=== PATIENT | female | born 1945 | race Caucasian/White ===

== ENCOUNTER → 2016-12-29 | Outpatient (CLI) | payer OTHER | LOC: CIMAGING 14:17 | PROVIDERS: ATTEND Internal Medicine | DX: M25.571 Pain in right ankle and joints of right foot (principal); F41.9 Anxiety disorder, unspecified; F32.9 Major depressive disorder, single episode, unspecified; G60.8 Other hereditary and idiopathic neuropathies | CPT/HCPCS: 73610; G0463 ==

== ENCOUNTER → 2017-03-09 | Outpatient (CLI) | payer OTHER | LOC: CIMAGING 16:59 | PROVIDERS: ATTEND Internal Medicine | DX: M51.36 Other intervertebral disc degeneration, lumbar region (principal) | CPT/HCPCS: 73502-PO ==

== ENCOUNTER → 2017-03-19 | Outpatient (CLI) | payer OTHER | LOC: FIMAGING 13:46 | PROVIDERS: ATTEND Internal Medicine | DX: M51.36 Other intervertebral disc degeneration, lumbar region (principal); M99.73 Connective tissue and disc stenosis of intervertebral foramina of lumbar region; M51.27 Other intervertebral disc displacement, lumbosacral region; M51.86 Other intervertebral disc disorders, lumbar region ==

== ENCOUNTER → 2017-04-05 | Day surgery (SDC) | payer OTHER ==
[~2017-04-05] MED LIST: IOPAMIDOL (ISOVUE-M 300) 15 ML VIAL ONE; LIDOCAINE 1% 300 MG/30 ML SDV ONE; TRIAMCINOLONE ACETONIDE 200 MG/5 ML MDV IM ONE
== END | disposition home or self-care (01) ==
LOC: MERGE 14:26 → FIMAGING 14:26
PROVIDERS: ATTEND Internal Medicine
DX: M48.06 Spinal stenosis, lumbar region (principal)
CPT/HCPCS: J3301; Q9967

== ENCOUNTER 2017-04-15 15:44 | Emergency (ER) | payer OTHER ==
[2017-04-15 15:54] VITALS: O2SAT 93
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
[2017-04-15] MEDS ORDERED: NS 1,000 ML IV ONE (17:16)
[2017-04-15 18:09] LABS: % IMMATURE GRANULYOCYTES 0.9 % (0.0-1.1); ABSOLUTE IMMATURE GRANULOCYTES 0.13 10^3/uL (0.00-0.10); ABSOLUTE NRBC COUNT 0.02 10^3/uL (0-0.01); ADD DIFF? NO; ADD MORPH? NO; ADD SCAN? NO; ATYPICAL LYMPHOCYTE FLAG 0 (0-99); FRAGMENT RBC FLAG 0 (0-99); HEMATOCRIT 50.3 % (38.0-47.0); HEMOGLOBIN 16.5 g/dL (12.6-16.3); LEFT SHIFT FLG 0 (0-99); LIPEMIA HEMOLYSIS FLAG 80 (0-99); MEAN CELL HEMOGLOBIN 30.2 pg (27.9-34.1); MEAN CELL HEMOGLOBIN CONCENTR. 32.8 g/dL (32.4-36.7); MEAN PLATELET VOLUME 9.2 fL (8.7-11.7); NRBC-AUTO% 0.1 % (0.0-0.2); PLATELET CLUMPS FLAG 40 (0-99); PLATELET COUNT 308 10^3/uL (150-400); RED BLOOD CELL COUNT 5.47 10^6/uL (4.18-5.33); RED CELL DISTRIBUTION WIDTH 12.7 % (11.5-15.2)
[2017-04-15 18:45] LABS: ALANINE AMINOTRANSFERASE 57 IU/L (9-52); ALBUMIN 3.9 g/dL (3.5-5.0); ALKALINE PHOSPHATASE 49 IU/L (38-126); ANION GAP 9 mEq/L (8-16); ASPARTATE AMINOTRANSFERASE 30 IU/L (14-46); BILIRUBIN,TOTAL 0.8 mg/dL (0.1-1.4); BILIRUBIN-CONJUGATED 0.3 mg/dL (0.0-0.5); BILIRUBIN-UNCONJUGATED 0.5 mg/dL (0.0-1.1); CALCIUM 8.6 mg/dL (8.5-10.4); CARBON DIOXIDE 17 mEq/l (22-31); CHLORIDE 116 mEq/L (97-110); CREATININE 0.8 mg/dL (0.6-1.0); GLOMERULAR FILTRATION RATE > 60; GLUCOSE 70 mg/dL (70-100); POTASSIUM 4.4 mEq/L (3.5-5.2); SODIUM 142 mEq/L (134-144)
[2017-04-15 18:57] LABS: TROPONIN I < 0.012 ng/mL (0-0.034)
[2017-04-15 19:16] VITALS: BP 123/84; PULSE 84; RESP 20; TEMP 97.9
== END 2017-04-15 19:34 | disposition home or self-care (01) ==
DX: R19.7 Diarrhea, unspecified (principal); E86.0 Dehydration

== ENCOUNTER 2017-06-10 15:19 | Emergency (ER) | payer OTHER | END 2017-06-10 15:45 | disposition left against medical advice (07) | LOC: CED 15:19 | DX: Z53.21 Procedure and treatment not carried out due to patient leaving prior to being seen by health care provider (principal) ==

== ENCOUNTER → 2017-07-31 | Outpatient (CLI) | payer OTHER | LOC: FIMAGING 11:32 | PROVIDERS: ATTEND Anesthesiology Pain Medicine | DX: M51.34 Other intervertebral disc degeneration, thoracic region (principal); M51.84 Other intervertebral disc disorders, thoracic region ==

== ENCOUNTER 2017-11-22 11:08 | Inpatient (IN) | payer OTHER ==
[2017-11-22 11:40] LABS: PLATELET COUNT 420 10^3/uL (150-400)
[2017-11-22] MEDS ORDERED: ONDANSETRON 4 MG/2 ML VIAL IVP ONE (12:35)
[2017-11-22] MEDS ORDERED: NS 1,000 ML IV ONE (12:36)
--- NOTE | 2017-11-22 12:56 | EDPHY ---
H & P Time Seen by Provider: 11/22/17 11:33 HPI/ROS: Chief complaint. Vomiting, diarrhea HPI. Patient is 71-year-old female with vomiting and diarrhea for 3 days. Unable to keep fluids down. Denies abdominal pain, chest pain, shortness of breath, fever. No blood in emesis or diarrhea. She thinks it was from bad food exposure. She lives by herself and has had difficult time taking care of herself. No similar symptoms previously. ROS Constitutional. no fever/chills, no weakness Eyes. no problems with vision ENT. no sore throat, no nasal drainage Cardiovascular. no chest pain Respiratory. no shortness of breath, no cough Abdominal. Vomiting and diarrhea without abdominal pain . no problems urinating MS. no calf pain/swelling, no neck/back pain, no joint pain Skin. no rash Lymph. no swollen glands Neuro. no headache, no dizziness, no difficulty walking or with speech Past Medical/Surgical History: Chronic pain, IBS, insufficient pancreatic enzymes, depression Social History: Lives by self, daily smoker, no alcohol Smoking Status: Current every day smoker Physical Exam: General Appearance: Alert well-developed female mild distress vital signs are stable Eyes: Pupils equal and round no pallor or injection. ENT, mucous membranes are dry. Pharynx without injection. Respiratory: There are no retractions, lungs are clear to auscultation. Cardiovascular: Regular rate and rhythm. Gastrointestinal: Abdomen is soft and nontender, no masses, bowel sounds normal. Neurological: Awake and alert, sensory and motor exams grossly normal. Skin: Warm and dry, no rashes. Musculoskeletal: Neck is supple nontender. Extremities symmetrical, full range of motion. Psychiatric: Patient is oriented X 3, there is no agitation. Constitutional: Initial Vital Signs Temperature (C) 36.9 C 11/22/17 11:08 Heart Rate 95 11/22/17 11:08 Respiratory Rate 16 11/22/17 11:08 Blood Pressure 128/70 H 11/22/17 11:08 O2 Sat (%) 88 L 11/22/17 11:08 O2 Delivery Mode Nasal Cannula O2 (L/minute) 2 Allergies/Adverse Reactions: No Known Allergies Allergy (Verified 04/15/17 15:50) Home Medications: Medication Instructions Recorded Venlafaxine Xr [Effexor Xr] 37.5 mg PO 12/30/14 Zenphen 12/30/14 buPROPion [Wellbutrin] 75 mg PO 12/30/14 tiZANidine HCL [Zanaflex] 2 mg PO 12/30/14 Wellbutrin 150mg SR (*) mg PO DAILY 03/29/17 traMADol 11/22/17 Medical Decision Making Procedures: IV normal saline with 2nd L home after the 1st L. Zofran for nausea. Zofran is repeated. ED Course/Re-evaluation: I consulted and discussed case with Dr. Means, hospitalist, who agrees to the admission On re-evaluation patient is stable. She and I discussed laboratory evaluation, treatment plan including recommendation for admission. She expresses understanding and agreement Differential Diagnosis: Patient has a markedly elevated white blood cell count however she has no abdominal pain. She has now elevation of her creatinine likely representing dehydration. As she does not have abdominal pain and she has an elevated creatinine no imaging of her abdomen is performed. I considered IBS, gastroenteritis - Data Points Laboratory Results: Laboratory Results 11/22/17 11:08 11/22/17 11:08 11/22/17 11/22/17 11/22/17 11:08 11:08 11:08 WBC 18.61 10^3/uL H 10^3/uL (3.80-9.50) RBC 5.44 10^6/uL H 10^6/uL (4.18-5.33) Hgb 16.9 g/dL H g/dL (12.6-16.3) Hct 49.9 % H % (38.0-47.0) MCV 91.7 fL fL (81.5-99.8) MCH 31.1 pg pg (27.9-34.1) MCHC 33.9 g/dL g/dL (32.4-36.7) RDW 13.4 % % (11.5-15.2) Plt Count 420 10^3/uL H 10^3/uL (150-400) MPV 10.0 fL fL (8.7-11.7) Neut % (Auto) 83.5 % H % (39.3-74.2) Lymph % (Auto) 8.9 % L % (15.0-45.0) Gilchrist % (Auto) 6.9 % % (4.5-13.0) Eos % (Auto) 0.0 % L % (0.6-7.6) Baso % (Auto) 0.2 % L % (0.3-1.7) Nucleat RBC Rel Count 0.0 % % (0.0-0.2) Absolute Neuts (auto) 15.53 10^3/uL H 10^3/uL (1.70-6.50) Absolute Lymphs (auto) 1.65 10^3/uL 10^3/uL (1.00-3.00) Absolute Monos (auto) 1.29 10^3/uL H 10^3/uL (0.30-0.80) Absolute Eos (auto) 0.00 10^3/uL L 10^3/uL (0.03-0.40) Absolute Basos (auto) 0.04 10^3/uL 10^3/uL (0.02-0.10) Absolute Nucleated RBC 0.00 10^3/uL 10^3/uL (0-0.01) Immature Gran % 0.5 % % (0.0-1.1) Immature Gran # 0.10 10^3/uL 10^3/uL (0.00-0.10) Sodium 149 mEq/L H mEq/L (135-145) Potassium 3.9 mEq/L mEq/L (3.5-5.2) Chloride 93 mEq/L L mEq/L (97-110) Carbon Dioxide 34 mEq/l H mEq/l (22-31) Anion Gap 22 mEq/L H mEq/L (8-16) BUN 27 mg/dL H mg/dL (7-23) Creatinine 1.4 mg/dL H mg/dL (0.6-1.0) Estimated GFR 37 Glucose 147 mg/dL H mg/dL (70-100) Calcium 10.9 mg/dL H mg/dL (8.5-10.4) Phosphorus 5.6 mg/dL H mg/dL (2.5-4.5) Total Bilirubin 1.2 mg/dL mg/dL 1.1 mg/dL mg/dL (0.1-1.4) (0.1-1.4) Conjugated Bilirubin 0.6 mg/dL H mg/dL (0.0-0.5) Unconjugated Bilirubin 0.6 mg/dL mg/dL (0.0-1.1) AST 32 IU/L IU/L 29 IU/L IU/L (14-46) (14-46) ALT 41 IU/L IU/L 43 IU/L IU/L (9-52) (9-52) Alkaline Phosphatase 92 IU/L IU/L 93 IU/L IU/L (38-126) (38-126) Total Protein 7.9 g/dL g/dL 7.9 g/dL g/dL (6.3-8.2) (6.3-8.2) Albumin 4.8 g/dL g/dL 4.9 g/dL g/dL (3.5-5.0) (3.5-5.0) Lipase 205 IU/L IU/L (23-300) Medications Given: Discontinued Medications Sodium Chloride (Ns) 1,000 mls @ 0 mls/hr IV ONCE ONE PRN Reason: Wide Open Stop: 11/22/17 12:37 Last Admin: 11/22/17 12:39 Dose: 1,000 mls Ondansetron HCl (Zofran) 4 mg IVP EDNOW ONE Stop: 11/22/17 12:36 Last Admin: 11/22/17 12:39 Dose: 4 mg Departure - Departure Disposition: [facility] Clinical Impression: Dehydration Vomiting Qualifiers: Vomiting type: unspecified Vomiting Intractability: non-intractable Nausea presence: with nausea Qualified Code(s): R11.2 - Nausea with vomiting, unspecified Condition: Fair
[2017-11-22] MEDS ORDERED: PROMETHAZINE HCL 25 MG/ML INJ IVP ONE (14:33)
[2017-11-22] MEDS ORDERED: LORazepam 1 MG TAB PO PRN (16:21)
[2017-11-22] MEDS ORDERED: traMADol 50 MG TAB PO PRN (16:21)
[2017-11-22] MEDS ORDERED: ACETAMINOPHEN 325 MG TAB PO PRN (16:25)
[2017-11-22] MEDS ORDERED: ACETAMINOPHEN 650 MG SUPP PR PRN (16:25)
[2017-11-22] MEDS ORDERED: AMYLASE PO SCH ×2 (16:30→18:00)
[2017-11-22] MEDS ORDERED: LIPASE PO SCH ×2 (16:30→18:00)
[2017-11-22] MEDS ORDERED: PROTEASE PO SCH ×2 (16:30→18:00)
--- NOTE | 2017-11-22 17:12 | GHP ---
[f rep st] HISTORY AND PHYSICAL DATE OF ADMISSION: 11/22/2017 CHIEF COMPLAINT: Abdominal pain. HISTORY: Patient is a 71-year-old female who has had 5 days of nausea, vomiting and diarrhea. It yun s been really more vomiting predominant. She only had diarrhea for 1 day and none for the last coupl e of days. She has a left-sided abdominal pain which she has been attributing to retching. She denie s any fever. She has had some shortness of breath but no chest pain. She thinks she may have eaten something bad because when she vomits she gets the after taste of a [place]ic sauce she put on her food pr ior to her illness. PAST MEDICAL HISTORY: 1. Pancreatic insufficiency. 2. Irritable bowel syndrome. 3. Depression. MEDICATIONS: Please see computer record for full detailed list. ALLERGIES: No known drug allergies. SOCIAL HISTORY: She smokes 3-10 cigarettes per day. One alcoholic beverage per day. She lives [place]. She is getting weaker with this illness. REVIEW OF SYSTEMS: Complete review of systems obtained. Review of systems negative regarding consti tutional, HEENT, GI, pulmonary, cardiovascular, , hematology, skin, musculoskeletal, endocrine, psy ch except for positives and negatives as in HPI. FAMILY HISTORY: Reviewed, noncontributory to presenting complaint. PHYSICAL EXAMINATION: GENERAL: Well-developed female, in no acute distress. VITAL SIGNS: Temperat ure is 36.7, pulse 89, blood pressure 100/60, saturating 88% on room air, 90% on 4 L. EYE: Normal co njunctivae, pupils react to light. ENT: Normal ears, nose. Hearing intact. Normal teeth. Orophary nx moist. NECK: Trachea midline. No thyromegaly. CHEST: Normal, several bilaterally. CAR DIOVASCULAR: Regular rhythm. No murmur. No lower extremity edema. ABDOMEN: Soft. Positive tender ness to palpation left upper quadrant. No hepatosplenomegaly. SKIN: Warm, dry, intact without rash . MUSCULOSKELETAL: No cyanosis, clubbing. Strength 5/5 upper and lower extremities. NEUROLOGIC: C ranial nerves intact, normal sensation light touch. PSYCH: Alert, oriented x3. Normal affect. Martha l judgment. Normal memory. LABORATORY DATA: White count 18.6, hematocrit 49.9, platelets 420, sodium 149, potassium 3.9, chlori de 93, bicarb 34, BUN 27, creatinine 1.4, glucose 147, LFTs are negative. Calcium 10.9, phosphorus 5 .6. This case was discussed with Angel Lopez, emergency room provider. No further imaging was done in [facility] emergency room. ASSESSMENT/PLAN: 1. Intractable nausea, vomiting, and abdominal pain. With her leukocytosis, I think we probably nee d to proceed with a CT scan of the abdomen and pelvis. This syndrome has been going on now for great er than 5 days without relief. We will also check a lactate. 2. Hypoxemia. She is a smoker. We will check a chest x-ray. 3. Acute renal failure due to dehydration. We will continue aggressive IV fluid rehydration. 4. Pancreatic insufficiency. She takes oral enzymes with meals which will be continued as she progr ess her p.o. intake. 5. Tobacco dependence. She can have a nicotine patch if she is feeling withdrawal. 6. Hypercalcemia and hyperphosphatemia. I suspect these are due to her profound dehydration. We wi ll recheck these post hydration. CODE STATUS: Full. ADMISSION STATUS: Will admit to observation. Reevaluate tomorrow regarding ongoing hospitalization. DVT PROPHYLAXIS: She is moderate risk. Will place her on subcu Lovenox. /[id number]/MODL
[2017-11-22] MEDS: HYDROmorphONE/DILAUDID 2 MG/ML INJ IVP PRN (17:28)
[2017-11-22] MEDS: NS 1,000 ML IV SCH (17:29)
--- NOTE | 2017-11-22 21:44 | SOAPPROG ---
SOAP Progress Note Assessment/Plan: Assessment: Asked to see for a 71-year-old female with possible free air. Patient is been sick for over 2 days with 0 vomiting and inability to eat. Came to the ER for evaluation where chest x-ray showed possible free air. Chest is clear/cor regular rhythm/abdomen soft and nontender with positive bowel sounds Impression is possible free air but her symptoms do not fit a perforated viscus. She is afebrile. White count was elevated 18,000 but she had been vomiting Plan: Check CT scan to rule out actual free air as this could be a loop of bowel over the liver or some other explanation 11/22/17 21:41 Objective: Vital Signs Temp Pulse Resp BP Pulse Ox 37.2 C 91 16 129/90 H 94 11/22/17 19:36 11/22/17 20:30 11/22/17 20:30 11/22/17 19:36 11/22/17 20:30 11/21/17 11/22/17 11/23/17 05:59 05:59 05:59 Intake Total 1500 Output Total 300 Balance 1200 ICD10 Worksheet Patient Problems: Problems Problem Status Onset Dehydration Acute Vomiting Acute Diarrhea Acute
[2017-11-22] MEDS: ACETAMN/DIPHENHYDRAMINE 500/25MG TAB PO SCH (21:53)
[2017-11-22] MEDS: buPROPion XL 150 MG TAB PO SCH (21:53)
[2017-11-22] MEDS: PREGABALIN 100 MG CAP PO SCH (21:53)
[2017-11-22] MEDS: VENLAFAXINE XR 75 MG CAP PO SCH (21:53)
[2017-11-23] MEDS: buPROPion XL 150 MG TAB PO SCH ×2 (00:55→22:52)
[2017-11-23] MEDS: ACETAMN/DIPHENHYDRAMINE 500/25MG TAB PO SCH ×2 (00:55→22:52)
[2017-11-23] MEDS: VENLAFAXINE XR 75 MG CAP PO SCH ×2 (00:55→22:52)
[2017-11-23] MEDS: PREGABALIN 100 MG CAP PO SCH ×5 (00:55→22:53)
[2017-11-23] MEDS: ONDANSETRON 4 MG/2 ML VIAL IVP PRN ×3 (02:40→22:46)
[2017-11-23 05:32] LABS: PLATELET COUNT 357 10^3/uL (150-400)
[2017-11-23] MEDS ORDERED: LIPASE PO SCH ×2 (09:00→10:15)
[2017-11-23] MEDS ORDERED: PROTEASE PO SCH ×2 (09:00→10:15)
[2017-11-23] MEDS ORDERED: AMYLASE PO SCH ×2 (09:00→10:15)
[2017-11-23] MEDS ORDERED: NICOTINE 21 MG/24 HR PATCH TD SCH (09:00)
[2017-11-23] MEDS: ENOXAPARIN 40 MG/0.4 ML SYR SC SCH (09:25)
--- NOTE | 2017-11-23 10:22 | ASMTCASEMG ---
Living Arrangements What is your living Answers: Alone arrangement? Who do you live with? Type Of Residence What kind of residence do Answers: House you live in? Discharge Plan Comments Coordination Status Comments Notes: Pt is a 71 y/o female admitted for abdominal pain. Pt will most likely d/c independent when medically stable. No therapies ordered at this time. CM available for changes. Plan: Independent Date Signed: 11/23/2017 10:21 AM Electronically Signed By:YAS Chavez
[2017-11-23] MEDS: NS 1,000 ML IV SCH ×2 (11:31→21:15)
[2017-11-23] MEDS: PANTOPRAZOLE SODIUM 40 MG TAB PO SCH (11:56)
[2017-11-23] MEDS: ZENPEP 25000 UNIT PO SCH (13:14)
--- NOTE | 2017-11-23 15:14 | HOSPPROG ---
Hospitalist Progress Note Assessment/Plan: This is a 71-year-old female new to my care on 11/23/2017 presenting with: # abdominal pain associated with intractable nausea vomiting which I suspect is due to acute gastroenteritis given her symptoms started with diarrhea on Wednesday (now improving but with clinical signs and symptoms of ileus) Plan: -surgery consult was reviewed and appreciated -start clear liquids -continue antiemetics as indicated #Acute renal failure (resolved) # leukocytosis most likely due to retching in the setting of gastroenteritis -continue to monitor # mild hypernatremia -repeat in a.m. # hypoxemia # tobacco dependence #pancreatic insufficiency # hypercalcemia and hyperphosphatemia likely due to dehydration Subjective: Still some nausea and gastric esophageal reflux. Able to tolerate some clear liquids. Denies abdominal pain Objective: Vital Signs Temp Pulse Resp BP Pulse Ox 37 C 96 14 115/55 L 91 L 11/23/17 11:27 11/23/17 11:27 11/23/17 11:27 11/23/17 11:27 11/23/17 11:27 Laboratory Results 11/23/17 05:12 11/23/17 05:12 11/22/17 11/23/17 11/24/17 05:59 05:59 05:59 Intake Total 1500 Output Total 600 Balance 900 - Physical Exam Constitutional: no apparent distress, appears nourished, not in pain Cardiovascular: regular rate and rhythym, no murmur, rub, or gallop Respiratory: no respiratory distress, no rales or rhonchi, clear to auscultation Gastrointestinal: soft, non-tender abdomen, no palpable masses, No normoactive bowel sounds (Hypoactive bowel sounds), No guarding, No rebound Neurologic: AAOx3, sensation intact bilaterally ICD10 Worksheet Patient Problems: Problems Problem Status Onset Diarrhea Acute Vomiting Acute Dehydration Acute
[2017-11-23] MEDS: HYDROmorphONE/DILAUDID 2 MG/ML INJ IVP PRN (16:26)
[2017-11-23] MEDS: LIPASE PO SCH (17:36)
[2017-11-23] MEDS: AMYLASE PO SCH (17:36)
[2017-11-23] MEDS: PROTEASE PO SCH (17:36)
[2017-11-23] MEDS: LORazepam 2 MG/ML INJ IVP PRN (19:23)
[2017-11-24] MEDS: PROMETHAZINE HCL 25 MG/ML INJ IVP PRN ×2 (00:38→22:10)
[2017-11-24] MEDS: LORazepam 2 MG/ML INJ IVP PRN ×3 (03:57→22:10)
[2017-11-24 07:18] LABS: PLATELET COUNT 287 10^3/uL (150-400)
[2017-11-24] MEDS: PREGABALIN 100 MG CAP PO SCH ×3 (08:35→21:49)
[2017-11-24] MEDS: ZENPEP 25000 UNIT PO SCH ×2 (08:35→13:10)
[2017-11-24] MEDS: ENOXAPARIN 40 MG/0.4 ML SYR SC SCH (08:56)
[2017-11-24] MEDS: HYDROmorphONE/DILAUDID 2 MG/ML INJ IVP PRN ×2 (08:56→13:19)
[2017-11-24] MEDS: PANTOPRAZOLE SODIUM 40 MG TAB PO SCH (08:56)
--- NOTE | 2017-11-24 09:35 | PDMN ---
Medical Necessity Medical necessity: M170- gastroenteritis: A-1 day: abd pain with diarrhea, concern for ileus, sgy consult pend., leukocytosis, hypernatremia, hypoxemia,) 88 RA 90% 2-4 L., minimal PO intake, further monitoring of electrolytes, abdominal pain, needed > 2 midnights
--- NOTE | 2017-11-24 12:08 | SOAPPROG ---
SOAP Progress Note Assessment/Plan: Assessment/Plan: 71 Y F diarrhea last week, N/V over weekend. Free air on CT. Nonsurgical abdomen on exam. Seen and examined by myself and Dr. Navarrete yesterday and again by myself this morning. +emesis yesterday afternoon. Reviewed AXR. Free air appears stable. Abdominal exam still benign. +gastric distention. Query GOO or ileus or gastroenteritis? Getting UGIS today per Dr. Navarrete' recommendation. Will continue to follow. S: didn't sleep well last night. some nausea. no emesis overnight. no BM. O: alert, nad ncat, no jaundice, no pallor, mmm ctab rrr abd soft, nt, +rare BS. 11/24/17 12:04 Objective: Vital Signs Temp Pulse Resp BP Pulse Ox 36.9 C 89 18 115/70 93 11/24/17 07:59 11/24/17 07:59 11/24/17 07:59 11/24/17 07:59 11/24/17 07:59 Laboratory Results 11/24/17 06:48 11/24/17 06:46 11/23/17 11/24/17 11/25/17 05:59 05:59 05:59 Intake Total 2982 Output Total 200 Balance 2782 ICD10 Worksheet Patient Problems: Problems Problem Status Onset Dehydration Acute Vomiting Acute Diarrhea Acute
--- NOTE | 2017-11-24 13:19 | HOSPPROG ---
Hospitalist Progress Note Assessment/Plan: Patient is a 71-year-old female who presented the emergency room with abdominal pain as well as nausea. Today is my 1st encounter the patient. Chart reviewed *abdominal pain associated with intractable nausea vomiting -free air was noted on the CT scan. Questionable gastric outlet obstruction versus ileus versus gastroenteritis -to get an upper GI series today -had another emesis with placement of the ng tube -GI to see to do an upper endoscopy #Acute renal failure (resolved) # leukocytosis -continue to monitor #hypernatremia -sodium is up to 150 -has been getting normal saline x 2 days, will change to d5 1/2 normal saline and get repeat labs -has no acute mental changes -not eating -will check a urine osmol and urine na # hypokalemia -add electrolyte protocol # hypoxemia -on 2 liters # tobacco dependence #pancreatic insufficiency -takes pancreatic enzymes # hypercalcemia and hyperphosphatemia likely due to dehydration -resolved #plan: Dr Tompkins to see, will change fluids and ask the swing shift physician to f/u with her sodium Subjective: Yumiko is not having any abdominal pain but is bloated. Has c/o pain from her chronic rib pain. Objective: Vital Signs Temp Pulse Resp BP Pulse Ox 36.9 C 89 18 115/70 93 11/24/17 07:59 11/24/17 07:59 11/24/17 07:59 11/24/17 07:59 11/24/17 07:59 Laboratory Results 11/24/17 06:48 11/24/17 06:46 11/23/17 11/24/17 11/25/17 05:59 05:59 05:59 Intake Total 2982 Output Total 200 Balance 2782 - Physical Exam Constitutional: uncomfortable Eyes: PERRL Ears, Nose, Mouth, Throat: hearing normal Respiratory: no respiratory distress Gastrointestinal: distension, No normoactive bowel sounds (hypoactive), No tenderness Skin: warm Musculoskeletal: full muscle strength Neurologic: AAOx3 Psychiatric: interacting appropriately ICD10 Worksheet Patient Problems: Problems Problem Status Onset Dehydration Acute Vomiting Acute Diarrhea Acute
[2017-11-24] MEDS ORDERED: PROTOCOL POTASSIUM 1 DOSE MISC PRN (13:22)
[2017-11-24] MEDS ORDERED: D5W 1,000 ML IV SCH (15:00)
[2017-11-24] MEDS ORDERED: LR 1,000 ML IV ONE ×2 (15:02→15:30)
[2017-11-24] MEDS ORDERED: LORazepam 2 MG/ML INJ IVP ONE (15:15)
[2017-11-24] MEDS: PROTEASE PO SCH (15:20)
[2017-11-24] MEDS ORDERED: fentaNYL 100 MCG/2 ML INJ ONE (15:20)
[2017-11-24] MEDS ORDERED: MIDAZOLAM 2 MG/2 ML VIAL ONE (15:20)
[2017-11-24] MEDS: LIPASE PO SCH (15:20)
[2017-11-24] MEDS: AMYLASE PO SCH (15:20)
--- NOTE | 2017-11-24 15:23 | PDPROPOC ---
Sedation Plan of Care Sedation Plan of Care: vital signs stable, mental status noted, patient educated of risks, benefits, alternatives, patient can tolerate sedation ASA Classification: ASA 3 Planned drugs: fentanyl, midazolam Mallampati Score: Class 3 Mallampati Reference Image: Patient passed 3-3-2 rule?: Yes
--- NOTE | 2017-11-24 15:41 | GCON ---
[f rep st] CONSULTATION CHIEF COMPLAINT: Dilated stomach, nausea and vomiting. HISTORY OF PRESENT ILLNESS: This 71-year-old woman has a 5-day history of nausea, vomiting, and diarrhea. She does have a history of irritable bowel syndrome, and pancreatic insufficiency. She has about a day's history of diarrhea with left-sided abdominal discomfort. Denies any fevers or chills. She had progressive problems with difficulty eating, unable to keep down liquids. She presented to the hospital, and chest x-ray reported free air in the abdomen. However, she had a CT scan that showed no free air. There was a dilated stomach. She had a fluid distended stomach. She also had evidence of atelectasis. She has no prior history of ulcer disease. Medicines prior to admission only included pancreatic enzyme supplements, Wellbutrin, tramadol. There was no report of NSAID use. Asked to see patient for further evaluation for possible gastric bowel obstruction. PAST MEDICAL HISTORY: Remarkable for pancreatic insufficiency, inflammatory bowel syndrome, depression. ALLERGIES: No known drug allergies. SOCIAL HISTORY: She is a smoker, smokes 3-10 cigarettes per day. One alcoholic beverage a day. Lives alone. FAMILY HISTORY: Negative and noncontributory as it pertains to chief complaint. MEDICATIONS: Prior to admission included pancreatic enzyme 25,000 units per capsule, 2 capsules twice daily, bupropion 300 mg at bedtime, tramadol 50 mg three times daily, Effexor 75 mg at bedtime, multivitamins, herbal supplements, vitamin D3, Tylenol PM, Lyrica 100 mg three times daily, lorazepam 1 mg three times daily, and Zanaflex 4 mg at bedtime. REVIEW OF SYSTEMS: Negative for 10 systems other than mentioned in HPI. PHYSICAL EXAM: VITAL SIGNS: 115/70, heart rate 89, respiratory rate 18, 93% sat on 2 L, 36.9 Celsius temperature. GENERAL: Very pleasant woman, in no acute distress. Sitting in a chair. HEENT: Normocephalic, atraumatic. EOMI. NECK: Supple. No cervical adenopathy. No thyromegaly. LUNGS: Clear. CARDIAC: Normal S1, S2, without murmur. ABDOMEN: Distended, with absent bowel sounds. EXTREMITIES: Without clubbing, cyanosis, edema. SKIN: Warm and dry. NEURO: Nonfocal. PSYCHIATRIC: Alert and oriented x3, with normal affect. LABORATORY DATA: Upper GI series shows markedly distended stomach with gastroesophageal reflux. No evidence of emptying of the stomach into the small bowel. CBC: White count of 15.51. Hemoglobin 11.8, hematocrit 37.4, platelets 287. Serum sodium 150, potassium 3.1, chloride 107, CO2 33, BUN 32, creatinine 0.7, blood sugar 99. ALT 41, AST of 32, total bilirubin 1.2. Lipase is 205. Sedimentation rate, IMPRESSION: A 71-year-old woman with nausea and vomiting, and distended abdomen. Rule out gastric outlet obstruction. RECOMMENDATIONS: Patient had an UGIS with barium this morning. Report stated barium was not passing out of the stomach. Will need to make sure barium is cleared out of her stomach prior to EGD. Will obtain an abdominal x-ray. If Barium clear will proceed with upper endoscopy for diagnostic and potentially therapeutic purposes. We will follow with you. /[id number]/MODL MTDD
[2017-11-24] MEDS ORDERED: fentaNYL 100 MCG/2 ML INJ IVP ONE (16:30)
[2017-11-24] MEDS ORDERED: MIDAZOLAM 2 MG/2 ML VIAL IVP ONE (16:30)
[2017-11-24] MEDS: D5W 1/2 NS 1,000 ML IV SCH (17:38)
[2017-11-24] MEDS: ACETAMN/DIPHENHYDRAMINE 500/25MG TAB PO SCH (21:49)
[2017-11-24] MEDS: VENLAFAXINE XR 75 MG CAP PO SCH (21:49)
[2017-11-24] MEDS: buPROPion XL 150 MG TAB PO SCH (21:49)
[2017-11-24] MEDS: METOCLOPRAMIDE 10 MG/2 ML VIAL IVP SCH (23:49)
[2017-11-25] MEDS: POTASSIUM Cl (KCl) 10 MEQ in NS 100 ML IV SCH ×8 (01:03→23:19)
[2017-11-25] MEDS: HYDROmorphONE/DILAUDID 2 MG/ML INJ IVP PRN ×2 (01:15→16:57)
[2017-11-25] MEDS: LORazepam 2 MG/ML INJ IVP PRN ×2 (02:13→17:46)
[2017-11-25] MEDS ORDERED: NS 500 ML IV ONE ×3 (04:10→22:55)
[2017-11-25] MEDS: D5W 1/2 NS 1,000 ML IV SCH ×2 (04:45→17:01)
[2017-11-25 05:07] LABS: PLATELET COUNT 272 10^3/uL (150-400)
[2017-11-25] MEDS: METOCLOPRAMIDE 10 MG/2 ML VIAL IVP SCH ×3 (05:11→17:46)
--- NOTE | 2017-11-25 08:50 | HOSPPROG ---
Hospitalist Progress Note Assessment/Plan: Patient is a 71-year-old female who presented the emergency room with abdominal pain as well as nausea. *abdominal pain associated with intractable nausea vomiting -free air was noted on the CT scan. Questionable gastric outlet obstruction versus ileus versus gastroenteritis -Endoscopy today w Dr Tompkins - #hypotensive -giving fluid bolus #tachycardia #sepsis with associated tachycardia and hypotension -concern for pna -poss aspiration -check blood cx now (previous one w no growth) -check a resp panel and procalcitonin -transfer to ICU or step down #Acute renal failure (resolved) # leukocytosis -continue to monitor #hypernatremia -sodium improved and then increased # hypokalemia -add electrolyte protocol # hypoxemia -on 7 liters # tobacco dependence #pancreatic insufficiency -takes pancreatic enzymes # hypercalcemia and hyperphosphatemia likely due to dehydration -resolved #plan: reviewed her care with Dr Alfaro and Dr Tompkins, will tx to step down or ICU, Dr Tompkins will have general anesthesia available due to her increase O2 needs, checking blood cx, PCR, procalcitonin. Dr Tompkins will place NG while patient is under sedation Subjective: Yumiko is feeling short of breath, has no abdominal pain. Objective: Vital Signs Temp Pulse Resp BP Pulse Ox 36.7 C 121 H 16 87/59 L 91 L 11/25/17 07:18 11/25/17 07:18 11/25/17 07:18 11/25/17 07:18 11/25/17 07:18 Laboratory Results 11/25/17 04:48 11/25/17 04:48 11/24/17 11/25/17 11/26/17 05:59 05:59 05:59 Intake Total 2982 0 Output Total 200 Balance 2782 0 - Physical Exam Constitutional: not in pain, No no apparent distress (mild) Eyes: PERRL Ears, Nose, Mouth, Throat: hearing normal Cardiovascular: regular rate and rhythym, tachycardia Respiratory: reduced air movement, other (increase wob), No no respiratory distress Gastrointestinal: soft, non-tender abdomen Skin: warm Musculoskeletal: generalized weakness Neurologic: AAOx3 Psychiatric: interacting appropriately ICD10 Worksheet Patient Problems: Problems Problem Status Onset Dehydration Acute Vomiting Acute Diarrhea Acute
[2017-11-25] MEDS: ERTAPENEM 1 GM VIAL IVP SCH (09:39)
[2017-11-25] MEDS: PREGABALIN 100 MG CAP PO SCH ×3 (10:04→21:39)
[2017-11-25] MEDS: PANTOPRAZOLE SODIUM 40 MG TAB PO SCH (10:04)
[2017-11-25] MEDS: ZENPEP 25000 UNIT PO SCH ×2 (10:04→13:41)
--- NOTE | 2017-11-25 10:37 | PDANEPAE ---
ANE History of Present Illness Upper GI bleeding ANE Past Medical History - Pulmonary History Hx Oxygen in Use at Home: No Hx Sleep Apnea: No Sleep Apnea Screening Result - Last Documented: Positive - Endocrine History Hx Diabetes: No - Chronic Pain History Chronic Pain: Yes ANE Review of Systems Review of Systems: ANE Patient History - Allergies Allergies/Adverse Reactions: No Known Allergies Allergy (Verified 04/15/17 15:50) - Home Medications Home Medications: Lipase/Protease/Amylase [Zenpep Dr 25,000 Units Capsule] 2 each PO BID@ [Last Taken 3 Days Ago ~11/19/17] buPROPion XL [Wellbutrin Xl] 300 mg PO HS 03/29/17 [Last Taken 3 Days Ago ~11/19] Acetamn/Diphenhydramine 500/25 [Tylenol PM (*)] 1 each PO HS 11/22/17 [Last Taken 3 Days Ago ~11/19/17] Cholecalciferol Vit D3 [Vitamin D3 (*)] 1,000 units PO DAILY 11/22/17 [Last Taken 3 Days Ago ~11/19/17] Herbals/Supplements -Info Only 1 ea PO DAILY 11/22/17 [Last Taken 3 Days Ago ~] LORazepam [Ativan (*)] 1 mg PO TID PRN 11/22/17 [Last Taken 3 Days Ago ~11/19/17 ] Lipase/Protease/Amylase [Zenpep Dr 25,000 Units Capsule] 2 each PO AD 11/22/17 [ Last Taken 3 Days Ago ~11/19/17] Lipase/Protease/Amylase [Zenpep Dr 25,000 Units Capsule] 3 each PO DAILY18 11/22 [Last Taken 3 Days Ago ~11/19/17] Multivitamins [Multivitamin (*)] 1 each PO DAILY 11/22/17 [Last Taken 3 Days Ago ~11/19/17] Pregabalin [Lyrica 100mg (*)] 100 mg PO TID 11/22/17 [Last Taken 3 Days Ago ~05/31] Tizanidine HCl [Zanaflex] 4 mg PO HS 11/22/17 [Last Taken 3 Days Ago ~11/19/17] Venlafaxine Xr [Effexor Xr 75MG (*)] 75 mg PO HS 11/22/17 [Last Taken 3 Days Ago ~11/19/17] traMADol [Ultram 50 mg (*)] 50 mg PO TID PRN 11/22/17 [Last Taken 3 Days Ago ~] - NPO status NPO Since - Liquids (Date): 11/24/17 NPO Since - Liquids (Time): 11:00 NPO Since - Solids (Date): 11/23/17 NPO Since - Solids (Time): 00:00 - Anes Hx Anes Hx: no prior problems - Smoking Hx Smoking Status: Current every day smoker ANE Labs/Vital Signs - Labs Result Diagrams: 11/25/17 04:48 11/25/17 09:10 - Vital Signs Blood Pressure: 98/84 Heart Rate: 107 Respiratory Rate: 18 O2 Sat (%): 94 Height: 167.64 cm Weight: 65.7 kg ANE Physical Exam - Airway Neck exam: FROM Mallampati Score: Class 2 Mouth exam: normal dental/mouth exam - Pulmonary Pulmonary: no respiratory distress - Cardiovascular Cardiovascular: regular rate and rhythym - ASA Status ASA Status: III ANE Anesthesia Plan Anesthesia Plan: general endotracheal anesthesia, MAC
[2017-11-25] MEDS: ENOXAPARIN 40 MG/0.4 ML SYR SC SCH (10:47)
[2017-11-25] MEDS ORDERED: fentaNYL 100 MCG/2 ML INJ ONE (10:49)
[2017-11-25] MEDS ORDERED: LIDOCAINE 2% 5 ML SDV ONE (10:49)
[2017-11-25] MEDS ORDERED: PROPOFOL 200 MG/20 ML VIAL ONE (10:50)
--- NOTE | 2017-11-25 11:53 | GIREPORT ---
[facility] Surgical Services - Endoscopy Department Patient Name: Roseline Ramsey Procedure Date: 11/25/2017 10:48 AM Patient Type: Inpatient Attending MD/ ER Physician: Beto Tompkins MD Procedure: Upper GI endoscopy Indications: Abnormal abdominal x-ray of the GI tract, Abnormal UGI series, Abnormal CT of the GI tract, Nausea with vomiting, Gastric Outlet Obstruction Providers: Beto Tompkins MD Medicines: Sedation Required Anesthesia Staff Assistance Complications: No immediate complications. Description of Procedure: After obtaining informed consent, the endoscope was passed under direct vision. Throughout the procedure, the patient's blood pressure, pulse, and oxygen saturations were monitored continuously. The Endoscope was intro duced through the mouth, and advanced to the second part of duodenum. The [facility] er GI endoscopy was accomplished without difficulty. The patient tolerated th e procedure well. Findings: LA Grade D (one or more mucosal breaks involving at least 75% of esopha geal circumference) esophagitis was found in the entire esophagus. A large, poylpoid mass was found at the gastroesophageal junction, 40 c m from the incisors. The mass was non-obstructing and circumferential. Biopsies were taken with a cold forceps for histology. Excessive fluid was found in the entire examined stomach. Fluid aspirat ion for cytology was performed. Dilated, Elongated fluid filled stomach. The pylorus was normal. A large frond-like/villous mass with no bleeding was found in the secon d portion of the duodenum. Biopsies were taken with a cold forceps for histology. Biopsies were taken with a cold forceps for histology. I was able to pass endoscope beyond the duodenal tumor. Distal duodenum appeared normal. There was a samll poypoid lesion in the distal duodenum, not biopsied. Estimated Blood Loss: Estimated blood loss: none. Post Op Diagnosis: - LA Grade D reflux esophagitis. 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 Biopsied . - Excessive gastric fluid. Fluid aspiration performed. - Normal pylorus. - Duodenal mass. Biopsied. Recommendation: - NPO. - NG Suction (low intermittent) with decompression of the stomach. - Use Protonix (pantoprazole) 40 mg IV BID. - Thank you for allowing me to participate in the care of your patient. Attending Participation: I personally performed the entire procedure. Beto Tompkins MD Beto Tompkins MD 11/25/2017 11:53:06 AM This report has been signed electronicallyStlayne Tompkins MD Number of Addenda: 0 Note Initiated On: 11/25/2017 10:48 AM [email or web address]
--- NOTE | 2017-11-25 11:57 | HOSPPROG ---
Hospitalist Progress Note Assessment/Plan: Pt was sent to the ICU due to Aspiration pneumonia and possible Sepsis. Patient is a 71-year-old female who presented the emergency room with abdominal pain as well as nausea. #Aspiration Pneumonia, requiring 7 L -Does not appear to be barium -cont with Ertapenem started this morning -Repeat CXR in a.m. #acute Resp Failure, likely to above #Possible Sepsis: -cont abx per above -Appears to have responded well to IVF trial -cont IVF, will increase dose -No indications for pressors at this time -PC pending -Blood cultures are pending, original set is NGTD #Gastric Outlet obstruction vs Gastroparesis. Retained Barium after UPGI series -will have Upped Endoscopy today -NPO -Reglan #Questionable free air on XR, not seen on CT -Surgery is following -Does not have a surgical abdomen #Hypernatremia, likely due to volume depletion: -Cont with IVF -She received NS bolus today #Acute renal failure (resolved) # hypokalemia -on electrolyte protocol # tobacco dependence, on exam this morning does not have active wheezing. #pancreatic insufficiency -takes pancreatic enzymes # hypercalcemia and hyperphosphatemia likely due to dehydration -resolved Plan: per above transfer to ICU IVF Abx Repeat CXR Repeal labs in am. GI to perform Upper endoscopy d/w ICU team. D/w referring hospitalist total critical care time managing this patient with possible Sepsis is 45 minutes Subjective: hypotension, on 7 L O2. The patient feels a little weak, but no other complaints. Not dizzy. No abd pain or discomfort. Objective: Vital Signs Temp Pulse Resp BP Pulse Ox 36.7 C 107 H 18 98/84 H 94 11/25/17 10:20 11/25/17 11:18 11/25/17 11:18 11/25/17 11:18 11/25/17 11:18 Laboratory Results 11/25/17 04:48 11/25/17 09:10 11/24/17 11/25/17 11/26/17 05:59 05:59 05:59 Intake Total 2982 0 Output Total 200 Balance 2782 0 - Physical Exam Constitutional: no apparent distress Eyes: PERRL, EOMI Ears, Nose, Mouth, Throat: dry mucous membranes Cardiovascular: tachycardia, No edema Respiratory: no respiratory distress, reduced air movement, No expiratory wheeze Gastrointestinal: distension, No tenderness, No rebound Skin: warm Musculoskeletal: generalized weakness Neurologic: AAOx3 Psychiatric: interacting appropriately, not anxious, not encephalopathic Lymph, Heme, Immunologic: No petechiae ICD10 Worksheet Patient Problems: Problems Problem Status Onset Dehydration Acute Vomiting Acute Diarrhea Acute
--- NOTE | 2017-11-25 11:58 | POSTANESTH ---
Post Anesthetic Evaluation Cardiovascular Status: Similar to Pre-Op Cond Respiratory Status: Similar to Pre-op Cond. Level of Consciousness/Mental Status: Alert and Oriented Pain Control: Adequate, Prn Tx Ordered Nausea/Vomiting Control: Adequate, Prn Tx Ordered Complications Possibly Related to Anesthesia: None Noted
--- NOTE | 2017-11-25 15:31 | GCON ---
[f rep st] CONSULTATION EXECUTIVE OFFICER [employer] TEAM CONSULTATION REASON FOR ADMISSION TO INTENSIVE CARE UNIT: Hypoxemia and aspiration pneumonia. HISTORY OF PRESENT ILLNESS: The patient is a very pleasant 71-year-old white female with a past medi alejandrina history including pancreatic insufficiency, irritable bowel syndrome, and depression. She was ad mitted on 11/22/2017 with intractable nausea and vomiting. She was initially admitted to the floor; however, yesterday she had significant nausea/vomiting and likely had aspiration. Her oxygen require ments had increased to the point where she was transferred to the step-down unit. She underwent uppe r endoscopy earlier today. In discussion, the patient states that with the exception of being thirst y and somewhat hungry, she is doing quite well. Her nausea is currently at bay. She denies any ches t pain, pleuritic-type chest pain, or angina. She does admit to a cough that is distinctly nonproduc tive. There is no fever or night sweats. PAST MEDICAL HISTORY: Again, significant for pancreatic insufficiency, irritable bowel syndrome, dep ression. REVIEW OF SYSTEMS: 10-point review of system was obtained and is negative with the exception of what is listed in the HPI. ALLERGIES: None known to medications. FAMILY HISTORY: Noncontributory. SOCIAL HISTORY: She is a 45-olpd-oxry smoker and continues to smoke 3-10 cigarettes per day. She dr inks 1 alcoholic drink per day. She lives alone. PHYSICAL EXAMINATION: VITAL SIGNS: Blood pressure is 92/55, pulse is 106, respirations 18, temperat ure 37.2, oxygen saturation 94% on 12 L OxyMask. GENERAL: She is a thin but well-developed elderly white female who is currently resting comfortably on supplemental oxygen. HEENT: Eyes are PERRLA, E JILLIAN. Throat shows no erythema or tonsillar hypertrophy. NECK: Supple. No cervical adenopathy. HE ART: Regular rate and rhythm with a 2/6 systolic murmur at the left sternal border without radiation . LUNGS: Diminished breath sounds. A few bibasilar crackles, right greater the left. ABDOMEN: So ft, nontender. Bowel sounds are present. EXTREMITIES: No clubbing, cyanosis, or edema. LABORATORIES: White count is 15.3, hemoglobin 9.9, hematocrit 31, platelet count is 272. Sodium is 145, potassium 3.0, chloride 108, CO2 is 35, BUN is 31, creatinine 0.7, glucose is 118. Chest x-ray shows evidence of a right lower lobe infiltrate. There is some evidence of consolidation on the left as well. Upper endoscopy revealed grade B reflux esophagitis. There was an esophageal tumor found at the marin roesophageal junction and there is a duodenal mass, both of which were biopsied. IMPRESSION: 1. Aspiration pneumonia. 2. Acute respiratory failure. 3. Intractable nausea and vomiting. 4. Esophageal and duodenal tumors. 5. Pancreatic insufficiency. 6. Irritable bowel syndrome. 7. Depression. 8. Hypernatremia. 9. Hypokalemia. RECOMMENDATIONS: 1. Agree with supplemental oxygen; wean FiO2 as tolerated. 2. Agree with ertapenem for aspiration coverage. 3. Await pathology report. 4. DVT and PE prophylaxis. 5. Stress ulcer prophylaxis. 6. Hopefully some nutrition soon. /[id number]/MODL
[2017-11-25] MEDS: ONDANSETRON 4 MG/2 ML VIAL IVP PRN (16:58)
[2017-11-25] MEDS: AMYLASE PO SCH (17:21)
[2017-11-25] MEDS: PROTEASE PO SCH (17:21)
[2017-11-25] MEDS: LIPASE PO SCH (17:21)
[2017-11-25] MEDS: buPROPion XL 150 MG TAB PO SCH (21:39)
[2017-11-25] MEDS: ACETAMN/DIPHENHYDRAMINE 500/25MG TAB PO SCH (21:39)
[2017-11-25] MEDS: VENLAFAXINE XR 75 MG CAP PO SCH (21:39)
[2017-11-26] MEDS: METOCLOPRAMIDE 10 MG/2 ML VIAL IVP SCH ×4 (00:12→18:36)
[2017-11-26] MEDS: HYDROmorphONE/DILAUDID 2 MG/ML INJ IVP PRN ×2 (01:21→23:32)
[2017-11-26] MEDS ORDERED: NS BOLUS 1000 ML (Wide open) IV ONE (01:30)
[2017-11-26] MEDS: D5W 1/2 NS 1,000 ML IV SCH (01:40)
[2017-11-26] MEDS: POTASSIUM Cl (KCl) 10 MEQ in NS 100 ML IV SCH ×6 (02:45→23:44)
[2017-11-26 05:23] LABS: PLATELET COUNT 247 10^3/uL (150-400)
[2017-11-26] MEDS ORDERED: POTASSIUM CL 10 MEQ TAB PO ONE (08:27)
[2017-11-26] MEDS: ENOXAPARIN 40 MG/0.4 ML SYR SC SCH (09:03)
[2017-11-26] MEDS: ERTAPENEM 1 GM VIAL IVP SCH (09:03)
[2017-11-26] MEDS: PREGABALIN 100 MG CAP PO SCH ×3 (09:03→21:16)
[2017-11-26] MEDS: PANTOPRAZOLE SODIUM 40 MG VIAL IVP SCH (09:04)
--- NOTE | 2017-11-26 09:27 | ASMTCMCOM ---
CM Note CM Note Notes: Patient was admitted for nausea and vomiting and was initially on the floor. However, on Wednesday patient had increased nausea and vomiting and likely had aspiration. Patient had an endoscopy yesterday which revealed grade B reflux esophagitis and an esophageal tumor found at the gastroesophageal junction, as well as a duodenal mass. Both of these were biopsied. Patient is now in the ICU and awaiting pathology report. D/C plan TBD. CM will follow. Date Signed: 11/26/2017 09:26 AM Electronically Signed By:Johanna Chan LCSW
--- NOTE | 2017-11-26 09:51 | PDINTPN ---
Community Sports Coordinator Progress Note Assessment/Plan: Assessment/plan: * Aspiration pneumonia-continue current antibiotics -check chest x-ray in morning * Respiratory-stable on minimal oxygen * Esophageal tumor-awaiting pathology * Duodenal mass-awaiting pathology * Pancreatic insufficiency * Interval bowel syndrome * Hypernatremia-sodium up to 150 today -will increase free water * VTE prophylaxis * Stress ulcer prophylaxis * Ambulation * Disposition-likely okay for floor Subjective: Sitting up in chair in resting comfortably. Denies any pain. Denies any breathlessness. States she is hungry Objective: Vital Signs Temp Pulse Resp BP Pulse Ox 36.9 C 112 H 18 92/43 L 90 L 11/26/17 08:00 11/26/17 08:00 11/26/17 08:00 11/26/17 08:00 11/26/17 08:00 Microbiology 11/26/17 03:40 - Final Sputum, Expectorated Sputum Culture - Final 11/25/17 14:14 Respiratory Panel (PCR) - Final Nasal, Sinus - Swab No Organism Detected Laboratory Results 11/26/17 04:30 11/26/17 04:30 11/25/17 11/26/17 11/27/17 05:59 05:59 05:59 Intake Total 0 4308 Output Total 1175 Balance 0 3133 - Time Spent With Patient Time Spent With Patient: 35 min of time spent with patient, over 1/2 involved with coordination of care or counseling Physical Exam - Physical Exam General Appearance: alert, no apparent distress EENT: PERRL/EOMI, normal ENT inspection Neck: non-tender Respiratory: chest non-tender, crackles (Bases), No respiratory distress Cardiac/Chest: normal peripheral pulses, regular rate, rhythm Peripheral Pulses: 2+: carotid (R), carotid (L), femoral (R), femoral (L), dorsalis-pedis (R), dorsalis-pedis (L) Abdomen: normal bowel sounds, non-tender, soft Pelvic Exam: deferred Rectal: deferred Skin: normal color, warm/dry Extremities: normal range of motion, non-tender, normal inspection, normal capillary refill Neuro/Psych: alert ICD10 Worksheet Patient Problems: Problems Problem Status Onset Dehydration Acute Vomiting Acute Diarrhea Acute
[2017-11-26] MEDS: ZENPEP 25000 UNIT PO SCH ×2 (10:33→16:11)
[2017-11-26 12:48] LABS: PLATELET COUNT 214 10^3/uL (150-400)
--- NOTE | 2017-11-26 13:51 | HOSPPROG ---
Hospitalist Progress Note Assessment/Plan: Patient is a 71-year-old female who presented the emergency room with abdominal pain as well as nausea. #Aspiration Pneumonia -Ertapenem #acute Resp Failure, likely to above, resolving #Possible Sepsis: -Blood cultures are pending, original set is NGTD #Gastric Outlet obstruction vs Gastroparesis. Retained Barium after UPGI series -NPO #Esophogeal and Duodenal Tumors -Biopsy results are pending #Questionable free air on XR, not seen on CT -Surgery is following -Does not have a surgical abdomen #Hypernatremia, likely due to volume depletion: #Anemia, source unclear #Acute renal failure (resolved) # hypokalemia -on electrolyte protocol # tobacco dependence, on exam this morning does not have active wheezing. #pancreatic insufficiency -takes pancreatic enzymes, on hold while NPO # hypercalcemia and hyperphosphatemia likely due to dehydration -resolved Plan: -Give 1 unit PRBC now -Cont IVF, can decrease to 75ml/hr after transfusion -BP's cont to be soft, expect some improvement with PRBC -Cont Ertapenem -Biopsies pending -Ok to transfer out of the ICU d/w ICU team. Subjective: feels better. minimal SOB. no CP. Afebrile. BP is still soft Objective: Vital Signs Temp Pulse Resp BP Pulse Ox 37.0 C 112 H 19 86/62 L 93 11/26/17 12:06 11/26/17 12:06 11/26/17 12:06 11/26/17 12:06 11/26/17 12:06 Microbiology 11/26/17 03:40 - Final Sputum, Expectorated Sputum Culture - Final 11/25/17 14:14 Respiratory Panel (PCR) - Final Nasal, Sinus - Swab No Organism Detected Laboratory Results 11/26/17 12:33 11/26/17 04:30 11/25/17 11/26/17 11/27/17 05:59 05:59 05:59 Intake Total 0 4308 Output Total 1175 Balance 0 3133 - Physical Exam Constitutional: no apparent distress Eyes: PERRL, EOMI Ears, Nose, Mouth, Throat: moist mucous membranes, hearing normal Cardiovascular: regular rate and rhythym, No edema Respiratory: no respiratory distress, reduced air movement Gastrointestinal: No distension Genitourinary: no bladder fullness Skin: warm Neurologic: AAOx3 Psychiatric: interacting appropriately, not anxious, not encephalopathic ICD10 Worksheet Patient Problems: Problems Problem Status Onset Dehydration Acute Vomiting Acute Diarrhea Acute
--- NOTE | 2017-11-26 14:06 | SOAPPROG ---
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 ? lesion at the GEJ biopsied. (due to retained fluid and barium stomach was difficult to evaluate. Plan: Await biopsy results. NPO, NG clamped. 11/26/17 14:03 Subjective: CC: Nausea and vomiting Complains of sore throat. Has had no BM'S. Objective: Vital Signs Temp Pulse Resp BP Pulse Ox 37.0 C 112 H 19 86/62 L 93 11/26/17 12:06 11/26/17 12:06 11/26/17 12:06 11/26/17 12:06 11/26/17 12:06 Microbiology 11/26/17 03:40 - Final Sputum, Expectorated Sputum Culture - Final 11/25/17 14:14 Respiratory Panel (PCR) - Final Nasal, Sinus - Swab No Organism Detected Laboratory Results 11/26/17 12:33 11/26/17 04:30 11/25/17 11/26/17 11/27/17 05:59 05:59 05:59 Intake Total 0 4308 Output Total 1175 Balance 0 3133 Generic Name Dose Route Start Last Admin Trade Name Freq PRN Reason Stop Dose Admin Acetaminophen 650 mg 11/22/17 16:25 Tylenol PO 05/21/18 16:24 Q4 PRN Pain, Mild/Fever, Can Take PO Acetaminophen 650 mg 11/22/17 16:25 Tylenol Rectal AK 05/21/18 16:24 Q4 PRN Pain, Mild/Fever,Can't Take PO Acetaminophen/Diphenhydramine HCl 1 each 11/22/17 21:00 11/25/17 21:39 Tylenol Pm PO 05/21/18 20:59 Not Given HS ANAMIKA Bupropion HCl 300 mg 11/22/17 21:00 11/25/17 21:39 Wellbutrin Xl PO 05/21/18 20:59 Not Given HS ANAMIAK Enoxaparin Sodium 40 mg 11/23/17 09:00 11/26/17 09:03 Lovenox SC 05/22/18 08:59 40 mg DAILY ANAMIKA Administration Ertapenem 1 gm 11/25/17 09:00 11/26/17 09:03 Invanz IVP 12/25/17 08:59 1 gm DAILY ANAMIKA Administration Protocol Hydromorphone HCl 0.2 - 0.4 mg 11/22/17 16:25 11/26/17 01:21 Dilaudid IVP 12/02/17 16:24 0.4 mg Q2HRS PRN Administration Pain, Severe Unable to Take PO Dextrose/Sodium Chloride 1,000 mls @ 75 mls/hr 11/24/17 15:15 11/26/17 01:40 D5w 1/2 Ns IV 05/23/18 15:14 1,000 mls CONT ANAMIKA Administration Lorazepam 1 mg 11/22/17 16:21 Ativan PO 05/21/18 16:20 TID PRN Anxiety Lorazepam 0.5 mg 11/23/17 18:05 11/25/17 17:46 Ativan Injection IVP 05/22/18 18:04 0.5 mg Q4HRS PRN Administration Anxiety, Unable to Take PO Metoclopramide HCl 10 mg 11/25/17 00:00 11/26/17 12:36 Reglan Injection IVP 05/24/18 00:00 10 mg Q6HRS ANAMIKA Administration Miscellaneous Medication 2 each 11/23/17 13:00 11/26/17 10:33 Lipase/Protease/Amylase [Zenpep Dr 25,000 Unit Capsule] PO 05/22/18 12:59 Not Given BID@09,13 ANAMIKA Miscellaneous Medication 3 each 11/23/17 18:00 11/25/17 17:21 Lipase/Protease/Amylase [Zenpep Dr 25,000 Unit Capsule] PO 05/22/18 17:59 Not Given DAILY18 ANAMIKA Miscellaneous Medication 2 each 11/23/17 10:15 Lipase/Protease/Amylase [Zenpep Dr 25,000 Unit Capsule] PO 05/22/18 10:14 AD ANAMIKA Ondansetron HCl 4 mg 11/22/17 16:25 11/25/17 16:58 Zofran IVP 05/21/18 16:24 4 mg Q4 PRN Administration Nausea/Vomiting, Can't Take PO Pantoprazole Sodium 40 mg 11/26/17 09:00 11/26/17 09:04 Protonix IVP 05/25/18 08:59 40 mg DAILY ANAMIKA Administration Potassium Chloride 1 dose 11/24/17 13:22 Protocol Potassium MISC 05/23/18 13:21 AD PRN Pt on Electrolyte Protocol Protocol Pregabalin 100 mg 11/22/17 22:00 11/26/17 09:03 Lyrica PO 05/21/18 21:59 100 mg TID ANAMIKA Administration Promethazine HCl 6.25 mg 11/22/17 16:25 11/24/17 22:10 Phenergan IVP 05/21/18 16:24 6.25 mg Q6 PRN Administration Nausea/Vomiting, Can't Take PO Tizanidine HCl 4 mg 11/22/17 21:00 11/25/17 21:39 Zanaflex PO 05/21/18 20:59 Not Given HS ANAMIKA Tramadol HCl 50 mg 11/22/17 16:21 Ultram PO 05/21/18 16:20 TID PRN Pain, Moderate Venlafaxine HCl 75 mg 11/22/17 21:00 11/25/17 21:39 Effexor Xr PO 05/21/18 20:59 Not Given HS ANAMIKA Discontinued Medications Generic Name Dose Route Start Last Admin Trade Name Freq PRN Reason Stop Dose Admin Fentanyl Confirm 11/24/17 15:20 Sublimaze Administered 11/24/17 15:21 Dose 200 mcg .ROUTE .STK-MED ONE Fentanyl 50 mcg 11/24/17 16:30 11/24/17 17:31 Sublimaze IVP 11/24/17 16:31 Not Given ONCE ONE Fentanyl Confirm 11/25/17 10:49 Sublimaze Administered 11/25/17 10:50 Dose 100 mcg .ROUTE .STK-MED ONE Sodium Chloride 1,000 mls @ 0 mls/hr 11/22/17 12:36 11/22/17 12:39 Ns IV 11/22/17 12:37 1,000 mls ONCE ONE Administration Wide Open Sodium Chloride 1,000 mls @ 100 mls/hr 11/22/17 16:30 11/23/17 21:15 Ns IV 05/21/18 16:29 1,000 mls CONT ANAMIKA Administration Dextrose 1,000 mls @ 75 mls/hr 11/24/17 15:00 D5w IV 05/23/18 14:59 CONT ANAMIKA Lactated Ringer's 1,000 mls @ 0 mls/hr 11/24/17 15:30 11/24/17 15:28 Lr IV 11/24/17 15:31 1,000 mls ONCALL ONE Administration As Directed Potassium Chloride 10 meq/ 100 mls @ 100 mls/hr 11/25/17 01:15 11/25/17 04:45 Sodium Chloride IV 11/25/17 05:14 100 mls Q1H ANAMIKA Administration Sodium Chloride 500 mls @ 0 mls/hr 11/25/17 04:10 11/25/17 04:14 Ns IV 11/25/17 04:11 500 mls ONCE ONE Administration Wide Open Sodium Chloride 500 mls @ 250 mls/hr 11/25/17 08:19 11/25/17 09:03 Ns IV 11/25/17 10:18 500 mls ONCE ONE Administration Potassium Chloride 10 meq/ 100 mls @ 100 mls/hr 11/25/17 20:15 11/25/17 23:19 Sodium Chloride IV 11/26/17 00:14 100 mls Q1H ANAMIKA Administration Sodium Chloride 500 mls @ 0 mls/hr 11/25/17 22:55 11/25/17 23:10 Ns IV 11/25/17 22:56 500 mls ONCE ONE Administration Wide Open Sodium Chloride 1,000 mls @ 0 mls/hr 11/26/17 01:30 11/26/17 02:10 Ns IV 11/26/17 01:31 1,000 mls ONCE ONE Administration Wide Open Potassium Chloride 10 meq/ 100 mls @ 100 mls/hr 11/26/17 02:45 11/26/17 04:48 Sodium Chloride IV 11/26/17 05:44 100 mls Q1H ANAMIKA Administration Lidocaine HCl Confirm 11/25/17 10:49 Xylocaine-Mpf 2% Vial Administered 11/25/17 10:50 Dose 5 ml .ROUTE .STK-MED ONE Lorazepam 0.5 mg 11/24/17 15:15 11/24/17 15:16 Ativan Injection IVP 11/24/17 15:16 0.5 mg ONCE ONE Administration Midazolam HCl Confirm 11/24/17 15:20 Versed Administered 11/24/17 15:21 Dose 8 mg .ROUTE .STK-MED ONE Midazolam HCl 1 mg 11/24/17 16:30 11/24/17 17:32 Versed IVP 11/24/17 16:31 Not Given ONCE ONE Miscellaneous Medication 2 each 11/22/17 16:30 Lipase/Protease/Amylase [Zenpep Dr 25,000 Unit Capsule] PO 05/21/18 16:29 AD ANAMIKA Miscellaneous Medication 2 each 11/23/17 09:00 11/23/17 10:31 Lipase/Protease/Amylase [Zenpep Dr 25,000 Unit Capsule] PO 05/22/18 08:59 Not Given BID@09,13 ANAMIKA Miscellaneous Medication 3 each 11/22/17 18:00 11/22/17 17:40 Lipase/Protease/Amylase [Zenpep Dr 25,000 Unit Capsule] PO 05/21/18 17:59 Not Given DAILY18 ANAMIKA Nicotine 21 mg 11/23/17 09:00 Nicoderm Cq TD 05/22/18 08:59 DAILY ANAMIKA Ondansetron HCl 4 mg 11/22/17 12:35 11/22/17 12:39 Zofran IVP 11/22/17 12:36 4 mg EDNOW ONE Administration Pantoprazole Sodium 40 mg 11/23/17 11:15 11/25/17 10:04 Protonix PO 05/22/18 11:14 Not Given DAILY ANAMIKA Potassium Chloride 30 meq 11/26/17 08:27 11/26/17 09:03 Klor-Con PO 11/26/17 08:28 30 meq ONCE ONE Administration Protocol Promethazine HCl 12.5 mg 11/22/17 14:33 11/22/17 14:44 Phenergan IVP 11/22/17 14:34 12.5 mg ONCE ONE Administration Propofol Confirm 11/25/17 10:50 Diprivan Administered 11/25/17 10:51 Dose 200 mg .ROUTE .K-MED ONE Physical Exam - Physical Exam General Appearance: alert, no apparent distress Respiratory: lungs clear Cardiac/Chest: regular rate, rhythm Abdomen: other (dimished BS) Skin: normal color, warm/dry Neuro/Psych: no motor/sensory deficits, alert, normal mood/affect, oriented x 3 ICD10 Worksheet Patient Problems: Problems Problem Status Onset Dehydration Acute Vomiting Acute Diarrhea Acute
--- NOTE | 2017-11-26 18:15 | SOAPPROG ---
SOAP Progress Note Assessment/Plan: Assessment: Asked to see for a 71-year-old female with possible free air. Patient is been sick for over 2 days with 0 vomiting and inability to eat. Came to the ER for evaluation where chest x-ray showed possible free air. Chest is clear/cor regular rhythm/abdomen soft and nontender with positive bowel sounds Impression is possible free air but her symptoms do not fit a perforated viscus. She is afebrile. White count was elevated 18,000 but she had been vomiting Plan: Check CT scan to rule out actual free air as this could be a loop of bowel over the liver or some other explanation 11/22/17 21:41 11/26/17 18:12 less distended with ng and wants to eat/ bx pending from duodenal mass/ abd soft and nontender/ afebrile may possibly need whipple or gastrojeunostomy will need TPN for improved nutrition pending bx results/ will check cea and ca19-9 Objective: Vital Signs Temp Pulse Resp BP Pulse Ox 36.7 C 98 20 103/56 L 91 L 11/26/17 15:59 11/26/17 15:59 11/26/17 15:59 11/26/17 15:59 11/26/17 15:59 Microbiology 11/26/17 03:40 - Final Sputum, Expectorated Sputum Culture - Final 11/25/17 14:14 Respiratory Panel (PCR) - Final Nasal, Sinus - Swab No Organism Detected Laboratory Results 11/26/17 12:33 11/26/17 04:30 11/25/17 11/26/17 11/27/17 05:59 05:59 05:59 Intake Total 0 4308 Output Total 1175 Balance 0 3133 ICD10 Worksheet Patient Problems: Problems Problem Status Onset Dehydration Acute Vomiting Acute Diarrhea Acute
[2017-11-26] MEDS: LORazepam 2 MG/ML INJ IVP PRN (21:13)
[2017-11-26] MEDS: ACETAMN/DIPHENHYDRAMINE 500/25MG TAB PO SCH (21:14)
[2017-11-26] MEDS: VENLAFAXINE XR 75 MG CAP PO SCH (21:14)
[2017-11-26] MEDS: buPROPion XL 150 MG TAB PO SCH (21:14)
[2017-11-27] MEDS: METOCLOPRAMIDE 10 MG/2 ML VIAL IVP SCH ×4 (00:44→18:51)
[2017-11-27] MEDS: POTASSIUM Cl (KCl) 10 MEQ in NS 100 ML IV SCH ×2 (00:44→22:26)
[2017-11-27] MEDS ORDERED: D5W 1/2 NS W/ 20 KCl/L 1,000 ML IV SCH (01:00)
[2017-11-27 06:01] LABS: PLATELET COUNT 251 10^3/uL (150-400)
[2017-11-27 06:09] LABS: INR 1.22 (0.83-1.16); PROTIME(PATIENT) 15.6 SEC (12.0-15.0)
[2017-11-27] MEDS ORDERED: POTASSIUM Cl (KCl) 100 ML IV SCH (07:46)
[2017-11-27] MEDS ORDERED: FUROSEMIDE 20 MG/2 ML VIAL IVP ONE (08:06)
--- NOTE | 2017-11-27 08:29 | PDINTPN ---
Annealing Furnace Operator Progress Note Assessment/Plan: Assessment/plan: * Aspiration pneumonia-continue current antibiotics -chest x-ray appears consistent with pulmonary edema with some infiltrate in the right lower lobe -will start Lasix 20 mg x1 dose * Respiratory-oxygen requirements up slightly -wean as tolerated * Esophageal tumor-awaiting pathology * Duodenal mass-awaiting pathology * Pancreatic insufficiency * Interval bowel syndrome * Hypernatremia-sodium down to 144 -will discontinue D5 half normal saline * VTE prophylaxis * Stress ulcer prophylaxis * Ambulation * Disposition-likely okay for floor Subjective: Resting comfortably. States minimally more dyspneic. No cough or chest pain. Objective: Vital Signs Temp Pulse Resp BP Pulse Ox 38.1 C 119 H 29 H 111/67 97 11/27/17 05:59 11/27/17 05:59 11/27/17 05:59 11/27/17 05:59 11/27/17 05:59 Microbiology 11/26/17 03:40 - Final Sputum, Expectorated Sputum Culture - Final Laboratory Results 11/27/17 05:42 11/27/17 05:42 11/26/17 11/27/17 11/28/17 05:59 05:59 05:59 Intake Total 4308 5008 Output Total 1425 1200 Balance 2883 3808 PT 15.6 SEC (12.0-15.0) H 11/27/17 05:42 INR 1.22 (0.83-1.16) H 11/27/17 05:42 Chest [id number] by myself. There is diffuse pulmonary edema in somewhat of a batwing distribution. There are patchy infiltrates in the right lower lobe - Time Spent With Patient Time Spent With Patient: 25 min of time spent with patient, over 1/2 involved with coordination of care or counseling Physical Exam - Physical Exam General Appearance: WD/WN, alert, no apparent distress EENT: PERRL/EOMI, normal ENT inspection Neck: non-tender Respiratory: rales (Bibasilar), No respiratory distress, No wheezing Cardiac/Chest: normal peripheral pulses, regular rate, rhythm, systolic murmur Peripheral Pulses: 2+: carotid (R), carotid (L), femoral (R), femoral (L), dorsalis-pedis (R), dorsalis-pedis (L) Abdomen: normal bowel sounds, non-tender, soft Pelvic Exam: deferred Rectal: deferred Skin: normal color, warm/dry Extremities: normal range of motion, non-tender, normal inspection, normal capillary refill Neuro/Psych: alert ICD10 Worksheet Patient Problems: Problems Problem Status Onset Dehydration Acute Vomiting Acute Diarrhea Acute
[2017-11-27] MEDS: PANTOPRAZOLE SODIUM 40 MG VIAL IVP SCH (08:53)
[2017-11-27] MEDS: PREGABALIN 100 MG CAP PO SCH (08:53)
[2017-11-27] MEDS: ENOXAPARIN 40 MG/0.4 ML SYR SC SCH (08:53)
[2017-11-27] MEDS: ERTAPENEM 1 GM VIAL IVP SCH (09:21)
--- NOTE | 2017-11-27 10:11 | SOAPPROG ---
SOAP Progress Note Assessment/Plan: Assessment: 71 yo with duodenal mass - awaiting pathology continue NG - throat spray for comfort S: discomfort at throat, otherwise better, complaining of urinary frequency O: Plan: 11/27/17 10:09 11/27/17 10:11 Objective: Vital Signs Temp Pulse Resp BP Pulse Ox 37.7 C 95 25 H 99/61 L 95 11/27/17 08:00 11/27/17 08:00 11/27/17 08:00 11/27/17 08:00 11/27/17 08:00 Microbiology 11/26/17 03:40 - Final Sputum, Expectorated Sputum Culture - Final Laboratory Results 11/27/17 05:42 11/27/17 05:42 11/26/17 11/27/17 11/28/17 05:59 05:59 05:59 Intake Total 4308 5008 Output Total 1425 1200 Balance 2883 3808 PT 15.6 SEC (12.0-15.0) H 11/27/17 05:42 INR 1.22 (0.83-1.16) H 11/27/17 05:42 Physical Exam - Physical Exam General Appearance: WD/WN, alert, no apparent distress EENT: PERRL/EOMI, No scleral icterus (R), No scleral icterus (L), No hearing deficit Respiratory: normal breath sounds, decreased breath sounds, No lungs clear, No accessory muscle use Cardiac/Chest: regular rate, rhythm Abdomen: non-tender, soft Skin: normal color, warm/dry ICD10 Worksheet Patient Problems: Problems Problem Status Onset Dehydration Acute Vomiting Acute Diarrhea Acute
[2017-11-27] MEDS ORDERED: VENLAFAXINE HCL 37.5 MG TAB TUBE SCH (10:45)
[2017-11-27] MEDS ORDERED: D10W 1,000 ML IV PRN (10:57)
[2017-11-27] MEDS ORDERED: LORazepam 1 MG TAB TUBE PRN (11:00)
--- NOTE | 2017-11-27 11:07 | HOSPPROG ---
Hospitalist Progress Note Assessment/Plan: Patient is a 71-year-old female who presented the emergency room with abdominal pain as well as nausea. #Aspiration Pneumonia -Ertapenem #acute Resp Failure, likely to above, resolving -E/O of pulm edema today, will get Lasix x 1 #Possible Sepsis: -Blood cultures are pending, original set is NGTD #Gastric Outlet obstruction vs Gastroparesis. Retained Barium after UPGI series -NPO #Esophogeal and Duodenal Tumors -Biopsy results are pending #Questionable free air on XR, not seen on CT -Surgery is following -Does not have a surgical abdomen #Hypernatremia, likely due to volume depletion: -much improved with 09/14 NS #Anemia, source unclear -s/p 1 unit PRBC on 11/26 #Acute renal failure (resolved) # hypokalemia -on electrolyte protocol # tobacco dependence, on exam this morning does not have active wheezing. #pancreatic insufficiency -takes pancreatic enzymes, on hold while NPO # hypercalcemia and hyperphosphatemia likely due to dehydration -resolved Plan: After receiving a unit of blood, her BP is significantly stable. Na has improved. Hypoxemia is worse and CXR shows pulm edema. She will get a one time dose of Lasix. She is still NPO. TPN will be started today. Holding maintenance fluids given volume overload and as TPN to start today. Cont Ertapenem Await path Med Surg Status d/w ICU team. d/w pharmacy Subjective: feels better. O2 needs have increased. Objective: Vital Signs Temp Pulse Resp BP Pulse Ox 37.7 C 95 25 H 99/61 L 95 11/27/17 08:00 11/27/17 08:00 11/27/17 08:00 11/27/17 08:00 11/27/17 08:00 Microbiology 11/26/17 03:40 - Final Sputum, Expectorated Sputum Culture - Final Laboratory Results 11/27/17 05:42 11/27/17 05:42 11/26/17 11/27/17 11/28/17 05:59 05:59 05:59 Intake Total 4308 5008 Output Total 1425 1200 Balance 2883 3808 PT 15.6 SEC (12.0-15.0) H 11/27/17 05:42 INR 1.22 (0.83-1.16) H 11/27/17 05:42 - Time Spent With Patient Time Spent with Patient: greater than 35 minutes Time Spent with Patient: Greater than 35 minutes spent on this patients care, greater than 50% of time spent counseling, educating, and coordinating care regarding the above mentioned plan. - Physical Exam Constitutional: no apparent distress Eyes: PERRL Ears, Nose, Mouth, Throat: moist mucous membranes, hearing normal Cardiovascular: regular rate and rhythym, No edema Respiratory: no respiratory distress, reduced air movement, No clear to auscultation Gastrointestinal: normoactive bowel sounds, soft, non-tender abdomen Skin: warm Musculoskeletal: generalized weakness Neurologic: AAOx3 Psychiatric: interacting appropriately, not anxious, not encephalopathic, thought process linear Lymph, Heme, Immunologic: No petechiae ICD10 Worksheet Patient Problems: Problems Problem Status Onset Dehydration Acute Vomiting Acute Diarrhea Acute
[2017-11-27] MEDS ORDERED: POTASSIUM Cl (KCl) 50 ML IV ONE (11:11)
[2017-11-27] MEDS: buPROPion 75 MG TAB TUBE SCH (11:20)
[2017-11-27] MEDS ORDERED: GADOBUTROL 10 ML VIAL IVP ONE (12:42)
[2017-11-27] MEDS: LORazepam 2 MG/ML INJ IVP PRN ×2 (13:07→20:05)
--- NOTE | 2017-11-27 13:32 | PDCONSULT ---
Special Deputy Sheriff Note: Brief Note. Patient not examined (off floor for xray). Chart reviewed. Impression/Recs: 1. Gastric Outlet obstruction - Await imaging and biopsy results to guide care. - will follow
[2017-11-27] MEDS ORDERED: LIDOCAINE 1% 300 MG/30 ML SDV ONE (15:35)
[2017-11-27] MEDS ORDERED: PREGABALIN 100 MG CAP TUBE SCH (16:00)
[2017-11-27] MEDS: PHENOL 177 ML THROAT SPRAY PO PRN ×2 (18:05→20:06)
[2017-11-27] MEDS ORDERED: NS IV ONE (19:00)
[2017-11-27] MEDS ORDERED: K PHOS IV ONE (19:00)
[2017-11-27] MEDS: TPN 1 EA BAG IV SCH (20:44)
[2017-11-27] MEDS ORDERED: ACETAMN/DIPHENHYDRAMINE 500/25MG TAB TUBE SCH (21:00)
[2017-11-27] MEDS ORDERED: SODIUM CL NASAL 45 ML BTL ONE (21:42)
[2017-11-27] MEDS: HYDROmorphONE/DILAUDID 2 MG/ML INJ IVP PRN (21:46)
[2017-11-28] MEDS: POTASSIUM Cl (KCl) 10 MEQ in NS 100 ML IV SCH ×2 (00:32→01:11)
[2017-11-28] MEDS: METOCLOPRAMIDE 10 MG/2 ML VIAL IVP SCH ×5 (00:41→17:39)
[2017-11-28] MEDS: HYDROmorphONE/DILAUDID 2 MG/ML INJ IVP PRN ×6 (04:43→21:59)
[2017-11-28 05:22] LABS: PLATELET COUNT 260 10^3/uL (150-400)
[2017-11-28] MEDS ORDERED: NS 1,000 ML IV SCH (05:30)
[2017-11-28] MEDS ORDERED: SODIUM CL NASAL 45 ML BTL EACHNARE PRN (05:30)
[2017-11-28 05:34] LABS: INR 1.14 (0.83-1.16); PROTIME(PATIENT) 14.8 SEC (12.0-15.0)
[2017-11-28] MEDS ORDERED: K PHOS 10 MMOL in D5W 250 ML IV ONE (07:30)
[2017-11-28] MEDS ORDERED: LANSOPRAZOLE SUSP 30MG/10ML UDSYR (Adult) TUBE SCH (09:00)
[2017-11-28] MEDS: ENOXAPARIN 40 MG/0.4 ML SYR SC SCH (09:11)
[2017-11-28] MEDS: PANTOPRAZOLE SODIUM 40 MG VIAL IVP SCH ×2 (09:11→20:49)
[2017-11-28] MEDS: ERTAPENEM 1 GM VIAL IVP SCH (09:11)
[2017-11-28] MEDS: LORazepam 2 MG/ML INJ IVP PRN ×3 (11:00→20:30)
--- NOTE | 2017-11-28 11:22 | PDINTPN ---
Cell Tender Progress Note Assessment/Plan: Assessment/plan: * Aspiration pneumonia-continue current antibiotics -chest x-ray appears consistent with pulmonary edema with some infiltrate in the right lower lobe -will start Lasix 20 mg x1 dose * Respiratory-oxygen requirements up slightly -wean as tolerated * Esophageal tumor-awaiting pathology * Duodenal mass/gastric outlet obstruction-awaiting pathology * Pancreatic insufficiency * Interval bowel syndrome * Hypernatremia-sodium down to 144 -will discontinue D5 half normal saline * VTE prophylaxis * Stress ulcer prophylaxis * Ambulation Subjective: Sitting up in chair. Pain is tolerable. Denies any breathlessness. Still on supplemental oxygen. Objective: Vital Signs Temp Pulse Resp BP Pulse Ox 37 C 116 H 22 H 105/88 H 92 11/28/17 04:00 11/28/17 04:00 11/28/17 04:00 11/28/17 04:00 11/28/17 04:00 Laboratory Results 11/28/17 05:00 11/28/17 05:00 11/27/17 11/28/17 11/29/17 05:59 05:59 05:59 Intake Total 5008 2063 Output Total 1200 900 150 Balance 3808 1163 -150 PT 14.8 SEC (12.0-15.0) 11/28/17 05:00 INR 1.14 (0.83-1.16) 11/28/17 05:00 - Time Spent With Patient Time Spent With Patient: 25 min of time spent with patient, over 1/2 involved with coordination of care or counseling Physical Exam - Physical Exam General Appearance: alert, mild distress EENT: PERRL/EOMI, normal ENT inspection Neck: non-tender, full range of motion, supple, normal inspection Respiratory: crackles (Bibasilar), No respiratory distress, No wheezing Cardiac/Chest: normal peripheral pulses, regular rate, rhythm, systolic murmur Abdomen: soft, No normal bowel sounds (Diminished), No non-tender Pelvic Exam: deferred Rectal: deferred Skin: normal color, warm/dry Extremities: normal range of motion, non-tender, normal inspection, normal capillary refill Neuro/Psych: no motor/sensory deficits, alert, normal mood/affect, oriented x 3 ICD10 Worksheet Patient Problems: Problems Problem Status Onset Dehydration Acute Vomiting Acute Diarrhea Acute
--- NOTE | 2017-11-28 12:11 | SOAPPROG ---
SOAP Progress Note Assessment/Plan: Assessment: 71 yo with duodenal mass - awaiting pathology continue NG - throat spray for comfort S: Chloroseptic helping Plan: 11/27/17 10:09 11/27/17 10:11 11/28/17 12:07 Objective: Vital Signs Temp Pulse Resp BP Pulse Ox 37 C 116 H 22 H 105/88 H 92 11/28/17 04:00 11/28/17 04:00 11/28/17 04:00 11/28/17 04:00 11/28/17 04:00 Laboratory Results 11/28/17 05:00 11/28/17 05:00 11/27/17 11/28/17 11/29/17 05:59 05:59 05:59 Intake Total 5008 2063 Output Total 1200 900 150 Balance 3808 1163 -150 PT 14.8 SEC (12.0-15.0) 11/28/17 05:00 INR 1.14 (0.83-1.16) 11/28/17 05:00 Physical Exam - Physical Exam General Appearance: WD/WN, alert, no apparent distress EENT: PERRL/EOMI, other (NG tube), No scleral icterus (R), No scleral icterus (L ), No hearing deficit Respiratory: lungs clear, normal breath sounds Cardiac/Chest: regular rate, rhythm Abdomen: normal bowel sounds, non-tender, soft Skin: normal color, warm/dry Extremities: normal range of motion ICD10 Worksheet Patient Problems: Problems Problem Status Onset Dehydration Acute Vomiting Acute Diarrhea Acute
[2017-11-28] MEDS ORDERED: POTASSIUM Cl (KCl) 50 ML IV SCH (12:45)
[2017-11-28] MEDS ORDERED: POTASSIUM Cl (KCl) 50 ML IV ONE ×2 (13:00→21:09)
--- NOTE | 2017-11-28 16:42 | HOSPPROG ---
Hospitalist Progress Note Assessment/Plan: Patient is a 71-year-old female who presented the emergency room with abdominal pain as well as nausea. #Aspiration Pneumonia -Ertapenem #acute Resp Failure, likely to above, resolving #Possible Sepsis: -Blood cultures NGTD #Gastric Outlet obstruction vs Gastroparesis. Retained Barium after UPGI series -NPO -GI following #Esophogeal and Duodenal Tumors -Biopsy results are pending #Questionable free air on XR, not seen on CT -Surgery is following -Does not have a surgical abdomen #Hypernatremia, likely due to volume depletion: -resolved #Anemia, source unclear -s/p 1 unit PRBC on 11/26 -Has decreased again today, + blood in stool, ? GIB, will start PPI IV BID -recheck h/h tomorrow #Acute renal failure (resolved) # hypokalemia -on electrolyte protocol # tobacco dependence, on exam this morning does not have active wheezing. #pancreatic insufficiency -takes pancreatic enzymes, on hold while NPO # hypercalcemia and hyperphosphatemia likely due to dehydration -resolved #Malnutrition -TPN has been started Plan: Cont Ertapenem Await path TPN + NS PPI Monitor H/H tomorrow Diet per GI Med Surg Status d/w ICU team. d/w pharmacy Subjective: reports she feels better. Still needing supplemental O2. Biopsies are pending. Objective: Vital Signs Temp Pulse Resp BP Pulse Ox 36.7 C 103 H 20 122/63 H 92 11/28/17 16:00 11/28/17 16:00 11/28/17 16:00 11/28/17 16:00 11/28/17 16:00 Laboratory Results 11/28/17 05:00 11/28/17 05:00 11/27/17 11/28/17 11/29/17 05:59 05:59 05:59 Intake Total 5008 2063 Output Total 1200 900 150 Balance 3808 1163 -150 PT 14.8 SEC (12.0-15.0) 11/28/17 05:00 INR 1.14 (0.83-1.16) 11/28/17 05:00 - Physical Exam Constitutional: no apparent distress Eyes: PERRL, EOMI Ears, Nose, Mouth, Throat: moist mucous membranes Cardiovascular: regular rate and rhythym, No edema Respiratory: no respiratory distress, No reduced air movement Gastrointestinal: No tenderness, No distension Skin: warm Musculoskeletal: generalized weakness Neurologic: AAOx3 Psychiatric: interacting appropriately, not anxious, not encephalopathic Lymph, Heme, Immunologic: No ecchymoses ICD10 Worksheet Patient Problems: Problems Problem Status Onset Dehydration Acute Vomiting Acute Diarrhea Acute
[2017-11-28] MEDS: TPN 1 EA BAG IV SCH (20:31)
[2017-11-28] MEDS ORDERED: POTASSIUM CL 10 MEQ TAB PO ONE (21:06)
[2017-11-29] MEDS: LORazepam 2 MG/ML INJ IVP PRN ×2 (00:49→06:48)
[2017-11-29] MEDS: HYDROmorphONE/DILAUDID 2 MG/ML INJ IVP PRN ×2 (00:50→07:59)
[2017-11-29] MEDS: METOCLOPRAMIDE 10 MG/2 ML VIAL IVP SCH ×2 (00:54→06:06)
[2017-11-29 06:19] LABS: PLATELET COUNT 253 10^3/uL (150-400)
[2017-11-29 06:25] LABS: INR 1.07 (0.83-1.16); PROTIME(PATIENT) 14.1 SEC (12.0-15.0)
--- NOTE | 2017-11-29 09:54 | SOAPPROG ---
SOAP Progress Note Assessment/Plan: Assessment/Plan: 71 Y F diarrhea last week, N/V over weekend. Free air on CT. Nonsurgical abdomen on exam. Distended stomach, poor emptying. 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 Aspiration PNA. Awaiting pathology. CA 19-9 >4000. Continue NGT. Appreciate medicine and pulm input. On Invanz for aspiration PNA. Will d/w Dr. Navarrete. S: "I can't breath." O: alert, nad ng in place no jaundice, mmm +mild wob rrr abd softly distended, NT 11/29/17 09:52 Objective: Vital Signs Temp Pulse Resp BP Pulse Ox 37.3 C 113 H 21 H 106/41 L 97 11/29/17 03:57 11/29/17 03:57 11/29/17 03:57 11/29/17 03:57 11/29/17 03:57 Laboratory Results 11/29/17 06:05 11/29/17 06:05 11/28/17 11/29/17 11/30/17 05:59 05:59 05:59 Intake Total 2063 2418 Output Total 900 1000 400 Balance 1163 1418 -400 PT 14.1 SEC (12.0-15.0) 11/29/17 06:05 INR 1.07 (0.83-1.16) 11/29/17 06:05 ICD10 Worksheet Patient Problems: Problems Problem Status Onset Dehydration Acute Vomiting Acute Diarrhea Acute
--- NOTE | 2017-11-29 10:15 | HOSPPROG ---
Hospitalist Progress Note Assessment/Plan: # GOO d/t doudenal mass - pathology of duodenal and esophageal masses pending; CA19-9 elevated - cont NGT # FEN - TPN; lytes better # acute hypoxic resp failure - diffuse infiltrates on CXR - aspiration pneumonia - invanz - possible pulm edema - lasix yesterday, check CXR - PE possible but hypoxia explained by CXR - recheck CXR today # possible sepsis (leuk, tachy, asp pna) - check BCx again - add empiric vanc with rising WBC # anemia - trending down, possible GIB from tumors - protonix IV # chronic pain - restart tramadol # hyperNa - resolved # MADAI - - resolved # tobacco use # pancreatic insufficiency # depr/anxiety - restart wellbutrin, effexor; cont ativan IV prn 35 minutes of floor CC time; critically ill with severe respiratory failure, may need intubation; move to ICU status Subjective: still very SOB; c/o R sided abd pain; no CP Objective: Vital Signs Temp Pulse Resp BP Pulse Ox 37.3 C 113 H 21 H 106/41 L 97 11/29/17 03:57 11/29/17 03:57 11/29/17 03:57 11/29/17 03:57 11/29/17 03:57 Laboratory Results 11/29/17 06:05 11/29/17 06:05 11/28/17 11/29/17 11/30/17 05:59 05:59 05:59 Intake Total 2063 2418 Output Total 900 1000 400 Balance 1163 1418 -400 PT 14.1 SEC (12.0-15.0) 11/29/17 06:05 INR 1.07 (0.83-1.16) 11/29/17 06:05 - Physical Exam Constitutional: uncomfortable Ears, Nose, Mouth, Throat: other (NG tube) Cardiovascular: no murmur, rub, or gallop, tachycardia Respiratory: inspiratory crackles (bilat bases), respiratory distress (mod), No expiratory wheeze, No bronchial breath sounds Gastrointestinal: soft, non-tender abdomen, no palpable masses ICD10 Worksheet Patient Problems: Problems Problem Status Onset Diarrhea Acute Vomiting Acute Dehydration Acute
[2017-11-29] MEDS: ENOXAPARIN 40 MG/0.4 ML SYR SC SCH (10:30)
[2017-11-29] MEDS: PANTOPRAZOLE SODIUM 40 MG VIAL IVP SCH ×2 (10:30→20:43)
[2017-11-29] MEDS: ERTAPENEM 1 GM VIAL IVP SCH (10:30)
[2017-11-29] MEDS: VANCOMYCIN 1 GM in NS 250 ML IV SCH ×2 (12:26→23:45)
--- NOTE | 2017-11-29 12:31 | PDINTPN ---
Farmworker Progress Note Assessment/Plan: Assessment/plan: 71 F admitted 11/23 with intractable N/V, complicated by aspiration event 11/24 following esophagram and subsequently found to have esopageal and duodenal masses on EGD (path pending). She had a history of IBS, pancreatic insufficiency. A CT abdo/pelvis revealed a distended, fluid-filled stomach but no masses, but an EGD showed a large mass at the GE junction and a second mass at the duodenum and biopsies were taken. No other masses were noted on an abdominal MRI 11/27. Her pxygen requirement has been creeping up the last feww days as well, up to 10-15 lpm simple mask associated with a sinus tachycardia. * Esophageal/duodenal masses- path remains pending and an NGT is in place. No further aspiration events noted. * Aspiration pneumonia- her increasing WBC is concerning and there are no systemic steroids. She is on Invanz currently and cultures have been unrevealing. I owuld add empiric vanco for now and consider ID if her wbc continues to rise. I think she is at high risk for bronchoscopy but would consider it if ID requets. Her CXR 11/29 actually looks slightly better to me, but does have diffuse infiltrates. Steroids have no clear role. She may benefit from Vapotherm for comfort. Holding lasix for now, but move status to ICU for closer observation. Subjective: Breathing feels OK, anxious to "get it over with" Objective: Vital Signs Temp Pulse Resp BP Pulse Ox 37.3 C 113 H 21 H 106/41 L 97 11/29/17 03:57 11/29/17 03:57 11/29/17 03:57 11/29/17 03:57 11/29/17 03:57 Laboratory Results 11/29/17 06:05 11/29/17 06:05 11/28/17 11/29/17 11/30/17 05:59 05:59 05:59 Intake Total 2063 2418 Output Total 900 1000 400 Balance 1163 1418 -400 PT 14.1 SEC (12.0-15.0) 11/29/17 06:05 INR 1.07 (0.83-1.16) 11/29/17 06:05 Physical Exam - Physical Exam General Appearance: alert, no apparent distress EENT: PERRL/EOMI Neck: supple Respiratory: decreased breath sounds, crackles, No respiratory distress, No accessory muscle use Cardiac/Chest: regular rate, rhythm, No edema Abdomen: non-tender, soft, No distended Skin: normal color, warm/dry, No cyanosis Lymphatic: no adenopathy Extremities: No pedal edema Neuro/Psych: alert, normal mood/affect ICD10 Worksheet Patient Problems: Problems Problem Status Onset Dehydration Acute Vomiting Acute Diarrhea Acute
[2017-11-29] MEDS: traMADol 50 MG TAB TUBE PRN (15:51)
[2017-11-29] MEDS: PREGABALIN 100 MG CAP TUBE SCH ×2 (15:51→21:00)
[2017-11-29] MEDS: buPROPion 75 MG TAB TUBE SCH ×3 (15:52→20:43)
[2017-11-29] MEDS: VENLAFAXINE HCL 37.5 MG TAB TUBE SCH ×2 (16:01→20:44)
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
--- NOTE | 2017-11-29 17:50 | SOAPPROG ---
SOAP Progress Note Assessment/Plan: Assessment: Asked to see for a 71-year-old female with possible free air. Patient is been sick for over 2 days with 0 vomiting and inability to eat. Came to the ER for evaluation where chest x-ray showed possible free air. Chest is clear/cor regular rhythm/abdomen soft and nontender with positive bowel sounds Impression is possible free air but her symptoms do not fit a perforated viscus. She is afebrile. 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/MRI SHOWS NO PANCREATIC MASS AND NO SIGNIFICANT DUCTAL DILATATION IF PATIENT CAN BECOME MEDICALLY STABLE FROM PULMONARY STANDPOINT HE MAY BE A GOOD CANDIDATE FOR PANCREATICODUODENECTOMY/LABS PENDING Objective: Vital Signs Temp Pulse Resp BP Pulse Ox 36.9 C 101 H 23 H 106/56 L 95 11/29/17 15:00 11/29/17 16:00 11/29/17 16:00 11/29/17 16:00 11/29/17 16:00 Laboratory Results 11/29/17 06:05 11/29/17 06:05 11/28/17 11/29/17 11/30/17 05:59 05:59 05:59 Intake Total 2063 2418 Output Total 900 1000 800 Balance 1163 1418 -800 PT 14.1 SEC (12.0-15.0) 11/29/17 06:05 INR 1.07 (0.83-1.16) 11/29/17 06:05 ICD10 Worksheet Patient Problems: Problems Problem Status Onset Dehydration Acute Vomiting Acute Diarrhea Acute
--- NOTE | 2017-11-29 17:53 | SOAPPROG ---
SOAP Progress Note Assessment/Plan: Assessment: Asked to see for a 71-year-old female with possible free air. Patient is been sick for over 2 days with 0 vomiting and inability to eat. Came to the ER for evaluation where chest x-ray showed possible free air. Chest is clear/cor regular rhythm/abdomen soft and nontender with positive bowel sounds Impression is possible free air but her symptoms do not fit a perforated viscus. She is afebrile. 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/MRI SHOWS NO PANCREATIC MASS AND NO SIGNIFICANT DUCTAL DILATATION IF PATIENT CAN BECOME MEDICALLY STABLE FROM PULMONARY STANDPOINT HE MAY BE A GOOD CANDIDATE FOR PANCREATICODUODENECTOMY/LABS PENDING 11/29/17 17:52 CA 19-9 IS OVER 4000/CEA IS 4.6/CONSISTENT WITH PANCREATIC CANCER/CA 19 9 MAY SUGGEST METASTATIC DISEASE DESPITE NO EVIDENCE ON CT OR MRI Objective: Vital Signs Temp Pulse Resp BP Pulse Ox 36.9 C 101 H 23 H 106/56 L 95 11/29/17 15:00 11/29/17 16:00 11/29/17 16:00 11/29/17 16:00 11/29/17 16:00 Laboratory Results 11/29/17 06:05 11/29/17 06:05 11/28/17 11/29/17 11/30/17 05:59 05:59 05:59 Intake Total 2063 2418 Output Total 900 1000 800 Balance 1163 1418 -800 PT 14.1 SEC (12.0-15.0) 11/29/17 06:05 INR 1.07 (0.83-1.16) 11/29/17 06:05 ICD10 Worksheet Patient Problems: Problems Problem Status Onset Dehydration Acute Vomiting Acute Diarrhea Acute
[2017-11-29] MEDS: ACETYLCYSTEINE 10% IH/PO 4 ML VIAL IH SCH (18:06)
[2017-11-29] MEDS: ALBUTEROL 3 ML DEYVIAL IH SCH (18:06)
[2017-11-29] MEDS: NS 1,000 ML IV SCH ×2 (19:29→23:46)
[2017-11-29] MEDS: TPN 1 EA BAG IV SCH (20:43)
[2017-11-29] MEDS ORDERED: POTASSIUM CL 20 MEQ/15 ML UDCUP TUBE ONE (21:00)
[2017-11-30] MEDS: ALBUTEROL 3 ML DEYVIAL IH SCH ×5 (00:19→23:21)
[2017-11-30] MEDS: ACETYLCYSTEINE 10% IH/PO 4 ML VIAL IH SCH ×5 (00:20→23:21)
[2017-11-30] MEDS: ACETAMN/DIPHENHYDRAMINE 500/25MG TAB PO PRN ×2 (01:39→21:08)
[2017-11-30] MEDS ORDERED: NS BOLUS 500 ML IV ONE (04:00)
[2017-11-30 05:34] LABS: PLATELET COUNT 221 10^3/uL (150-400)
[2017-11-30 05:43] LABS: INR 1.21 (0.83-1.16); PROTIME(PATIENT) 15.5 SEC (12.0-15.0)
[2017-11-30] MEDS ORDERED: HYDROmorphone HCL/NS 0.5 MG/ML SYR IVP PRN (08:00)
--- NOTE | 2017-11-30 08:43 | ECHO ---
[email or web address] [address] [address] Main: [phone] Fax: Transthoracic Echocardiogram Name: OLAMIDE MA MR#: [id number] Study Date: 11/29/2017 Study Time: 02:21 PM Date of : 1945 Age: 71 year(s) Height: 167.6 cm (66 in.) Weight: 73.03 kg (161 lb.) BSA: 1.82 m2 Gender: Female Examination: Echo Indication: Hypoxia/Tachycardia Image Quality: Contrast: Requested by: Kelby Escalante BP: 119 mmHg/58 mmHg Heart Rate: Rhythm: Tachycardia Indication: Hypoxia/Tachycardia Procedure Staff Thermoplastic Technician: Juan Jose Mariscal RDCS Reading Physician: Stanley Soto MD Requesting Provider: Thermoplastic Technician: Reading Physician: Requesting Provider: Conclusions: Normal size left ventricle. Normal global systolic LV function. Normal RV function. The left atrium is normal in size. The right atrium is normal in size. The pulmonary artery pressure is mildly increased. No pericardial effusion. Measurements: Chambers Valvular Assessment AV/MV Valvular Assessment TV/PV Normal Normal Normal Name Value Range Name Value Range Name Value Range Ao Maryuri (MM): 3.3 cm (2.2 cm-3.7 AV Vmax: 1.83 m/s (1 m/s-1.7 TR Vmax: 3.14 mm/s ( - ) cm) m/s) TR PGmax: 39 mmHg ( - ) IVSd (2D): 1.0 cm (0.6 cm-1.1 AV maxP mmHg ( - ) syst. PAP: 44 mmHg ( - ) cm) LVOT Vmax: 1.20 m/s (0.7 m/s-1.1 PV Vmax: 1.57 m/s (0.6 m/s-0.9 LVDd (2D): 3.5 cm (3.9 cm-5.3 m/s) m/s) cm) MV E Vmax: 1.09 m/s ( - ) PV PGmax: 10 mmHg ( - ) LVDs (2D): 2.4 cm (2.1 cm-4 MV A Vmax: 0.78 m/s ( - ) cm) MV E/A: 1.40 ( - ) LVPWd (2D): 0.9 cm ( - ) LVEF (2D): 62 (>=54 %) Continued Measurements: Chambers Valvular Assessment AV/MV Valvular Assessment TV/PV Patient: OLAMIDE MA Study Date: 11/29/2017 Page 1 of 2 02:21 PM Name Value Name Value Name Value LADs Lon.8 cm MV E' Septal: 0.09 m/s CVP (est.): 5 mmHg LA Area: 15.9 cm2 MV E/E' Septal: 12.70 LA Volume: 43 ml MV E/E' Lateral: 8.40 LA Volume Index: 23.6 ml/m2 Findings: Left Ventricle: Normal size left ventricle. No LV hypertrophy. Normal global systolic LV function. EF is 62 %. No regional wall motion abnormality. Normal diastolic LV function. Right Ventricle: Normal size right ventricle. Normal RV function. Left Atrium: The left atrium is normal in size. Right Atrium: The right atrium is normal in size. Mitral Valve: The mitral valve is normal in appearance and function. Aortic Valve: The aortic valve is normal in appearance and function. Tricuspid Valve: Trivial tricuspid valve regurgitation. The pulmonary artery pressure is mildly increased. Pulmonary pressures most likely underestimated due to minimal TR. Pulmonic Valve: The pulmonic valve is normal in appearance and function. Aorta: The aorta is normal. Pericardium: No pericardial effusion. (No Signature Object) Patient: OLAMIDE MA Study Date: 11/29/2017 Page 2 of 2 02:21 PM [id number]
[2017-11-30] MEDS: ERTAPENEM 1 GM VIAL IVP SCH (09:05)
[2017-11-30] MEDS: ENOXAPARIN 40 MG/0.4 ML SYR SC SCH (09:05)
[2017-11-30] MEDS: PANTOPRAZOLE SODIUM 40 MG VIAL IVP SCH ×2 (09:05→21:08)
[2017-11-30] MEDS: buPROPion 75 MG TAB TUBE SCH ×2 (09:05→21:07)
[2017-11-30] MEDS: PREGABALIN 100 MG CAP TUBE SCH ×3 (09:05→21:08)
[2017-11-30] MEDS: VENLAFAXINE HCL 37.5 MG TAB TUBE SCH ×2 (09:06→21:08)
[2017-11-30] MEDS ORDERED: FUROSEMIDE 20 MG/2 ML VIAL IVP ONE ×2 (12:04→15:00)
--- NOTE | 2017-11-30 12:07 | HOSPPROG ---
Hospitalist Progress Note Assessment/Plan: # GOO d/t duodenal mass - cont NGT # likely pancreatic cancer - no mets so far identified, but ca-19-9 very high - check CT chest today - may be Whipple candidate if no mets and pulm status improves - onc consult soon # anemia - likely slow GI loss - transfuse 2U PRBC today, lasix between units # FEN - TPN; lytes better # acute hypoxic resp failure - diffuse infiltrates on CXR - aspiration pneumonia - invanz change to unasyn today - possible pulm edema - has received lasix - PE possible but hypoxia explained by CXR # possible sepsis (leuk, tachy, asp pna) - WBC better today - check BCx again - cont empiric vanc # anemia - trending down, likely GIB from tumors - protonix IV # chronic pain - restart tramadol # hyperNa - resolved # MADAI - - resolved # tobacco use # pancreatic insufficiency # depr/anxiety - restart wellbutrin, effexor; cont ativan IV prn Subjective: feels better than yesterday overall; O2 needs lower Objective: Vital Signs Temp Pulse Resp BP Pulse Ox 36.6 C 102 H 40 H 90/42 L 100 11/29/17 21:00 11/30/17 07:00 11/30/17 07:00 11/30/17 07:00 11/30/17 06:48 Laboratory Results 11/30/17 05:20 11/30/17 05:20 11/29/17 11/30/17 12/01/17 05:59 05:59 05:59 Intake Total 2418 3383 Output Total 1000 1650 Balance 1418 1733 PT 15.5 SEC (12.0-15.0) H 11/30/17 05:20 INR 1.21 (0.83-1.16) H 11/30/17 05:20 high risk - Physical Exam Constitutional: no apparent distress, appears nourished Cardiovascular: regular rate and rhythym, no murmur, rub, or gallop Respiratory: no respiratory distress, inspiratory crackles (mild) Gastrointestinal: normoactive bowel sounds, soft, non-tender abdomen, no palpable masses ICD10 Worksheet Patient Problems: Problems Problem Status Onset Diarrhea Acute Vomiting Acute Dehydration Acute
[2017-11-30] MEDS ORDERED: IOPAMIDOL (ISOVUE 370) 100 ML BTL IV ONE (12:36)
--- NOTE | 2017-11-30 13:08 | SOAPPROG ---
SOAP Progress Note Assessment/Plan: Assessment: Asked to see for a 71-year-old female with possible free air. Patient is been sick for over 2 days with 0 vomiting and inability to eat. Came to the ER for evaluation where chest x-ray showed possible free air. Chest is clear/cor regular rhythm/abdomen soft and nontender with positive bowel sounds Impression is possible free air but her symptoms do not fit a perforated viscus. She is afebrile. 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/MRI SHOWS NO PANCREATIC MASS AND NO SIGNIFICANT DUCTAL DILATATION IF PATIENT CAN BECOME MEDICALLY STABLE FROM PULMONARY STANDPOINT HE MAY BE A GOOD CANDIDATE FOR PANCREATICODUODENECTOMY/LABS PENDING 11/29/17 17:52 CA 19-9 IS OVER 4000/CEA IS 4.6/CONSISTENT WITH PANCREATIC CANCER/CA 19 9 MAY SUGGEST METASTATIC DISEASE DESPITE NO EVIDENCE ON CT OR MRI 11/30/17 13:04 much more alert and active today/ cxr improved/ abd soft/ minimal ng out/ + bm and flatus/ hungry may need chest ct or pet to ro mets prior to surgery chest still some rhonchi, cor rr, abd soft, much less distended and less tympanitic eventual whipple if no mets found/ if mets will need gastrojejunostomy Objective: Vital Signs Temp Pulse Resp BP Pulse Ox 36.6 C 102 H 40 H 90/42 L 100 11/29/17 21:00 11/30/17 07:00 11/30/17 07:00 11/30/17 07:00 11/30/17 06:48 Laboratory Results 11/30/17 05:20 11/30/17 05:20 11/29/17 11/30/17 12/01/17 05:59 05:59 05:59 Intake Total 2418 3383 Output Total 1000 1650 Balance 1418 1733 PT 15.5 SEC (12.0-15.0) H 11/30/17 05:20 INR 1.21 (0.83-1.16) H 11/30/17 05:20 ICD10 Worksheet Patient Problems: Problems Problem Status Onset Dehydration Acute Vomiting Acute Diarrhea Acute
--- NOTE | 2017-11-30 13:52 | PDINTPN ---
Paradichlorobenzene Tender Progress Note Assessment/Plan: Assessment/plan: 71 F admitted 11/23 with intractable N/V, complicated by aspiration event 11/24 following esophagram and subsequently found to have esopageal and duodenal masses on EGD (path pending). She had a history of IBS, pancreatic insufficiency. A CT abdo/pelvis revealed a distended, fluid-filled stomach but no masses, but an EGD showed a large mass at the GE junction and a second mass at the duodenum and biopsies were taken. No other masses were noted on an abdominal MRI 11/27. Her pxygen requirement has been creeping up the last feww days as well, up to 10-15 lpm simple mask associated with a sinus tachycardia. 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 Considering surgery, but await results of chest CT looking for mets and improvement in clinical status. Oncology involvement? * Aspiration pneumonia- WBC reduced after adding vanco 11/29. Continue to observe. I think she is at high risk for bronchoscopy but would consider it if ID requests. Her CXR 11/29 actually looks slightly better to me, but does have diffuse infiltrates. Steroids have no clear role. She may benefit from Vapotherm for comfort. 11/30/17 13:50 Subjective: Feels better this am, though slightly confused Objective: Vital Signs Temp Pulse Resp BP Pulse Ox 36.6 C 102 H 40 H 90/42 L 89 L 11/29/17 21:00 11/30/17 07:00 11/30/17 07:00 11/30/17 07:00 11/30/17 12:13 Laboratory Results 11/30/17 05:20 11/30/17 05:20 11/29/17 11/30/17 12/01/17 05:59 05:59 05:59 Intake Total 2418 3383 Output Total 1000 1650 Balance 1418 1733 PT 15.5 SEC (12.0-15.0) H 11/30/17 05:20 INR 1.21 (0.83-1.16) H 11/30/17 05:20 Physical Exam - Physical Exam General Appearance: alert, no apparent distress EENT: PERRL/EOMI Neck: supple Respiratory: decreased breath sounds, crackles, No respiratory distress, No accessory muscle use Cardiac/Chest: regular rate, rhythm, No edema Abdomen: non-tender, soft, No distended Skin: normal color, warm/dry, No cyanosis Lymphatic: no adenopathy Extremities: No pedal edema Neuro/Psych: alert, normal mood/affect, cognition abnormalities ICD10 Worksheet Patient Problems: Problems Problem Status Onset Dehydration Acute Vomiting Acute Diarrhea Acute
[2017-11-30] MEDS: VANCOMYCIN 1 GM in NS 250 ML IV SCH (14:43)
[2017-11-30] MEDS ORDERED: POTASSIUM Cl (KCl) 50 ML IV ONE (20:12)
[2017-11-30] MEDS: TPN 1 EA BAG IV SCH (21:08)
[2017-11-30] MEDS: NS 1,000 ML IV SCH (21:26)
[2017-12-01] MEDS ORDERED: AMPICILLIN/SULBACTAM 3 GM in NS 100 ML IV SCH
[2017-12-01] MEDS ORDERED: NS 500 ML IV ONE (00:13)
[2017-12-01] MEDS: AMPICILLIN/SULBACTAM 3 GM VIAL IV SCH ×5 (00:25→23:16)
[2017-12-01] MEDS: VANCOMYCIN 1.25 GM in NS 250 ML IV SCH ×2 (02:08→14:22)
[2017-12-01] MEDS: VANCOMYCIN 1 GM in NS 250 ML IV SCH (02:09)
[2017-12-01 04:43] LABS: PLATELET COUNT 249 10^3/uL (150-400)
[2017-12-01] MEDS: ACETYLCYSTEINE 10% IH/PO 4 ML VIAL IH SCH ×5 (06:04→22:23)
[2017-12-01] MEDS: ALBUTEROL 3 ML DEYVIAL IH SCH ×5 (06:04→22:23)
[2017-12-01] MEDS: PANTOPRAZOLE SODIUM 40 MG VIAL IVP SCH ×2 (08:56→21:37)
[2017-12-01] MEDS: PREGABALIN 100 MG CAP TUBE SCH ×3 (08:56→21:37)
[2017-12-01] MEDS: buPROPion 75 MG TAB TUBE SCH ×2 (08:56→21:37)
[2017-12-01] MEDS: VENLAFAXINE HCL 37.5 MG TAB TUBE SCH ×2 (08:56→21:37)
[2017-12-01] MEDS: ENOXAPARIN 40 MG/0.4 ML SYR SC SCH (08:57)
--- NOTE | 2017-12-01 10:07 | SOAPPROG ---
SOAP Progress Note Assessment/Plan: Assessment/Plan: 71 Y F diarrhea last week, N/V over weekend. Free air on CT. Nonsurgical abdomen on exam. Distended stomach, poor emptying. 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 Aspiration PNA. Duodenal mass c/w adenoCA, CA 19-9 >4000, in setting of GOO. No definite masses on MRI. 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 No mets on CTA. Expect need for surgery once medically stable. Plan for whipple if no mets and for gastrojejunostomy if mets. Patient tolerating NGT clamping. Will get AXR to evaluate for continued gastric distention. Per EGD, may not have complete GOO so might be able to remove NGT. Nutrition via TPN for now. Aspiration PNA. Agree CXR looked improved yesterday. Afebrile. WBCs up today. O2 needs down. On vanc and unasyn. Defer to medicine and pulmonology. Seen and examined with Dr. Navarrete. S: No nausea or vomiting. Breathing more easily. O: alert, nad ng in place no jaundice, mmm ctab rrr abd softly distended, NT 12/01/17 10:02 Objective: Vital Signs Temp Pulse Resp BP Pulse Ox 36.4 C 92 20 105/43 L 94 12/01/17 08:00 12/01/17 08:00 12/01/17 08:00 12/01/17 08:00 12/01/17 08:00 Microbiology 11/25/17 09:37 Blood Culture - Final Blood 11/25/17 09:10 Blood Culture - Final Blood 11/30/17 15:00 Gastrointestinal Tract Panel (PCR) - Final Stool No Organism Detected Laboratory Results 12/01/17 04:12 12/01/17 04:12 11/30/17 12/01/17 12/02/17 05:59 05:59 05:59 Intake Total 3383 3398 Output Total 1650 2150 200 Balance 1733 1248 -200 PT 15.5 SEC (12.0-15.0) H 11/30/17 05:20 INR 1.21 (0.83-1.16) H 11/30/17 05:20 ICD10 Worksheet Patient Problems: Problems Problem Status Onset Dehydration Acute Vomiting Acute Diarrhea Acute
--- NOTE | 2017-12-01 11:32 | HOSPPROG ---
Hospitalist Progress Note Assessment/Plan: # GOO d/t duodenal mass - cont NGT - surgical intervention depends on the presence of metastatic disease # likely pancreatic cancer - no mets so far identified, but ca-19-9 very high - onc consult today # anemia - likely slow GI loss - has received 3U PRBC # FEN - TPN; lytes better # acute hypoxic resp failure - diffuse infiltrates on CXR - aspiration pneumonia - invanz changed to unasyn - possible pulm edema - has received lasix - PE possible but hypoxia explained by CXR # possible sepsis (leuk, tachy, asp pna) - WBC fluctuating - BCx NGTD - cont empiric vanc today # anemia - trending down, likely GIB from tumors - protonix IV - follow daily # chronic pain - tramadol # hyperNa - resolved # MADAI - resolved # tobacco use # pancreatic insufficiency - was taking enzymes # depr/anxiety - cont wellbutrin, effexor; cont ativan IV prn Subjective: brighter today; still SOB Objective: Vital Signs Temp Pulse Resp BP Pulse Ox 36.4 C 108 H 23 H 105/43 L 96 12/01/17 08:00 12/01/17 11:13 12/01/17 11:13 12/01/17 08:00 12/01/17 11:13 Microbiology 11/25/17 09:37 Blood Culture - Final Blood 11/25/17 09:10 Blood Culture - Final Blood 11/30/17 15:00 Gastrointestinal Tract Panel (PCR) - Final Stool No Organism Detected Laboratory Results 12/01/17 04:12 12/01/17 04:12 11/30/17 12/01/17 12/02/17 05:59 05:59 05:59 Intake Total 3383 3398 Output Total 1650 2150 200 Balance 1733 1248 -200 PT 15.5 SEC (12.0-15.0) H 11/30/17 05:20 INR 1.21 (0.83-1.16) H 11/30/17 05:20 high risk with O2 needs - Physical Exam Constitutional: no apparent distress, appears nourished Cardiovascular: regular rate and rhythym, no murmur, rub, or gallop Respiratory: no rales or rhonchi, inspiratory crackles (mild), No expiratory wheeze Gastrointestinal: soft, non-tender abdomen, no palpable masses ICD10 Worksheet Patient Problems: Problems Problem Status Onset Diarrhea Acute Vomiting Acute Dehydration Acute
--- NOTE | 2017-12-01 12:02 | PDINTPN ---
Play Leader Progress Note Assessment/Plan: Assessment/plan: 71 F admitted 11/23 with intractable N/V, complicated by aspiration event 11/24 following esophagram and subsequently found to have esopageal and duodenal masses on EGD (path pending). She had a history of IBS, pancreatic insufficiency. A CT abdo/pelvis revealed a distended, fluid-filled stomach but no masses, but an EGD showed a large mass at the GE junction and a second mass at the duodenum and biopsies were taken. No other masses were noted on an abdominal MRI 11/27. Her pxygen requirement has been creeping up the last feww days as well, up to 10-15 lpm simple mask associated with a sinus tachycardia. 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 Considering surgery. * Aspiration pneumonia- WBC fluctuating after adding vanco 11/29. Continue to observe. Steroids have no clear role. Her O2 requirement is high, but better; now on 8 lpm NC. Prob OK for floor tomorrow Subjective: No events; ongoing mild confusion Objective: Vital Signs Temp Pulse Resp BP Pulse Ox 36.6 C 102 H 22 H 90/37 L 91 L 12/01/17 11:50 12/01/17 11:50 12/01/17 11:50 12/01/17 11:50 12/01/17 11:50 Microbiology 11/25/17 09:37 Blood Culture - Final Blood 11/25/17 09:10 Blood Culture - Final Blood 11/30/17 15:00 Gastrointestinal Tract Panel (PCR) - Final Stool No Organism Detected Laboratory Results 12/01/17 04:12 12/01/17 04:12 11/30/17 12/01/17 12/02/17 05:59 05:59 05:59 Intake Total 3383 3398 Output Total 1650 2150 200 Balance 1733 1248 -200 PT 15.5 SEC (12.0-15.0) H 11/30/17 05:20 INR 1.21 (0.83-1.16) H 11/30/17 05:20 Physical Exam - Physical Exam General Appearance: alert, no apparent distress EENT: PERRL/EOMI Neck: supple Respiratory: lungs clear, decreased breath sounds, No respiratory distress, No accessory muscle use Cardiac/Chest: regular rate, rhythm, No edema Abdomen: non-tender, soft, No distended Skin: normal color, warm/dry, No cyanosis Lymphatic: no adenopathy Extremities: No pedal edema Neuro/Psych: alert, normal mood/affect, cognition abnormalities ICD10 Worksheet Patient Problems: Problems Problem Status Onset Dehydration Acute Vomiting Acute Diarrhea Acute
[2017-12-01] MEDS: 1/2 NS 1,000 ML IV SCH (14:20)
--- NOTE | 2017-12-01 14:55 | ASMTCMCOM ---
CM Note CM Note Notes: Patient to get an oncology consult today regarding possible pancreatic cancer. chaplain Miguelangel is working to help patient name an MDPOA. Radha patient's sister states patient does not have an MDPOA in writing. CM may need to help with this as well. CM will follow. Date Signed: 12/01/2017 02:54 PM Electronically Signed By:Johanna Chan LCSW
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
[2017-12-01] MEDS: ONDANSETRON 4 MG/2 ML VIAL IVP PRN (19:24)
[2017-12-01] MEDS: TPN 1 EA BAG IV SCH (21:37)
[2017-12-01] MEDS: PHENOL 177 ML THROAT SPRAY PO PRN (21:37)
[2017-12-01] MEDS: ACETAMN/DIPHENHYDRAMINE 500/25MG TAB PO PRN (21:48)
[2017-12-02] MEDS: VANCOMYCIN 1.25 GM in NS 250 ML IV SCH ×2 (02:50→15:03)
[2017-12-02] MEDS: 1/2 NS 1,000 ML IV SCH ×2 (04:32→17:44)
[2017-12-02] MEDS: ACETAMINOPHEN 325 MG TAB TUBE PRN (04:40)
[2017-12-02] MEDS: ALBUTEROL 3 ML DEYVIAL IH SCH (05:20)
[2017-12-02] MEDS: ACETYLCYSTEINE 10% IH/PO 4 ML VIAL IH SCH (05:20)
[2017-12-02] MEDS: AMPICILLIN/SULBACTAM 3 GM VIAL IV SCH ×4 (05:27→23:21)
[2017-12-02 06:24] LABS: PLATELET COUNT 277 10^3/uL (150-400)
--- NOTE | 2017-12-02 09:00 | HOSPPROG ---
Hospitalist Progress Note Assessment/Plan: 71F admitted with GOO. EGD shows duodenal mass, pathology adenocarcinoma. Course complicated by aspiration pna and resp failure. Currently awaiting improvement of pulmonary function and deciding on appropriate surgical intervention. # GOO d/t duodenal mass - cont NGT - surgical intervention depends on the presence of metastatic disease; PET? # carcinoma, ampullary vs pancreatic - no mets so far identified, but ca-19-9 very high - appreciate onc consult # anemia - likely slow GI loss - has received 3U PRBC - protonix IV - trend daily # FEN - TPN; lytes better # acute hypoxic resp failure - diffuse infiltrates on CXR - aspiration pneumonia - invanz changed to unasyn - possible pulm edema - has received lasix - PE possible but hypoxia explained by CXR # possible sepsis (leuk, tachy, asp pna) - WBC fluctuating - BCx NGTD - cont empiric vanc today - likely dc soon # chronic pain - tramadol # hyperNa - resolved # MADAI - resolved # tobacco use # pancreatic insufficiency - was taking enzymes # depr/anxiety - cont wellbutrin, effexor; cont ativan IV prn Subjective: questions answered regarding overall plans Objective: Vital Signs Temp Pulse Resp BP Pulse Ox 37.2 C 95 20 103/52 L 90 L 12/02/17 07:27 12/02/17 07:27 12/02/17 07:27 12/02/17 07:27 12/02/17 07:27 Microbiology 11/27/17 05:42 Blood Culture - Final Blood 11/27/17 05:42 Blood Culture - Final Blood 11/25/17 09:37 Blood Culture - Final Blood 11/25/17 09:10 Blood Culture - Final Blood Laboratory Results 12/02/17 05:00 12/02/17 05:00 12/01/17 12/02/17 12/03/17 05:59 05:59 05:59 Intake Total 3398 3131 Output Total 2150 525 150 Balance 1248 2606 -150 PT 15.5 SEC (12.0-15.0) H 11/30/17 05:20 INR 1.21 (0.83-1.16) H 11/30/17 05:20 high risk on high O2 - Physical Exam Constitutional: uncomfortable Ears, Nose, Mouth, Throat: other (NGT) Cardiovascular: regular rate and rhythym, no murmur, rub, or gallop Respiratory: no respiratory distress, inspiratory crackles, No clear to auscultation, No reduced air movement Gastrointestinal: soft, non-tender abdomen, no palpable masses ICD10 Worksheet Patient Problems: Problems Problem Status Onset Diarrhea Acute Vomiting Acute Dehydration Acute
[2017-12-02] MEDS: PREGABALIN 100 MG CAP TUBE SCH ×3 (09:11→20:21)
[2017-12-02] MEDS: guaiFENesin 600 MG TAB.ER PO SCH ×2 (09:11→20:21)
[2017-12-02] MEDS: VENLAFAXINE HCL 37.5 MG TAB TUBE SCH ×2 (09:12→20:21)
[2017-12-02] MEDS: buPROPion 75 MG TAB TUBE SCH ×2 (09:12→20:21)
[2017-12-02] MEDS: ENOXAPARIN 40 MG/0.4 ML SYR SC SCH (09:12)
[2017-12-02] MEDS: PANTOPRAZOLE SODIUM 40 MG VIAL IVP SCH ×2 (09:12→20:20)
--- NOTE | 2017-12-02 12:12 | PDINTPN ---
Quality Control Engineering Technician Progress Note Assessment/Plan: Assessment/plan: 71 F admitted 11/23 with intractable N/V, complicated by aspiration event 11/24 following esophagram and subsequently found to have esopageal and duodenal masses on EGD (path pending). She had a history of IBS, pancreatic insufficiency. A CT abdo/pelvis revealed a distended, fluid-filled stomach but no masses, but an EGD showed a large mass at the GE junction and a second mass at the duodenum and biopsies were taken. No other masses were noted on an abdominal MRI 11/27. Her pxygen requirement has been creeping up the last feww days as well, up to 10-15 lpm simple mask associated with a sinus tachycardia. 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 Considering surgery. * Aspiration pneumonia- WBC fluctuating after adding vanco 11/29. Continue to observe. Steroids have no clear role. Her O2 requirement is high, but better; now on 8 lpm NC. OK for floor tomorrow 12/02/17 12:11 Subjective: periods of confusion Objective: Vital Signs Temp Pulse Resp BP Pulse Ox 37 C 100 24 H 117/57 L 93 12/02/17 11:58 12/02/17 11:58 12/02/17 11:58 12/02/17 11:58 12/02/17 11:58 Microbiology 11/27/17 05:42 Blood Culture - Final Blood 11/27/17 05:42 Blood Culture - Final Blood 11/25/17 09:37 Blood Culture - Final Blood 11/25/17 09:10 Blood Culture - Final Blood Laboratory Results 12/02/17 05:00 12/02/17 05:00 12/01/17 12/02/17 12/03/17 05:59 05:59 05:59 Intake Total 3398 3131 Output Total 2150 525 150 Balance 1248 2606 -150 PT 15.5 SEC (12.0-15.0) H 11/30/17 05:20 INR 1.21 (0.83-1.16) H 11/30/17 05:20 Physical Exam - Physical Exam General Appearance: no apparent distress EENT: PERRL/EOMI Neck: supple Respiratory: lungs clear, No respiratory distress, No accessory muscle use Cardiac/Chest: regular rate, rhythm, No edema Abdomen: soft, No distended Skin: normal color, warm/dry, No cyanosis Lymphatic: no adenopathy Extremities: No pedal edema Neuro/Psych: alert, normal mood/affect ICD10 Worksheet Patient Problems: Problems Problem Status Onset Dehydration Acute Vomiting Acute Diarrhea Acute
[2017-12-02] MEDS: LORazepam 2 MG/ML INJ IVP PRN ×2 (14:39→20:21)
--- NOTE | 2017-12-02 15:10 | SOAPPROG ---
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 Secondary option is surgery to bypass obstruction and then tx with chemo/xrt. * Gastric outlet obstruction: no optimistic she will be able to take PO. If planning surgery soon (i.e. next couple of weeks) would hold off J-tube and continue TPN * Respiratory Failure due to aspiration pneumonia: very slow improvement Subjective: Feels about the same. Trying some jello. Objective: Vital Signs Temp Pulse Resp BP Pulse Ox 37 C 105 H 24 H 117/57 L 89 L 12/02/17 11:58 12/02/17 12:35 12/02/17 11:58 12/02/17 11:58 12/02/17 12:35 Microbiology 11/27/17 05:42 Blood Culture - Final Blood 11/27/17 05:42 Blood Culture - Final Blood Laboratory Results 12/02/17 05:00 12/02/17 05:00 12/01/17 12/02/17 12/03/17 05:59 05:59 05:59 Intake Total 3398 3131 Output Total 2150 525 900 Balance 1248 2606 -900 PT 15.5 SEC (12.0-15.0) H 11/30/17 05:20 INR 1.21 (0.83-1.16) H 11/30/17 05:20 Physical Exam - Physical Exam General Appearance: no apparent distress Respiratory: rhonchi (bilateral) ICD10 Worksheet Patient Problems: Problems Problem Status Onset Dehydration Acute Vomiting Acute Diarrhea Acute
--- NOTE | 2017-12-02 15:13 | SOAPPROG ---
SOAP Progress Note Assessment/Plan: Assessment: 71 Y F diarrhea last week, N/V over weekend. Free air on CT. Nonsurgical abdomen on exam. Distended stomach, poor emptying. 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 Aspiration PNA. S: Doing somewhat better today. Denies n/v. Has appetite. O: Alert Afebrile Abdomen soft, nontender. Chest: rhonchi Plan: CA 19-9 is over 4000/CEA is 4.6. Consistent with pancreatic CA. No evidence on CT or MRI of metastatic disease. If no mets, pt will need whipple. If there are mets, pt will need gastrojejunostomy. Will need chest CT or PET prior to surgery. Will continue to monitor and let her recover from aspiration pna before scheduling surgery. Continue NPO and TPN for nutrition. 12/02/17 15:14 Objective: Vital Signs Temp Pulse Resp BP Pulse Ox 37 C 105 H 24 H 117/57 L 89 L 12/02/17 11:58 12/02/17 12:35 12/02/17 11:58 12/02/17 11:58 12/02/17 12:35 Microbiology 11/27/17 05:42 Blood Culture - Final Blood 11/27/17 05:42 Blood Culture - Final Blood Laboratory Results 12/02/17 05:00 12/02/17 05:00 12/01/17 12/02/17 12/03/17 05:59 05:59 05:59 Intake Total 3398 3131 Output Total 2150 525 900 Balance 1248 2606 -900 PT 15.5 SEC (12.0-15.0) H 11/30/17 05:20 INR 1.21 (0.83-1.16) H 11/30/17 05:20 ICD10 Worksheet Patient Problems: Problems Problem Status Onset Dehydration Acute Vomiting Acute Diarrhea Acute
[2017-12-02] MEDS: ALTEPLASE 2 MG VIAL IVP PRN (15:31)
[2017-12-02] MEDS: PROMETHAZINE HCL 25 MG/ML INJ IVP PRN (20:21)
[2017-12-02] MEDS: TPN 1 EA BAG IV SCH (20:24)
[2017-12-02] MEDS: ONDANSETRON 4 MG/2 ML VIAL IVP PRN (23:21)
[2017-12-03] MEDS: VANCOMYCIN 1.25 GM in NS 250 ML IV SCH ×2 (04:28→14:35)
[2017-12-03 04:49] LABS: PLATELET COUNT 299 10^3/uL (150-400)
[2017-12-03] MEDS: AMPICILLIN/SULBACTAM 3 GM VIAL IV SCH ×3 (06:39→18:17)
--- NOTE | 2017-12-03 08:10 | SOAPPROG ---
SOAP Progress Note Assessment/Plan: Assessment: Asked to see for a 71-year-old female with possible free air. Patient is been sick for over 2 days with 0 vomiting and inability to eat. Came to the ER for evaluation where chest x-ray showed possible free air. Chest is clear/cor regular rhythm/abdomen soft and nontender with positive bowel sounds Impression is possible free air but her symptoms do not fit a perforated viscus. She is afebrile. 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/MRI SHOWS NO PANCREATIC MASS AND NO SIGNIFICANT DUCTAL DILATATION IF PATIENT CAN BECOME MEDICALLY STABLE FROM PULMONARY STANDPOINT HE MAY BE A GOOD CANDIDATE FOR PANCREATICODUODENECTOMY/LABS PENDING 11/29/17 17:52 CA 19-9 IS OVER 4000/CEA IS 4.6/CONSISTENT WITH PANCREATIC CANCER/CA 19 9 MAY SUGGEST METASTATIC DISEASE DESPITE NO EVIDENCE ON CT OR MRI 11/30/17 13:04 much more alert and active today/ cxr improved/ abd soft/ minimal ng out/ + bm and flatus/ hungry may need chest ct or pet to ro mets prior to surgery chest still some rhonchi, cor rr, abd soft, much less distended and less tympanitic eventual whipple if no mets found/ if mets will need gastrojejunostomy 12/03/17 08:09 appears to have significant aspiration on cxr this am/ on abx/ o2 sat ok/ ng back on suction and npo Objective: Vital Signs Temp Pulse Resp BP Pulse Ox 36.9 C 78 20 99/53 L 96 12/03/17 08:00 12/03/17 08:00 12/03/17 08:00 12/03/17 08:00 12/03/17 08:00 Microbiology 11/27/17 05:42 Blood Culture - Final Blood 11/27/17 05:42 Blood Culture - Final Blood Laboratory Results 12/03/17 04:30 12/03/17 04:30 12/02/17 12/03/17 12/04/17 05:59 05:59 05:59 Intake Total 3131 3557 Output Total 525 1200 Balance 2606 2357 PT 15.5 SEC (12.0-15.0) H 11/30/17 05:20 INR 1.21 (0.83-1.16) H 11/30/17 05:20 ICD10 Worksheet Patient Problems: Problems Problem Status Onset Dehydration Acute Vomiting Acute Diarrhea Acute
[2017-12-03] MEDS: ENOXAPARIN 40 MG/0.4 ML SYR SC SCH (08:53)
[2017-12-03] MEDS: VENLAFAXINE HCL 37.5 MG TAB TUBE SCH ×2 (08:53→20:33)
[2017-12-03] MEDS: PANTOPRAZOLE SODIUM 40 MG VIAL IVP SCH ×2 (08:53→20:32)
[2017-12-03] MEDS: buPROPion 75 MG TAB TUBE SCH ×2 (08:53→20:33)
[2017-12-03] MEDS: PREGABALIN 100 MG CAP TUBE SCH ×3 (08:53→20:33)
--- NOTE | 2017-12-03 08:56 | HOSPPROG ---
Hospitalist Progress Note Assessment/Plan: 71F admitted with GOO. EGD shows duodenal mass, pathology adenocarcinoma. Course complicated by aspiration pna and resp failure. Currently awaiting improvement of pulmonary function and deciding on appropriate surgical intervention, likely Whipple. # GOO d/t duodenal mass - cont NGT - surgical intervention depends on the presence of metastatic disease; PET? # carcinoma, ampullary - no mets so far identified, but ca-19-9 very high - appreciate onc consult # anemia - likely slow GI loss - has received 3U PRBC - protonix IV - trend daily # FEN - TPN; lytes better # acute hypoxic resp failure - diffuse infiltrates on CXR - aspiration pneumonia - invanz changed to unasyn - will start diuresis today - PE possible but hypoxia explained by CXR # aspiration pneumonia - cont unasyn, vanc - strict NPO, keep NGT to suction # possible sepsis (leuk, tachy, asp pna) - WBC fluctuating - BCx NGTD # chronic pain - tramadol # hyperNa - resolved # MADAI - resolved # tobacco use # pancreatic insufficiency - was taking enzymes # depr/anxiety - cont wellbutrin, effexor; cont ativan IV prn Subjective: no significant clinical change today Objective: Vital Signs Temp Pulse Resp BP Pulse Ox 36.9 C 78 20 99/53 L 96 12/03/17 08:00 12/03/17 08:00 12/03/17 08:00 12/03/17 08:00 12/03/17 08:00 Microbiology 11/27/17 05:42 Blood Culture - Final Blood 11/27/17 05:42 Blood Culture - Final Blood Laboratory Results 12/03/17 04:30 12/03/17 04:30 12/02/17 12/03/17 12/04/17 05:59 05:59 05:59 Intake Total 3131 3557 Output Total 525 1200 Balance 2606 2357 PT 15.5 SEC (12.0-15.0) H 11/30/17 05:20 INR 1.21 (0.83-1.16) H 11/30/17 05:20 high risk with high O2 - Physical Exam Constitutional: no apparent distress, appears nourished, other (NGT) Cardiovascular: regular rate and rhythym, no murmur, rub, or gallop Respiratory: no respiratory distress, expiratory wheeze (mild), inspiratory crackles Gastrointestinal: soft, non-tender abdomen, no palpable masses ICD10 Worksheet Patient Problems: Problems Problem Status Onset Diarrhea Acute Vomiting Acute Dehydration Acute
[2017-12-03] MEDS: PROMETHAZINE HCL 25 MG/ML INJ IVP PRN (10:00)
[2017-12-03] MEDS: guaiFENesin 600 MG TAB.ER PO SCH ×2 (10:02→20:33)
[2017-12-03] MEDS: FUROSEMIDE 20 MG/2 ML VIAL IVP SCH (10:02)
--- NOTE | 2017-12-03 11:57 | PDINTPN ---
Watermelon Inspector Progress Note Assessment/Plan: Assessment/plan: 71 F admitted 11/23 with intractable N/V, complicated by aspiration event 11/24 following esophagram and subsequently found to have esopageal and duodenal masses on EGD (path pending). She had a history of IBS, pancreatic insufficiency. A CT abdo/pelvis revealed a distended, fluid-filled stomach but no masses, but an EGD showed a large mass at the GE junction and a second mass at the duodenum and biopsies were taken. No other masses were noted on an abdominal MRI 11/27. Her pxygen requirement has been creeping up the last feww days as well, up to 10-15 lpm simple mask associated with a sinus tachycardia. 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 Considering surgery. Discussed case with Dr. Navarrete and appropriately waiting for pulmonary status to improvement prior to OR. She may not get much better, so consodering next week, knowing she will return from OR vented for at least a day and may have difficulty given her respiratory status even when extubated. Not sure PET would help at this point since no obvious mets on CT of chest/abdo/ pelvis. * Aspiration pneumonia- additional aspiration event overnight resulted in worsening infiltrates on CXR despite no change in O2 requirement. She has also been getting IVF at 75/hr which were stopped today and she received low dose lasix. Now NPO. Unasyn started 12/01, but no change in abx for today (slight inc wbc). No bronch indicated at this time. * Subjective: aspiration event overnight with po Objective: Vital Signs Temp Pulse Resp BP Pulse Ox 36.9 C 78 20 99/53 L 88 L 12/03/17 08:00 12/03/17 08:00 12/03/17 08:00 12/03/17 08:00 12/03/17 09:30 Microbiology 11/27/17 05:42 Blood Culture - Final Blood 11/27/17 05:42 Blood Culture - Final Blood Laboratory Results 12/03/17 04:30 12/03/17 04:30 12/02/17 12/03/17 12/04/17 05:59 05:59 05:59 Intake Total 3131 3557 Output Total 525 1200 500 Balance 2606 2357 -500 PT 15.5 SEC (12.0-15.0) H 11/30/17 05:20 INR 1.21 (0.83-1.16) H 11/30/17 05:20 Physical Exam - Physical Exam General Appearance: alert, no apparent distress EENT: PERRL/EOMI Neck: supple Respiratory: decreased breath sounds, crackles, No respiratory distress, No accessory muscle use Cardiac/Chest: regular rate, rhythm, No edema Abdomen: non-tender, soft, No distended Skin: normal color, warm/dry, No cyanosis Lymphatic: no adenopathy Extremities: No pedal edema Neuro/Psych: alert, normal mood/affect ICD10 Worksheet Patient Problems: Problems Problem Status Onset Dehydration Acute Vomiting Acute Diarrhea Acute
--- NOTE | 2017-12-03 12:33 | SOAPPROG ---
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 Secondary option is surgery to bypass obstruction and then tx with chemo/xrt. Spoke with Dr. Navarrete and we both agree to get her better from the pulmonary standpoint, get outpatient PET, and, if no mets, resect. * Gastric outlet obstruction: Probably aspirated again. Should either stay on TPN and no po or consider J-tube until surgery * Respiratory Failure due to aspiration pneumonia: probably a set back again Subjective: Sleepy. Feeling about same. Aspirated again? Objective: Vital Signs Temp Pulse Resp BP Pulse Ox 36.9 C 78 20 99/53 L 88 L 12/03/17 08:00 12/03/17 08:00 12/03/17 08:00 12/03/17 08:00 12/03/17 09:30 Microbiology 11/27/17 05:42 Blood Culture - Final Blood 11/27/17 05:42 Blood Culture - Final Blood Laboratory Results 12/03/17 04:30 12/03/17 04:30 12/02/17 12/03/17 12/04/17 05:59 05:59 05:59 Intake Total 3131 3557 Output Total 525 1200 500 Balance 2606 2357 -500 PT 15.5 SEC (12.0-15.0) H 11/30/17 05:20 INR 1.21 (0.83-1.16) H 11/30/17 05:20 Physical Exam - Physical Exam Respiratory: crackles, No wheezing Cardiac/Chest: regular rate, rhythm ICD10 Worksheet Patient Problems: Problems Problem Status Onset Dehydration Acute Vomiting Acute Diarrhea Acute
--- NOTE | 2017-12-03 12:37 | ASMTCMCOM ---
CM Note CM Note Notes: Patient case discussed in rounds. She is 71 year old female who lives alone . She has possible aspiration complications and may go to surgery bacilio next week for whipple . She is on TPN, Has NG tube in place, NPO. Needs to be determined. Possibly will need nursing facility.CM to follow Date Signed: 12/03/2017 12:36 PM Electronically Signed By:Candace Carpenter RN
[2017-12-03] MEDS: LORazepam 2 MG/ML INJ IVP PRN (20:32)
[2017-12-03] MEDS: traMADol 50 MG TAB TUBE PRN (20:32)
[2017-12-03] MEDS: TPN 1 EA BAG IV SCH (20:32)
[2017-12-04] MEDS: AMPICILLIN/SULBACTAM 3 GM VIAL IV SCH ×4 (01:00→17:31)
[2017-12-04] MEDS: VANCOMYCIN 1.25 GM in NS 250 ML IV SCH ×2 (02:43→14:44)
[2017-12-04] MEDS: ALTEPLASE 2 MG VIAL IVP PRN (05:57)
[2017-12-04] MEDS: ENOXAPARIN 40 MG/0.4 ML SYR SC SCH (09:28)
[2017-12-04] MEDS: buPROPion 75 MG TAB TUBE SCH ×2 (09:29→21:15)
[2017-12-04] MEDS: VENLAFAXINE HCL 37.5 MG TAB TUBE SCH ×2 (09:29→21:15)
[2017-12-04] MEDS: guaiFENesin 600 MG TAB.ER PO SCH ×2 (09:29→21:15)
[2017-12-04] MEDS: PANTOPRAZOLE SODIUM 40 MG VIAL IVP SCH (09:29)
[2017-12-04] MEDS: FUROSEMIDE 20 MG/2 ML VIAL IVP SCH (09:29)
[2017-12-04] MEDS: PREGABALIN 100 MG CAP TUBE SCH ×3 (09:30→21:15)
--- NOTE | 2017-12-04 11:33 | PDINTPN ---
Improvement Specialist Progress Note Assessment/Plan: Assessment/plan: 71 F admitted 11/23 with intractable N/V, complicated by aspiration event 11/24 following esophagram and subsequently found to have esopageal and duodenal masses on EGD (path pending). She had a history of IBS, pancreatic insufficiency. A CT abdo/pelvis revealed a distended, fluid-filled stomach but no masses, but an EGD showed a large mass at the GE junction and a second mass at the duodenum and biopsies were taken. No other masses were noted on an abdominal MRI 11/27. Her pxygen requirement has been creeping up the last feww days as well, up to 10-15 lpm simple mask associated with a sinus tachycardia. 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 Considering surgery. Discussed case with Dr. Navarrete and appropriately waiting for pulmonary status to improvement prior to OR. * Aspiration pneumonia- additional aspiration event 12/02 resulted in worsening infiltrates on CXR despite no change in O2 requirement. She has also been getting IVF at 75/hr which were stopped 12/03 and she received low dose lasix. Now NPO. Unasyn started 12/01, but no change in abx for today (slight inc wbc). No bronch indicated at this time. O2 needs continuing to decrease. * 12/04/17 11:32 Subjective: feels well- anxious to get surgery if/when appropriate Objective: Vital Signs Temp Pulse Resp BP Pulse Ox 37.7 C 87 15 109/48 L 92 12/04/17 00:00 12/04/17 00:00 12/04/17 06:00 12/04/17 06:00 12/04/17 06:00 Laboratory Results 12/03/17 04:30 12/03/17 04:30 12/03/17 12/04/17 12/05/17 05:59 05:59 05:59 Intake Total 3557 2184 Output Total 1200 2550 Balance 2357 -366 PT 15.5 SEC (12.0-15.0) H 11/30/17 05:20 INR 1.21 (0.83-1.16) H 11/30/17 05:20 Physical Exam - Physical Exam General Appearance: WD/WN, alert, no apparent distress EENT: PERRL/EOMI Neck: supple Respiratory: decreased breath sounds, No respiratory distress, No accessory muscle use Cardiac/Chest: regular rate, rhythm, No edema Abdomen: non-tender, soft, No distended Skin: normal color, warm/dry, No cyanosis Lymphatic: no adenopathy Extremities: No pedal edema Neuro/Psych: alert, normal mood/affect, oriented x 3 ICD10 Worksheet Patient Problems: Problems Problem Status Onset Dehydration Acute Vomiting Acute Diarrhea Acute
[2017-12-04] MEDS: LORazepam 2 MG/ML INJ IVP PRN ×2 (11:51→21:16)
--- NOTE | 2017-12-04 16:49 | HOSPPROG ---
Hospitalist Progress Note Assessment/Plan: Subjective Follow-up on acute hypoxic respiratory failure and gastric outlet obstruction No acute events overnight. Patient states she thinks her breathing is a little bit better today as compared to days prior. She does ask about taking out her NG tube. I explained her that I think this will need to stay in for now. Case was reviewed with Dr. Wakefield with Pulmonary Critical Care Medicine today. The tentative plan is to look at PET scan imaging once her pulmonary status has improved. Objective Vital signs as detailed below Exam General-patient appears comfortable lying in bed no acute distress Heart-regular no murmurs appreciated Lungs-normal respiratory effort. No significant wheezing appreciated. Slight crackles at lung base. Abdomen-soft nontender nondistended -no Smith catheter in place Extremities-no significant pitting edema appreciated Labs As detailed below Assessment and plan 1. Adenocarcinoma-biopsies from her duodenal lesion are showing adenocarcinoma. The tentative plan is for PET imaging for further assessment. And then we can determine a further plan of action in regards to surgery. 2. Acute hypoxic respiratory failure-suspecting triggered by an aspiration event. She has made progress in weaning her oxygen today. Continue current vancomycin and Unasyn. 3. Pneumonia-as detailed above. 4. Gastric outlet obstruction-this is secondary to her duodenal mass. Continue NG tube suction. 5. Anemia-patient was given 3 units of blood as she had a drop in her hemoglobin down to 6 this has responded appropriately up to 9. It remains stable today at 9. 6. Chronic pain-continue tramadol 7. Tobacco use-nicotine patch if desired by patient. 8. Depression and anxiety-continue current FX or and q.4 hours as needed lorazepam. Patient appeared very comfortable today not anxious. 9. DVT prophylaxis-continue Lovenox. Monitor hemoglobin closely. 10. Food electrolytes nutrition-continue TPN for nutrition next 11. Disposition-patient is a full code status. She is was will still need significant of medical care to manage her symptoms. Objective: Vital Signs Temp Pulse Resp BP Pulse Ox 36.4 C 86 18 103/52 L 89 L 12/04/17 11:31 12/04/17 11:31 12/04/17 11:31 12/04/17 11:31 12/04/17 14:01 Laboratory Results 12/03/17 04:30 12/03/17 04:30 12/03/17 12/04/17 12/05/17 05:59 05:59 05:59 Intake Total 3557 2184 Output Total 1200 2550 Balance 2357 -366 PT 15.5 SEC (12.0-15.0) H 11/30/17 05:20 INR 1.21 (0.83-1.16) H 11/30/17 05:20 ICD10 Worksheet Patient Problems: Problems Problem Status Onset Dehydration Acute Vomiting Acute Diarrhea Acute
[2017-12-04] MEDS: TPN 1 EA BAG IV SCH (21:14)
[2017-12-04] MEDS: traMADol 50 MG TAB TUBE PRN (21:15)
[2017-12-05] MEDS: AMPICILLIN/SULBACTAM 3 GM VIAL IV SCH ×4 (01:10→17:56)
[2017-12-05] MEDS: VANCOMYCIN 1.25 GM in NS 250 ML IV SCH ×2 (03:32→14:14)
[2017-12-05 05:37] LABS: PLATELET COUNT 373 10^3/uL (150-400)
[2017-12-05] MEDS: ONDANSETRON 4 MG/2 ML VIAL IVP PRN (07:56)
[2017-12-05] MEDS: FUROSEMIDE 20 MG/2 ML VIAL IVP SCH (09:09)
[2017-12-05] MEDS: buPROPion 75 MG TAB TUBE SCH (09:09)
[2017-12-05] MEDS: VENLAFAXINE HCL 37.5 MG TAB TUBE SCH (09:09)
[2017-12-05] MEDS: PREGABALIN 100 MG CAP TUBE SCH ×3 (09:09→23:23)
[2017-12-05] MEDS: ENOXAPARIN 40 MG/0.4 ML SYR SC SCH (09:09)
[2017-12-05] MEDS: PANTOPRAZOLE SODIUM 40 MG VIAL IVP SCH (09:10)
[2017-12-05] MEDS: guaiFENesin 600 MG TAB.ER PO SCH (10:00)
--- NOTE | 2017-12-05 11:00 | SOAPPROG ---
SOAP Progress Note Assessment/Plan: Assessment: 1. Ampullary adenocarcinoma 2. Duodenal obstruction due to #1 3. Anemia of chronic inflammation +/- Fe deficiency Discussed case with ICU team and surgery. Pt does not have apparent metastatic disease on CT. No further imaging (PET, bone scan) needed for this type of cancer, unlikely to be revealing. Pt should proceed to surgical exploration when stable from a pulmonary point of view (next few days, likely.) If tumor is localized, it will be resected. If metastatic or unresectable disease noted, then pt will have bypass surgery to alleviate obstruction and then can discuss options for systemic therapy. Plan: - surgery - f/u with med onc for treatment options after surgery 30 min spent w/ pt and in coordination of care. 12/05/17 10:58 12/05/17 10:58 Subjective: feeling better. NGT is bothering her. Objective: exam: NAD Lungs CTAB CV RRR no MGR Abd: +BS NT ND Ext: no edema Vital Signs Temp Pulse Resp BP Pulse Ox 36.9 C 80 16 103/55 L 94 12/05/17 08:00 12/05/17 08:00 12/05/17 08:00 12/05/17 08:00 12/05/17 08:00 Microbiology 11/29/17 12:20 Blood Culture - Final Blood Laboratory Results 12/05/17 05:30 12/05/17 08:00 12/04/17 12/05/17 12/06/17 05:59 05:59 05:59 Intake Total 2184 1842 Output Total 2550 200 Balance -366 1642 PT 15.5 SEC (12.0-15.0) H 11/30/17 05:20 INR 1.21 (0.83-1.16) H 11/30/17 05:20 ICD10 Worksheet Patient Problems: Problems Problem Status Onset Dehydration Acute Vomiting Acute Diarrhea Acute
--- NOTE | 2017-12-05 11:24 | PDINTPN ---
Civil Engineering Specialist Progress Note Assessment/Plan: Assessment/plan: 71 F admitted 11/23 with intractable N/V, complicated by aspiration event 11/24 following esophagram and subsequently found to have esopageal and duodenal masses on EGD (path pending). She had a history of IBS, pancreatic insufficiency. A CT abdo/pelvis revealed a distended, fluid-filled stomach but no masses, but an EGD showed a large mass at the GE junction and a second mass at the duodenum and biopsies were taken. No other masses were noted on an abdominal MRI 11/27. Her pxygen requirement has been creeping up the last feww days as well, up to 10-15 lpm simple mask associated with a sinus tachycardia. 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 Considering surgery. Discussed case with Dr. Navarrete and appropriately waiting for pulmonary status to improvement prior to OR. * Aspiration pneumonia- additional aspiration event 12/02 resulted in worsening infiltrates on CXR despite no change in O2 requirement. She has also been getting IVF at 75/hr which were stopped 12/03 and she received low dose lasix. Now NPO. Unasyn started 12/01. O2 down to 2 lpm- so OK for OR from pulmonary perspective. * OK for med/surg status Subjective: no complaints Objective: Vital Signs Temp Pulse Resp BP Pulse Ox 36.9 C 80 16 103/55 L 94 12/05/17 08:00 12/05/17 08:00 12/05/17 08:00 12/05/17 08:00 12/05/17 08:00 Microbiology 11/29/17 12:20 Blood Culture - Final Blood Laboratory Results 12/05/17 05:30 12/05/17 08:00 12/04/17 12/05/17 12/06/17 05:59 05:59 05:59 Intake Total 2184 1842 Output Total 2550 200 Balance -366 1642 PT 15.5 SEC (12.0-15.0) H 11/30/17 05:20 INR 1.21 (0.83-1.16) H 11/30/17 05:20 Physical Exam - Physical Exam General Appearance: alert, no apparent distress EENT: PERRL/EOMI Neck: supple Respiratory: lungs clear, decreased breath sounds, No respiratory distress, No accessory muscle use Cardiac/Chest: regular rate, rhythm, No edema Abdomen: non-tender, soft, No distended Skin: normal color, warm/dry, No cyanosis Lymphatic: no adenopathy Extremities: No pedal edema Neuro/Psych: alert, normal mood/affect, oriented x 3 ICD10 Worksheet Patient Problems: Problems Problem Status Onset Dehydration Acute Vomiting Acute Diarrhea Acute
[2017-12-05] MEDS: guaiFENesin 200 MG/10 ML UDL TUBE SCH ×3 (14:14→23:23)
[2017-12-05] MEDS: traMADol 50 MG TAB TUBE PRN ×2 (14:14→19:57)
--- NOTE | 2017-12-05 15:28 | HOSPPROG ---
Hospitalist Progress Note Assessment/Plan: Subjective Follow-up on adenocarcinoma No acute events overnight. Patient reports good control of her pain. We did discuss having an IV pain medication for pain relief if needed however she has done reasonably well currently. Case was also reviewed with surgery and Oncology today along with Pulmonary Critical Care Medicine. The tentative plan is for stabilization of her respiratory status and then proceed to the operating room for exploration of her abdomen. There was some discussion previously about possibly doing a PET scan however this has been placed on hold with the thought that it may not provide much added value in the evaluation. Objective Vital signs as detailed below On physical exam, patient appears comfortable she is awake alert conversant no acute distress. On heart exam, the regular and no murmurs appreciated. On lung exam, normal respiratory effort. No significant wheezing. Less than crackles at lung bases. On abdominal exam, normal active bowel sounds. No significant distention or tenderness noted. , no Smith catheter in place. Extremities, no significant pitting edema appreciated. On skin exam no concerning skin rashes noted. Labs as detailed below Assessment plan 1. Adenocarcinoma, the biopsies from her duodenal lesion are showing adenocarcinoma. The plan is for exploratory surgery once her respiratory status is stable. I would anticipate this in the coming days. 2. Acute hypoxic respiratory failure-suspecting secondary to aspiration event. She has made significant progress over the past 24 hr in weaning her oxygen. Continue with current Unasyn and vancomycin. 3. Pneumonia-suspecting aspiration pneumonia. Patient appears to be progressing favorably. 4. Gastric outlet obstruction-this is secondary to her duodenal mass. Continue with NG tube suction. 5. Leukocytosis-this has improved over the past 24 hr from 18-15. No current fevers today. Continue to trend. 6. Anemia-hemoglobin is stable going from 9 yesterday to 8.9 today. 7. Chronic pain-patient was previously on tramadol as an outpatient but not using currently. I have added IV fentanyl in case of the need for better pain control but the patient currently appears comfortable. 8. Tobacco use-patient appears comfortable without nicotine patch. 9. Depression and anxiety-appears stable currently. Continue current Wellbutrin and Effexor. P.r.n. Ativan is also ordered 10. DVT prophylaxis -patient is currently on Lovenox 11. Disposition-patient is a full code status. The plan is to keep her here in the hospital until respiratory status is more stable to where she can have surgery for exploration of her abdominal tumor. Objective: Vital Signs Temp Pulse Resp BP Pulse Ox 36.9 C 80 16 103/55 L 94 12/05/17 08:00 12/05/17 08:00 12/05/17 08:00 12/05/17 08:00 12/05/17 08:00 Microbiology 11/29/17 12:20 Blood Culture - Final Blood Laboratory Results 12/05/17 05:30 12/05/17 08:00 12/04/17 12/05/17 12/06/17 05:59 05:59 05:59 Intake Total 2184 1842 Output Total 2550 200 Balance -366 1642 PT 15.5 SEC (12.0-15.0) H 11/30/17 05:20 INR 1.21 (0.83-1.16) H 11/30/17 05:20 ICD10 Worksheet Patient Problems: Problems Problem Status Onset Dehydration Acute Vomiting Acute Diarrhea Acute
[2017-12-05] MEDS ORDERED: fentaNYL 100 MCG/2 ML INJ IVP PRN (15:29)
[2017-12-05] MEDS: PHENOL 177 ML THROAT SPRAY PO PRN (16:32)
[2017-12-05] MEDS: LORazepam 2 MG/ML INJ IVP PRN (22:09)
[2017-12-05] MEDS: TPN 1 EA BAG IV SCH (23:23)
[2017-12-06] MEDS: buPROPion 75 MG TAB TUBE SCH ×3 (00:20→22:20)
[2017-12-06] MEDS: VENLAFAXINE HCL 37.5 MG TAB TUBE SCH ×3 (00:21→22:21)
[2017-12-06] MEDS: AMPICILLIN/SULBACTAM 3 GM VIAL IV SCH ×5 (00:22→17:32)
[2017-12-06] MEDS: traMADol 50 MG TAB TUBE PRN ×2 (01:04→17:31)
[2017-12-06] MEDS: LORazepam 2 MG/ML INJ IVP PRN (02:08)
[2017-12-06] MEDS: VANCOMYCIN 1.25 GM in NS 250 ML IV SCH ×2 (02:09→15:23)
[2017-12-06] MEDS: guaiFENesin 200 MG/10 ML UDL TUBE SCH ×6 (02:09→22:21)
[2017-12-06 05:07] LABS: PLATELET COUNT 411 10^3/uL (150-400)
[2017-12-06 05:16] LABS: INR 1.13 (0.83-1.16); PROTIME(PATIENT) 14.7 SEC (12.0-15.0)
[2017-12-06] MEDS: PREGABALIN 100 MG CAP TUBE SCH ×3 (08:58→22:20)
[2017-12-06] MEDS: PANTOPRAZOLE SODIUM 40 MG VIAL IVP SCH (08:58)
[2017-12-06] MEDS: ENOXAPARIN 40 MG/0.4 ML SYR SC SCH (08:58)
--- NOTE | 2017-12-06 09:12 | SOAPPROG ---
SOAP Progress Note Assessment/Plan: Assessment: Asked to see for a 71-year-old female with possible free air. Patient is been sick for over 2 days with 0 vomiting and inability to eat. Came to the ER for evaluation where chest x-ray showed possible free air. Chest is clear/cor regular rhythm/abdomen soft and nontender with positive bowel sounds Impression is possible free air but her symptoms do not fit a perforated viscus. She is afebrile. 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/MRI SHOWS NO PANCREATIC MASS AND NO SIGNIFICANT DUCTAL DILATATION IF PATIENT CAN BECOME MEDICALLY STABLE FROM PULMONARY STANDPOINT HE MAY BE A GOOD CANDIDATE FOR PANCREATICODUODENECTOMY/LABS PENDING 11/29/17 17:52 CA 19-9 IS OVER 4000/CEA IS 4.6/CONSISTENT WITH PANCREATIC CANCER/CA 19 9 MAY SUGGEST METASTATIC DISEASE DESPITE NO EVIDENCE ON CT OR MRI 11/30/17 13:04 much more alert and active today/ cxr improved/ abd soft/ minimal ng out/ + bm and flatus/ hungry may need chest ct or pet to ro mets prior to surgery chest still some rhonchi, cor rr, abd soft, much less distended and less tympanitic eventual whipple if no mets found/ if mets will need gastrojejunostomy 12/03/17 08:09 appears to have significant aspiration on cxr this am/ on abx/ o2 sat ok/ ng back on suction and npo 12/06/17 09:10 LOOKS GOOD/ ABD SOFT/ AFEBRILE/ LARGE NG OUTPUT BUT CLEAR/ SOON READY FOR SURGICAL RESECTION/ WILL DISCUSS WITH IM Objective: Vital Signs Temp Pulse Resp BP Pulse Ox 36.7 C 89 18 95/54 L 91 L 12/06/17 08:00 12/06/17 08:00 12/06/17 08:00 12/06/17 08:00 12/06/17 08:00 Microbiology 11/29/17 12:20 Blood Culture - Final Blood Laboratory Results 12/06/17 04:40 12/06/17 04:40 12/05/17 12/06/17 12/07/17 05:59 05:59 05:59 Intake Total 1842 1428 Output Total 200 1150 Balance 1642 278 PT 14.7 SEC (12.0-15.0) 12/06/17 04:40 INR 1.13 (0.83-1.16) 12/06/17 04:40 ICD10 Worksheet Patient Problems: Problems Problem Status Onset Dehydration Acute Vomiting Acute Diarrhea Acute
--- NOTE | 2017-12-06 09:35 | ASMTCMCOM ---
CM Note CM Note Notes: CM spoke w/ [place] RN regarding d/c POC. Pt will most likely be a few days out until surgery. CM met w/ pt for dispo planning. Therapies are recommending SNF. Pt has chosen [facility]. Referrals sent to respective facilities. CM completed non triggering PASRR. Pt reports that her mother this Jun. Pt reports that she has a supportive sister that lives in [place]. Pt reports that her sister is currently in town. CM to follow. Plan: SNF Date Signed: 12/06/2017 09:34 AM Electronically Signed By:YAS Chavez
[2017-12-06] MEDS: POTASSIUM Cl (KCl) 10 MEQ in NS 100 ML IV SCH ×2 (12:25→14:08)
[2017-12-06] MEDS: NS 1,000 ML IV SCH (12:28)
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
[2017-12-06] MEDS: LIDOCAINE 4%/MENTHOL 1% PATCH TD SCH (16:01)
[2017-12-06] MEDS: TPN 1 EA BAG IV SCH (22:21)
[2017-12-06] MEDS: PATCH REMOVAL 1 EA PATCH TD SCH (22:38)
[2017-12-07] MEDS: LORazepam 2 MG/ML INJ IVP PRN ×4 (00:29→22:55)
[2017-12-07] MEDS: VANCOMYCIN 1.25 GM in NS 250 ML IV SCH ×2 (01:41→14:32)
[2017-12-07] MEDS: guaiFENesin 200 MG/10 ML UDL TUBE SCH ×6 (01:41→22:55)
[2017-12-07] MEDS: AMPICILLIN/SULBACTAM 3 GM VIAL IV SCH ×4 (05:51→18:21)
[2017-12-07] MEDS: VENLAFAXINE HCL 37.5 MG TAB TUBE SCH ×2 (09:05→22:55)
[2017-12-07] MEDS: buPROPion 75 MG TAB TUBE SCH ×2 (09:05→22:54)
[2017-12-07] MEDS: ENOXAPARIN 40 MG/0.4 ML SYR SC SCH (09:05)
[2017-12-07] MEDS: PREGABALIN 100 MG CAP TUBE SCH ×3 (09:05→22:54)
[2017-12-07] MEDS: PANTOPRAZOLE SODIUM 40 MG VIAL IVP SCH (09:05)
[2017-12-07 09:40] LABS: PLATELET COUNT 499 10^3/uL (150-400)
[2017-12-07] MEDS ORDERED: HYDROmorphONE/DILAUDID 1 MG/ML INJ IVP PRN (11:34)
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
[2017-12-07] MEDS ORDERED: FUROSEMIDE 20 MG/2 ML VIAL IVP ONE (11:35)
[2017-12-07] MEDS: NS 1,000 ML IV SCH (13:05)
[2017-12-07] MEDS: traMADol 50 MG TAB TUBE PRN ×2 (13:14→22:53)
[2017-12-07] MEDS: SALONPAS TP SCH (15:41)
[2017-12-07] MEDS: LIDOCAINE 4%/MENTHOL 1% PATCH TD SCH (15:41)
--- NOTE | 2017-12-07 18:31 | SOAPPROG ---
SOAP Progress Note Assessment/Plan: Assessment/Plan: 71 Y F diarrhea last week, N/V over weekend. Free air on CT. Nonsurgical abdomen on exam. Distended stomach, poor emptying. 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 Aspiration PNA. Probable whipple vs gastric emptying procedure for likely pancreatic CA once more medically stable. Personally reviewed chest CT and xrays with Dr. Navarrete earlier today. Would like better clearing of lungs from her PNA before moving forward with such a potentially large surgery. Possibly later this week or early next week. CA 19-9> 4000. Discussed surgery and expectations with patient and her sister today. S: Feeling better. Wants to walk more. Eager to get surgery over with. O: alert, nad ng in place no jaundice, mmm ctab rrr abd softly distended, NT 12/07/17 18:28 Objective: Vital Signs Temp Pulse Resp BP Pulse Ox 36.8 C 80 16 114/56 L 93 12/07/17 16:00 12/07/17 16:00 12/07/17 16:00 12/07/17 16:00 12/07/17 16:00 Laboratory Results 12/07/17 09:37 12/07/17 15:38 12/06/17 12/07/17 12/08/17 05:59 05:59 05:59 Intake Total 1428 0 787 Output Total 1150 1400 850 Balance 278 -1400 -63 PT 14.7 SEC (12.0-15.0) 12/06/17 04:40 INR 1.13 (0.83-1.16) 12/06/17 04:40 ICD10 Worksheet Patient Problems: Problems Problem Status Onset Dehydration Acute Vomiting Acute Diarrhea Acute
[2017-12-07] MEDS: HYDROmorphone HCL/NS 0.5 MG/ML SYR IVP PRN (18:40)
[2017-12-07] MEDS: TPN 1 EA BAG IV SCH (21:45)
[2017-12-07] MEDS: PATCH REMOVAL 1 EA PATCH TD SCH (22:55)
[2017-12-08] MEDS: AMPICILLIN/SULBACTAM 3 GM VIAL IV SCH ×4 (00:23→18:13)
[2017-12-08] MEDS: guaiFENesin 200 MG/10 ML UDL TUBE SCH ×6 (02:33→20:30)
[2017-12-08] MEDS: LORazepam 2 MG/ML INJ IVP PRN ×3 (02:35→21:10)
[2017-12-08] MEDS: VANCOMYCIN 1.25 GM in NS 250 ML IV SCH ×2 (04:31→14:52)
[2017-12-08] MEDS ORDERED: NON-FORMULARY NEW DRUG TP SCH (09:00)
[2017-12-08] MEDS: HYDROmorphone HCL/NS 0.5 MG/ML SYR IVP PRN ×3 (09:47→18:13)
[2017-12-08] MEDS: PREGABALIN 100 MG CAP TUBE SCH ×3 (09:52→20:30)
[2017-12-08] MEDS: buPROPion 75 MG TAB TUBE SCH ×2 (09:52→20:31)
[2017-12-08] MEDS: VENLAFAXINE HCL 37.5 MG TAB TUBE SCH ×2 (09:52→20:30)
[2017-12-08] MEDS: ENOXAPARIN 40 MG/0.4 ML SYR SC SCH (09:53)
[2017-12-08] MEDS: PANTOPRAZOLE SODIUM 40 MG VIAL IVP SCH (09:53)
[2017-12-08] MEDS: SALONPAS TP SCH ×2 (10:09→10:16)
[2017-12-08] MEDS: LIDOCAINE 4%/MENTHOL 1% PATCH TD SCH (10:09)
--- NOTE | 2017-12-08 10:33 | HOSPPROG ---
Hospitalist Progress Note Assessment/Plan: Patient is a 71-year-old female who presented the emergency room with abdominal pain as well as nausea. She was transferred to the ICU because of aspiration pneumonia. It was noted that she had gastric outlet obstruction due to a duodenal mass. 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 She slowly improved. She continues to have an NG in place. And is also on TPN. The plan is for her to go to surgery in the next few days as her pneumonia resolves. 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 -plan is for surgery once her respiratory status improves (whipple vs gastric emptying procedure) -likely next week * Malnutrition due to the GOO -on TPN, have added normal saline for her fluids to equal 100 mls an hour * pneumonia -aspiration -she is on Unasyn and Vancomycin -lungs are improved but diminished -Lasix helped her lung status, will give her duonebs *hypokalemia -improved *left sided rib pain -chronic, better * acute hypoxemic respiratory failure -multifactorial -long hx of smoking and has pna * anemia -has been transfused a total of 3 units of packed red blood cells -continue close monitoring. Hemoglobin has been stable * depression and anxiety - Wellbutrin and Effexor -Ativan p.r.n. * nicotine dependence -patch -hx of extensive smoking for many years * chronic pain -usually on tramadol for this *dvt prophylaxis: LMWH * plan. add duonebs, encouraged the patient to work on IS, lung sounds are much improved and she should be stronger for surgery next week Subjective: Sara cont to have some left sided rib pain. Objective: Vital Signs Temp Pulse Resp BP Pulse Ox 36.7 C 93 18 111/54 L 91 L 12/08/17 08:00 12/08/17 08:00 12/08/17 08:00 12/08/17 08:00 12/08/17 08:00 Laboratory Results 12/07/17 09:37 12/08/17 04:20 12/07/17 12/08/17 12/09/17 05:59 05:59 05:59 Intake Total 0 3173 Output Total 1400 850 Balance -1400 2323 PT 14.7 SEC (12.0-15.0) 12/06/17 04:40 INR 1.13 (0.83-1.16) 12/06/17 04:40 - Physical Exam Constitutional: chronically ill appearing, No not in pain Eyes: PERRL Ears, Nose, Mouth, Throat: hearing normal Cardiovascular: regular rate and rhythym Respiratory: no respiratory distress, reduced air movement Gastrointestinal: No normoactive bowel sounds (few bowel sound) Skin: warm Musculoskeletal: generalized weakness Neurologic: AAOx3 Psychiatric: interacting appropriately ICD10 Worksheet Patient Problems: Problems Problem Status Onset Dehydration Acute Vomiting Acute Diarrhea Acute
[2017-12-08] MEDS: IPRATROPIUM/ALBUTEROL 3 ML DEYVIAL IH SCH ×2 (11:44→17:33)
[2017-12-08] MEDS: traMADol 50 MG TAB TUBE PRN ×3 (11:52→20:30)
--- NOTE | 2017-12-08 12:12 | ASMTCMCOM ---
CM Note CM Note Notes: Received call from Raul at [facility] regarding insurance coverage for rehab. Pt has Medicare part B only so it does not cover SNF, she also has BCBS but they will not act as primary ins. Therefore, pt will need to "self pay" for room and board and bill therapies to Medicare of which she will be responsible for 20% of bill (Medicare pays for 80%). Room and board would by $370 for shared bathroom or $450 for private room per day. Furthermore, pt will be required to pay for 30 days up front. CM to discuss with [employer], pt likely to have surgery this week. DC Plan: TBD Date Signed: 12/08/2017 12:11 PM Electronically Signed By:Natividad Pena RN
--- NOTE | 2017-12-08 12:29 | SOAPPROG ---
SOAP Progress Note Assessment/Plan: Assessment/Plan: 71 Y F diarrhea last week, N/V over weekend. Free air on CT. Nonsurgical abdomen on exam. Distended stomach, poor emptying. 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 Aspiration PNA. No major changes overnight. C/o chronic flank pain. Medicine addressing this. Appreciate their input and care. Probable whipple vs gastric emptying procedure for likely pancreatic CA once more medically stable. Personally reviewed chest CT and xrays with Dr. Navarrete earlier yesterday. Would like better clearing of lungs from her PNA before moving forward with such a potentially large surgery. Possibly later this week or early next week. CA 19-9> 4000. Continue NGT. Continue TPN. S: Sleeping. O: Sleeping comfortably. Awakened patient but told her I can come back. 12/08/17 12:27 Objective: Vital Signs Temp Pulse Resp BP Pulse Ox 36.7 C 93 18 111/54 L 91 L 12/08/17 08:00 12/08/17 08:00 12/08/17 08:00 12/08/17 08:00 12/08/17 08:00 Laboratory Results 12/07/17 09:37 12/08/17 04:20 12/07/17 12/08/17 12/09/17 05:59 05:59 05:59 Intake Total 0 3173 Output Total 1400 850 Balance -1400 2323 PT 14.7 SEC (12.0-15.0) 12/06/17 04:40 INR 1.13 (0.83-1.16) 12/06/17 04:40 ICD10 Worksheet Patient Problems: Problems Problem Status Onset Dehydration Acute Vomiting Acute Diarrhea Acute
[2017-12-08] MEDS: PHENOL 177 ML THROAT SPRAY PO PRN (13:11)
[2017-12-08] MEDS: TPN 1 EA BAG IV SCH (20:31)
[2017-12-08] MEDS: PATCH REMOVAL 1 EA PATCH TD SCH (21:13)
[2017-12-09] MEDS: IPRATROPIUM/ALBUTEROL 3 ML DEYVIAL IH SCH ×5 (00:06→22:08)
[2017-12-09] MEDS: AMPICILLIN/SULBACTAM 3 GM VIAL IV SCH ×2 (00:18→05:40)
[2017-12-09] MEDS: HYDROmorphone HCL/NS 0.5 MG/ML SYR IVP PRN ×5 (00:19→23:24)
[2017-12-09] MEDS ORDERED: LORazepam 0.5 MG TAB ONE (03:05)
[2017-12-09] MEDS: guaiFENesin 200 MG/10 ML UDL TUBE SCH ×6 (03:10→21:47)
[2017-12-09] MEDS: traMADol 50 MG TAB TUBE PRN ×5 (03:11→21:42)
[2017-12-09] MEDS: VANCOMYCIN 1.25 GM in NS 250 ML IV SCH (03:11)
[2017-12-09] MEDS: LORazepam 2 MG/ML INJ IVP PRN ×4 (03:12→19:42)
[2017-12-09 06:32] LABS: PLATELET COUNT 611 10^3/uL (150-400)
--- NOTE | 2017-12-09 09:01 | HOSPPROG ---
Hospitalist Progress Note Assessment/Plan: Patient is a 71-year-old female who presented the emergency room with abdominal pain as well as nausea. She was transferred to the ICU because of aspiration pneumonia. It was noted that she had gastric outlet obstruction due to a duodenal mass. 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 She slowly improved. She continues to have an NG in place. And is also on TPN. The plan is for her to go to surgery in the next few days as her pneumonia resolves. 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 -plan is for surgery once her respiratory status improves (whipple vs gastric emptying procedure) -likely next week * Malnutrition due to the GOO -on TPN, have added normal saline for her fluids to equal 100 mls an hour * pneumonia -aspiration -lungs are improved but diminished -Lasix helped her lung status, will give her duonebs -she has had a total of 14 days of abx (Ertapenem x 5 days and 9 days of Unasyn and Vancomycin) -will dc her abx and monitor her lung status/ she was evaluated by pulmonology while in ICU and they noted she is ready for surgery *hypokalemia -improved *left sided rib pain -chronic, better * acute hypoxemic respiratory failure -multifactorial -long hx of smoking and has pna * anemia -has been transfused a total of 3 units of packed red blood cells -continue close monitoring. Hemoglobin has been stable * depression and anxiety - Wellbutrin and Effexor -Ativan p.r.n. * nicotine dependence -patch -hx of extensive smoking for many years * chronic pain -usually on tramadol for this *dvt prophylaxis: LMWH * plan. dc IV abx, allow for periods of rest (will ask for no vital signs at night to allow her to get adequate rest prior to surgery), will get a repeat chest xray tomorrow to evaluate her lungs. Subjective: Sara is exhausted, wants some time to sleep. Objective: Vital Signs Temp Pulse Resp BP Pulse Ox 36.7 C 83 16 105/58 L 92 12/09/17 07:12 12/09/17 07:12 12/09/17 07:12 12/09/17 07:12 12/09/17 07:12 Laboratory Results 12/09/17 06:00 12/09/17 06:00 12/08/17 12/09/17 12/10/17 05:59 05:59 05:59 Intake Total 3173 1490 Output Total 850 2300 Balance 2323 -810 PT 14.7 SEC (12.0-15.0) 12/06/17 04:40 INR 1.13 (0.83-1.16) 12/06/17 04:40 - Physical Exam Constitutional: not in pain, chronically ill appearing Eyes: PERRL Ears, Nose, Mouth, Throat: hearing normal Cardiovascular: regular rate and rhythym Respiratory: no respiratory distress, reduced air movement Gastrointestinal: normoactive bowel sounds Skin: warm, No normal color (pale) Musculoskeletal: generalized weakness Neurologic: AAOx3 Psychiatric: interacting appropriately ICD10 Worksheet Patient Problems: Problems Problem Status Onset Dehydration Acute Vomiting Acute Diarrhea Acute
[2017-12-09] MEDS: buPROPion 75 MG TAB TUBE SCH ×2 (09:48→21:41)
[2017-12-09] MEDS: ENOXAPARIN 40 MG/0.4 ML SYR SC SCH (09:48)
[2017-12-09] MEDS: PANTOPRAZOLE SODIUM 40 MG VIAL IVP SCH (09:48)
[2017-12-09] MEDS: VENLAFAXINE HCL 37.5 MG TAB TUBE SCH ×2 (09:48→21:42)
[2017-12-09] MEDS: PREGABALIN 100 MG CAP TUBE SCH ×3 (10:03→21:42)
[2017-12-09] MEDS: LIDOCAINE 4%/MENTHOL 1% PATCH TD SCH (11:48)
[2017-12-09] MEDS: SALONPAS TP SCH (11:49)
[2017-12-09] MEDS: NS 1,000 ML IV SCH (14:16)
[2017-12-09] MEDS ORDERED: LORazepam 0.5 MG TAB PO ONE (14:25)
--- NOTE | 2017-12-09 16:17 | PDINTPN ---
Enterprise Business Architect Progress Note Assessment/Plan: Assessment: 71 F admitted 11/23 with intractable N/V, complicated by aspiration event 11/24 following esophagram and subsequently found to have esopageal and duodenal masses on EGD (path pending). She had a history of IBS, pancreatic insufficiency. A CT abdo/pelvis revealed a distended, fluid-filled stomach but no masses, but an EGD showed a large mass at the GE junction and a second mass at the duodenum and biopsies were taken. No other masses were noted on an abdominal MRI 11/27. Her pxygen requirement has been creeping up the last feww days as well, up to 10-15 lpm simple mask associated with a sinus tachycardia. 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 Considering surgery. Discussed case with Dr. Navarrete and appropriately waiting for pulmonary status to improvement prior to OR. * Aspiration pneumonia- additional aspiration event 12/02 resulted in worsening infiltrates on CXR despite no change in O2 requirement. She has also been getting IVF at 75/hr which were stopped 12/03 and she received low dose lasix. Now NPO. Unasyn started 12/01, stopped today. O2 down to 2 lpm Plan: OK for OR from pulmonary perspective. In the meantime, would maximize activity. 12/09/17 16:15 Subjective: Feels better, minimal shortness of breath. Mild cough without significant sputum. Objective: Vital Signs Temp Pulse Resp BP Pulse Ox 36.6 C 94 16 116/57 L 94 12/09/17 16:00 12/09/17 16:00 12/09/17 16:00 12/09/17 16:00 12/09/17 16:00 Laboratory Results 12/09/17 06:00 12/09/17 06:00 12/08/17 12/09/17 12/10/17 05:59 05:59 05:59 Intake Total 3173 1490 Output Total 850 2300 Balance 2323 -810 PT 14.7 SEC (12.0-15.0) 12/06/17 04:40 INR 1.13 (0.83-1.16) 12/06/17 04:40 Physical Exam - Physical Exam General Appearance: alert, no apparent distress EENT: normal ENT inspection Neck: normal inspection Respiratory: lungs clear, normal breath sounds Cardiac/Chest: regular rate, rhythm, No edema Abdomen: normal bowel sounds, non-tender Skin: normal color, warm/dry Extremities: normal inspection Neuro/Psych: alert, normal mood/affect, oriented x 3 ICD10 Worksheet Patient Problems: Problems Problem Status Onset Dehydration Acute Vomiting Acute Diarrhea Acute
--- NOTE | 2017-12-09 18:07 | SOAPPROG ---
SOAP Progress Note Assessment/Plan: Assessment: 71 Y F diarrhea last week, N/V over weekend. Free air on CT. Nonsurgical abdomen on exam. Distended stomach, poor emptying. 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 Aspiration PNA. S: Doing relatively well today. O: Alert Afebrile Abdomen soft, nontender. Plan: Will need surgery at some point, likely next Wednesday or Wednesday. Whipple vs. gastric emptying procedure. Continue NG tube and TPN for nutrition. 12/09/17 18:04 12/09/17 18:07 Objective: Vital Signs Temp Pulse Resp BP Pulse Ox 36.6 C 94 16 116/57 L 94 12/09/17 16:00 12/09/17 16:00 12/09/17 16:00 12/09/17 16:00 12/09/17 16:00 Laboratory Results 12/09/17 06:00 12/09/17 06:00 12/08/17 12/09/17 12/10/17 05:59 05:59 05:59 Intake Total 3173 1490 Output Total 850 2300 Balance 2323 -810 PT 14.7 SEC (12.0-15.0) 12/06/17 04:40 INR 1.13 (0.83-1.16) 12/06/17 04:40 ICD10 Worksheet Patient Problems: Problems Problem Status Onset Dehydration Acute Vomiting Acute Diarrhea Acute
[2017-12-09] MEDS: PATCH REMOVAL 1 EA PATCH TD SCH (21:47)
[2017-12-09] MEDS: TPN 1 EA BAG IV SCH (22:06)
[2017-12-10] MEDS: guaiFENesin 200 MG/10 ML UDL TUBE SCH ×6 (02:33→23:24)
[2017-12-10] MEDS: traMADol 50 MG TAB TUBE PRN ×3 (02:33→12:21)
[2017-12-10] MEDS: IPRATROPIUM/ALBUTEROL 3 ML DEYVIAL IH SCH ×3 (06:52→16:34)
[2017-12-10] MEDS: buPROPion 75 MG TAB TUBE SCH ×2 (09:14→21:39)
[2017-12-10] MEDS: LIDOCAINE 4%/MENTHOL 1% PATCH TD SCH (09:14)
[2017-12-10] MEDS: VENLAFAXINE HCL 37.5 MG TAB TUBE SCH ×2 (09:14→21:39)
[2017-12-10] MEDS: PREGABALIN 100 MG CAP TUBE SCH ×3 (09:14→21:39)
[2017-12-10] MEDS: ENOXAPARIN 40 MG/0.4 ML SYR SC SCH (09:14)
[2017-12-10] MEDS: SALONPAS TP SCH (09:26)
[2017-12-10] MEDS: LORazepam 2 MG/ML INJ IVP PRN ×2 (10:14→21:06)
[2017-12-10] MEDS: PANTOPRAZOLE SODIUM 40 MG VIAL IVP SCH (10:19)
--- NOTE | 2017-12-10 12:14 | HOSPPROG ---
Hospitalist Progress Note Assessment/Plan: Patient is a 71-year-old female who presented the emergency room with abdominal pain as well as nausea. She was transferred to the ICU because of aspiration pneumonia. It was noted that she had gastric outlet obstruction due to a duodenal mass. 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 She slowly improved. She continues to have an NG in place. And is also on TPN. The plan is for her to go to surgery in the next few days. 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 Hemoglobin has been stable * depression and anxiety - Wellbutrin and Effexor -Ativan p.r.n. * nicotine dependence -patch -hx of extensive smoking for many years * chronic pain -usually on tramadol for this *dvt prophylaxis: LMWH * plan. appreciate Dr Melchor seeing Sara. She is hoping surgery is on Wednesday. Subjective: Sara is feeling well, says her lungs feel much better today. Objective: Vital Signs Temp Pulse Resp BP Pulse Ox 36.3 C 93 18 110/55 L 93 12/10/17 07:20 12/10/17 10:36 12/10/17 10:36 12/10/17 07:20 12/10/17 10:36 Laboratory Results 12/09/17 06:00 12/09/17 06:00 12/09/17 12/10/17 12/11/17 05:59 05:59 05:59 Intake Total 1490 2989 Output Total 2300 1200 Balance -810 1789 PT 14.7 SEC (12.0-15.0) 12/06/17 04:40 INR 1.13 (0.83-1.16) 12/06/17 04:40 - Physical Exam Constitutional: no apparent distress, chronically ill appearing Eyes: PERRL Ears, Nose, Mouth, Throat: hearing normal Cardiovascular: regular rate and rhythym Respiratory: no respiratory distress, rhonchi (few on left base) Gastrointestinal: soft, non-tender abdomen Skin: warm Musculoskeletal: generalized weakness Neurologic: AAOx3 Psychiatric: interacting appropriately ICD10 Worksheet Patient Problems: Problems Problem Status Onset Dehydration Acute Vomiting Acute Diarrhea Acute
[2017-12-10] MEDS: HYDROmorphone HCL/NS 0.5 MG/ML SYR IVP PRN ×3 (13:01→20:37)
--- NOTE | 2017-12-10 13:31 | SOAPPROG ---
SOAP Progress Note Assessment/Plan: Assessment: 71 Y F diarrhea last week, N/V over weekend. Free air on CT. Nonsurgical abdomen on exam. Distended stomach, poor emptying. 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 Aspiration PNA. S: Doing relatively well today. O: Alert Afebrile Abdomen soft, nontender. Plan: Will need surgery at some point, likely next Wednesday or Wednesday. Whipple vs. gastric emptying procedure. Continue NG tube and TPN for nutrition. 12/09/17 18:04 12/10/17 13:24 Just waking up when we saw her. She is about the same as yesterday. Chest xray not improving as quickly as we would like, but given her need for surgery sooner rather than later, we will likely schedule surgery for sometime early next week. pt seen and evaluated with Dr. Navarrete. Objective: Vital Signs Temp Pulse Resp BP Pulse Ox 36.3 C 93 18 110/55 L 93 12/10/17 07:20 12/10/17 10:36 12/10/17 10:36 12/10/17 07:20 12/10/17 10:36 Laboratory Results 12/09/17 06:00 12/09/17 06:00 12/09/17 12/10/17 12/11/17 05:59 05:59 05:59 Intake Total 1490 2989 Output Total 2300 1200 Balance -810 1789 PT 14.7 SEC (12.0-15.0) 12/06/17 04:40 INR 1.13 (0.83-1.16) 12/06/17 04:40 ICD10 Worksheet Patient Problems: Problems Problem Status Onset Dehydration Acute Vomiting Acute Diarrhea Acute
--- NOTE | 2017-12-10 17:40 | ASMTCMCOM ---
CM Note CM Note Notes: Spoke w/pt and sister Sera ([phone]) re; dc poc. Pt has Medicare part B only plus a supplemental, no rehab coverage, would have to self pay. 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 Pt will have surgery likely Wednesday, if rehab is not available, the goal is to get pt home with homecare as long as she is medically stable and it is a safe discharge. DC Plan: TBD Date Signed: 12/10/2017 05:40 PM Electronically Signed By:Natividad Pena RN
[2017-12-10] MEDS: TPN 1 EA BAG IV SCH (21:39)
[2017-12-10] MEDS: PATCH REMOVAL 1 EA PATCH TD SCH (21:40)
[2017-12-11] MEDS: ONDANSETRON 4 MG/2 ML VIAL IVP PRN (00:03)
[2017-12-11] MEDS: guaiFENesin 200 MG/10 ML UDL TUBE SCH ×6 (01:02→21:57)
[2017-12-11] MEDS: HYDROmorphone HCL/NS 0.5 MG/ML SYR IVP PRN ×4 (01:02→21:58)
[2017-12-11] MEDS: IPRATROPIUM/ALBUTEROL 3 ML DEYVIAL IH SCH ×3 (02:10→09:39)
--- NOTE | 2017-12-11 07:44 | HOSPPROG ---
Hospitalist Progress Note Assessment/Plan: Patient is a 71-year-old female who presented the emergency room with abdominal pain as well as nausea/vomiting. She was transferred to the ICU because of aspiration pneumonia. It was noted that she had gastric outlet obstruction due to a duodenal mass. 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 She slowly improved. She continues to have an NG in place. And is also on TPN. The plan is for her to go to surgery in the next few days for Whipple versus gastric emptying surgery. Reviewed surgery notes, labs, imaging including CXR/echo. This is my first encounter with patient. 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 Navarrete * Malnutrition due to the GOO -on TPN and normal saline for her fluids to equal 100 mls an hour * pneumonia -aspiration x 2 events -much improved/ on 2 liters -she has completed a total of 14 days of abx (Ertapenem x 5 days and 9 days of Unasyn and Vancomycin) -breathing is stable and so will order prn nebs at this point *hypokalemia -stable with no repeat check since 12/09 *left sided rib pain -chronic, better * acute hypoxemic respiratory failure -multifactorial -long hx of smoking and had pna -CXR with upper lobe opacities and small madya pleural effusions 12/09 -echo normal EF -O2 needs stable * anemia -has been transfused a total of 3 units of packed red blood cells -continue close monitoring. Hemoglobin has been stable at 9.7 on 12/09 check * depression and anxiety - Wellbutrin and Effexor -Ativan p.r.n. * nicotine dependence -patch prn -hx of extensive smoking for many years * chronic pain -usually on tramadol for this *dvt prophylaxis: LMWH * plan. She is hoping surgery is on Wednesday. Objective: Vital Signs Temp Pulse Resp BP Pulse Ox 98.0 F 75 16 109/46 L 91 L 12/11/17 07:33 12/11/17 07:33 12/11/17 07:33 12/11/17 07:33 12/11/17 07:33 Laboratory Results 12/09/17 06:00 12/09/17 06:00 12/10/17 12/11/17 12/12/17 05:59 05:59 05:59 Intake Total 2989 888 Output Total 1200 1650 Balance 1789 -762 PT 14.7 SEC (12.0-15.0) 12/06/17 04:40 INR 1.13 (0.83-1.16) 12/06/17 04:40 - Physical Exam Constitutional: no apparent distress Eyes: anicteric sclera Ears, Nose, Mouth, Throat: moist mucous membranes Cardiovascular: regular rate and rhythym Respiratory: no rales or rhonchi Gastrointestinal: normoactive bowel sounds, soft, non-tender abdomen Psychiatric: interacting appropriately ICD10 Worksheet Patient Problems: Problems Problem Status Onset Dehydration Acute Vomiting Acute Diarrhea Acute
[2017-12-11] MEDS: LORazepam 2 MG/ML INJ IVP PRN ×2 (08:00→18:24)
[2017-12-11] MEDS: traMADol 50 MG TAB TUBE PRN ×2 (08:00→18:21)
[2017-12-11] MEDS: NS 1,000 ML IV SCH (08:01)
[2017-12-11] MEDS: LIDOCAINE 4%/MENTHOL 1% PATCH TD SCH (09:12)
[2017-12-11] MEDS: SALONPAS TP SCH (09:12)
[2017-12-11] MEDS: buPROPion 75 MG TAB TUBE SCH ×2 (10:18→21:58)
[2017-12-11] MEDS: VENLAFAXINE HCL 37.5 MG TAB TUBE SCH ×2 (10:18→21:58)
[2017-12-11] MEDS: ENOXAPARIN 40 MG/0.4 ML SYR SC SCH (10:18)
[2017-12-11] MEDS: PREGABALIN 100 MG CAP TUBE SCH ×3 (10:18→21:58)
[2017-12-11] MEDS: PANTOPRAZOLE SODIUM 40 MG VIAL IVP SCH (10:18)
--- NOTE | 2017-12-11 10:22 | SOAPPROG ---
SOAP Progress Note Assessment/Plan: Assessment/Plan: 71 Y F diarrhea last week, N/V over weekend. Free air on CT. Nonsurgical abdomen on exam. Distended stomach, poor emptying. 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 Aspiration PNA. Whipple vs gastric emptying procedure for likely pancreatic CA sometime this week. Exact timing uncertain--will need Dr. Navarrete' input. Lungs are probably optimized at this point after her aspiration x 2 w PNA. CA 19-9> 4000. Continue NGT. Continue TPN. S: Sleeping. Easily arousable. Eager to move forward. Denies N/V. O: alert, nad ctab rrr abd soft, +BS 12/11/17 10:19 Objective: Vital Signs Temp Pulse Resp BP Pulse Ox 36.7 C 84 16 109/46 L 94 12/11/17 07:33 12/11/17 09:39 12/11/17 09:39 12/11/17 07:33 12/11/17 09:39 Laboratory Results 12/09/17 06:00 12/09/17 06:00 12/10/17 12/11/17 12/12/17 05:59 05:59 05:59 Intake Total 2989 888 Output Total 1200 1650 Balance 1789 -762 PT 14.7 SEC (12.0-15.0) 12/06/17 04:40 INR 1.13 (0.83-1.16) 12/06/17 04:40 ICD10 Worksheet Patient Problems: Problems Problem Status Onset Dehydration Acute Vomiting Acute Diarrhea Acute
[2017-12-11] MEDS ORDERED: IPRATROPIUM/ALBUTEROL 3 ML DEYVIAL IH PRN (14:25)
[2017-12-11] MEDS: TPN 1 EA BAG IV SCH (21:57)
[2017-12-11] MEDS: PATCH REMOVAL 1 EA PATCH TD SCH (21:58)
[2017-12-12] MEDS: LORazepam 2 MG/ML INJ IVP PRN ×3 (01:45→21:19)
[2017-12-12] MEDS: guaiFENesin 200 MG/10 ML UDL TUBE SCH ×7 (01:45→22:39)
[2017-12-12] MEDS: traMADol 50 MG TAB TUBE PRN ×2 (02:50→14:33)
[2017-12-12] MEDS: PROMETHAZINE HCL 25 MG/ML INJ IVP PRN (02:50)
[2017-12-12] MEDS: PANTOPRAZOLE SODIUM 40 MG VIAL IVP SCH (10:07)
[2017-12-12] MEDS: buPROPion 75 MG TAB TUBE SCH ×2 (10:31→21:22)
[2017-12-12] MEDS: HYDROmorphone HCL/NS 0.5 MG/ML SYR IVP PRN ×3 (10:31→21:19)
[2017-12-12] MEDS: ENOXAPARIN 40 MG/0.4 ML SYR SC SCH (10:31)
[2017-12-12] MEDS: PREGABALIN 100 MG CAP TUBE SCH ×3 (10:32→21:22)
[2017-12-12] MEDS: VENLAFAXINE HCL 37.5 MG TAB TUBE SCH ×2 (10:32→21:22)
[2017-12-12] MEDS: SALONPAS TP SCH (10:32)
[2017-12-12] MEDS: LIDOCAINE 4%/MENTHOL 1% PATCH TD SCH (10:32)
--- NOTE | 2017-12-12 12:55 | SOAPPROG ---
SOAP Progress Note Assessment/Plan: Assessment/Plan: 71 Y F diarrhea last week, N/V over weekend. Free air on CT. Nonsurgical abdomen on exam. Distended stomach, poor emptying. 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 Aspiration PNA. Surgery tentatively scheduled for tomorrow pending Dr. Navarrete' getting coverage for the trauma service. Whipple vs gastric emptying procedure for likely pancreatic/ampullary CA Lungs are probably optimized at this point after her aspiration x 2 w PNA. CA 19-9> 4000. Continue NGT. Continue TPN. S: Awake, no pain. Discussed surgical expectations, risks, options. O: alert, nad ctab rrr abd soft, +BS 12/12/17 12:53 Objective: Vital Signs Temp Pulse Resp BP Pulse Ox 36.8 C 78 16 114/50 L 91 L 12/12/17 07:23 12/12/17 07:23 12/12/17 07:23 12/12/17 07:23 12/12/17 07:23 Laboratory Results 12/09/17 06:00 12/09/17 06:00 12/11/17 12/12/17 12/13/17 05:59 05:59 05:59 Intake Total 888 2336 Output Total 1650 1600 Balance -762 736 PT 14.7 SEC (12.0-15.0) 12/06/17 04:40 INR 1.13 (0.83-1.16) 12/06/17 04:40 ICD10 Worksheet Patient Problems: Problems Problem Status Onset Dehydration Acute Vomiting Acute Diarrhea Acute
--- NOTE | 2017-12-12 13:07 | HOSPPROG ---
Hospitalist Progress Note Assessment/Plan: Patient is a 71-year-old female who presented the emergency room with abdominal pain as well as nausea/vomiting. She was transferred to the ICU because of aspiration pneumonia. It was noted that she had gastric outlet obstruction due to a duodenal mass. 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 She slowly improved. She continues to have an NG in place. And is also on TPN. The plan is for her to go to surgery in the next few days for Whipple versus gastric emptying surgery. 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 Navarrete * Malnutrition due to the GOO -on TPN and normal saline for her fluids to equal 100 mls an hour * pneumonia -aspiration x 2 events -much improved/ on 2 liters -she has completed a total of 14 days of abx (Ertapenem x 5 days and 9 days of Unasyn and Vancomycin) -breathing is stable and so will order prn nebs at this point *hypokalemia -stable with no repeat check since 12/09 *left sided rib pain -chronic, better * acute hypoxemic respiratory failure -multifactorial -long hx of smoking and had pna -CXR with upper lobe opacities and small mayda pleural effusions 12/09 -echo normal EF -O2 needs stable * anemia -has been transfused a total of 3 units of packed red blood cells -continue close monitoring. Hemoglobin has been stable at 9.7 on 12/09 check * depression and anxiety - Wellbutrin and Effexor -Ativan p.r.n. * nicotine dependence -patch prn -hx of extensive smoking for many years * chronic pain -usually on tramadol for this -she requests increase in Dilaudid be allowed at the 3-hr dosing interval *dvt prophylaxis: LMWH * plan. She is hoping surgery is on Wednesday. Subjective: Reports L sided back and abdominal area pain. Objective: Vital Signs Temp Pulse Resp BP Pulse Ox 98.2 F 78 16 114/50 L 91 L 12/12/17 07:23 12/12/17 07:23 12/12/17 07:23 12/12/17 07:23 12/12/17 07:23 Laboratory Results 12/09/17 06:00 12/09/17 06:00 12/11/17 12/12/17 12/13/17 05:59 05:59 05:59 Intake Total 888 2336 Output Total 1650 1600 Balance -762 736 PT 14.7 SEC (12.0-15.0) 12/06/17 04:40 INR 1.13 (0.83-1.16) 12/06/17 04:40 - Physical Exam Constitutional: no apparent distress Eyes: anicteric sclera Ears, Nose, Mouth, Throat: moist mucous membranes Cardiovascular: regular rate and rhythym, no murmur, rub, or gallop Respiratory: no respiratory distress, no rales or rhonchi Gastrointestinal: soft, non-tender abdomen Skin: warm Neurologic: AAOx3 Psychiatric: interacting appropriately ICD10 Worksheet Patient Problems: Problems Problem Status Onset Dehydration Acute Vomiting Acute Diarrhea Acute
[2017-12-12] MEDS ORDERED: cefOXitin SODIUM 2 GM in STERILE WATER INJ 21 ML IV ONE (13:35)
[2017-12-12] MEDS: PATCH REMOVAL 1 EA PATCH TD SCH (21:40)
[2017-12-12] MEDS: TPN 1 EA BAG IV SCH (21:58)
[2017-12-13] MEDS: HYDROmorphone HCL/NS 0.5 MG/ML SYR IVP PRN (03:15)
[2017-12-13] MEDS: LORazepam 2 MG/ML INJ IVP PRN ×2 (03:16→08:42)
[2017-12-13] MEDS ORDERED: cefOXitin SODIUM 2 GM in STERILE WATER INJ 21 ML IV ONE (07:00)
[2017-12-13] MEDS ORDERED: BUPIVACAINE 0.5% 30 ML SDV ONE (07:37)
[2017-12-13] MEDS ORDERED: METHYLENE BLUE 0.5% 50 MG/10 ML AMP ONE (07:37)
[2017-12-13] MEDS ORDERED: MINERAL OIL 10 ML VIAL ONE (07:37)
--- NOTE | 2017-12-13 08:23 | HOSPPROG ---
Hospitalist Progress Note Assessment/Plan: Patient is a 71-year-old female who presented the emergency room with abdominal pain as well as nausea. She was transferred to the ICU because of aspiration pneumonia. It was noted that she had gastric outlet obstruction due to a duodenal mass. 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 She slowly improved. She continues to have an NG in place. And is also on TPN. 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 Hemoglobin has been stable * depression and anxiety - Wellbutrin and Effexor -Ativan p.r.n. * nicotine dependence -patch -hx of extensive smoking for many years * chronic pain -usually on tramadol for this *dvt prophylaxis: LMWH * plan. OR today, Sara feels ready for surgery. Subjective: Sara has less pain on her left side area. Objective: Vital Signs Temp Pulse Resp BP Pulse Ox 37.1 C 90 16 94/59 L 91 L 12/13/17 08:00 12/13/17 08:00 12/13/17 08:00 12/13/17 08:00 12/13/17 08:00 Laboratory Results 12/09/17 06:00 12/09/17 06:00 12/12/17 12/13/17 12/14/17 05:59 05:59 05:59 Intake Total 2336 1224 Output Total 1600 3275 100 Balance 6 -2050 -100 PT 14.7 SEC (12.0-15.0) 12/06/17 04:40 INR 1.13 (0.83-1.16) 12/06/17 04:40 - Physical Exam Constitutional: no apparent distress, appears nourished Eyes: PERRL Ears, Nose, Mouth, Throat: hearing normal Cardiovascular: regular rate and rhythym, no murmur, rub, or gallop Respiratory: no respiratory distress, reduced air movement (but CTA) Gastrointestinal: normoactive bowel sounds, soft, non-tender abdomen Skin: warm, No normal color (pale) Musculoskeletal: generalized weakness Neurologic: AAOx3 Psychiatric: interacting appropriately ICD10 Worksheet Patient Problems: Problems Problem Status Onset Dehydration Acute Vomiting Acute Diarrhea Acute
--- NOTE | 2017-12-13 08:36 | PDANEPAE ---
ANE History of Present Illness 71 year old female who presented to ED on 11-22-17 with vomiting and diarrhea x 3 days. Work-up revealed esophageal tumor and ampulla tumor. Patient to OR for whipple procedure. PMHx includes, IBS, Anxiety & Depression, chronic pain, smker (nicotine dependence) and recent aspiration pneumonia s/p antibiotics x 14days. ANE Past Medical History - Cardiovascular History Hx Hypertension: No Hx Arrhythmias: No Hx Chest Pain: No Hx Coronary Artery / Peripheral Vascular Disease: No Hx CHF / Valvular Disease: No Hx Palpitations: No - Pulmonary History Hx Oxygen in Use at Home: No Hx Sleep Apnea: No Sleep Apnea Screening Result - Last Documented: Positive Pulmonary History Comment: Patient active smoker. In addition, patient with recent aspiration pneumonia s/p antibiotics. - Endocrine History Hx Diabetes: No Hypothyroid: No Hyperthyroid: No Obesity: no - Renal History Hx Renal Disorders: No - Liver History Hx Hepatic Disorders: No - Neurological & Psychiatric Hx Hx Neurological and Psychiatric Disorders: Yes Neurological / Psychiatric History Comment: Anxiety and Depression - Cancer History Cancer History Comment: Esophageal tumor causing gastric outlet obstruction. Ampulla of [place]ova mass. - Congenital Disorder History Hx Congenital Disorders: No - GI History GERD: severe Hx Gastrointestinal Disorders: Yes Gastrointestinal History Comment: IBS. Esophageal mass. Duodenal mass - Chronic Pain History Chronic Pain: Yes ANE Review of Systems Review of Systems: - Exercise capacity Exercise capacity: <4 METS ANE Patient History - Allergies Allergies/Adverse Reactions: No Known Allergies Allergy (Verified 04/15/17 15:50) - Home Medications Home medications: home medication list seen and reviewed Home Medications: Lipase/Protease/Amylase [Zenpep Dr 25,000 Units Capsule] 2 each PO BID@ [Last Taken 3 Days Ago ~11/19/17] buPROPion XL [Wellbutrin Xl] 300 mg PO HS 03/29/17 [Last Taken 3 Days Ago ~11/19] Acetamn/Diphenhydramine 500/25 [Tylenol PM (*)] 1 each PO HS 11/22/17 [Last Taken 3 Days Ago ~11/19/17] Cholecalciferol Vit D3 [Vitamin D3 (*)] 1,000 units PO DAILY 11/22/17 [Last Taken 3 Days Ago ~11/19/17] Herbals/Supplements -Info Only 1 ea PO DAILY 11/22/17 [Last Taken 3 Days Ago ~] LORazepam [Ativan (*)] 1 mg PO TID PRN 11/22/17 [Last Taken 3 Days Ago ~11/19/17 ] Lipase/Protease/Amylase [Zenpep Dr 25,000 Units Capsule] 2 each PO AD 11/22/17 [ Last Taken 3 Days Ago ~11/19/17] Lipase/Protease/Amylase [Zenpep Dr 25,000 Units Capsule] 3 each PO DAILY18 11/22 [Last Taken 3 Days Ago ~11/19/17] Multivitamins [Multivitamin (*)] 1 each PO DAILY 11/22/17 [Last Taken 3 Days Ago ~11/19/17] Pregabalin [Lyrica 100mg (*)] 100 mg PO TID 11/22/17 [Last Taken 3 Days Ago ~05/31] Tizanidine HCl [Zanaflex] 4 mg PO HS 11/22/17 [Last Taken 3 Days Ago ~11/19/17] Venlafaxine Xr [Effexor Xr 75MG (*)] 75 mg PO HS 11/22/17 [Last Taken 3 Days Ago ~11/19/17] traMADol [Ultram 50 mg (*)] 50 mg PO TID PRN 11/22/17 [Last Taken 3 Days Ago ~] - NPO status NPO Status: no food or drink >8 hours NPO Since - Liquids (Date): 12/13/17 NPO Since - Liquids (Time): 00:00 NPO Since - Solids (Date): 12/03/17 NPO Since - Solids (Time): 08:01 - Anes Hx Anes Hx: no prior problems - Smoking Hx Smoking Status: Current every day smoker - Alcohol Use Alcohol Use: Occasionally ANE Labs/Vital Signs - Labs Result Diagrams: 12/09/17 06:00 12/09/17 06:00 - Vital Signs Vital Signs: reviewed preoperatively; see RN documention for details Blood Pressure: 94/59 Heart Rate: 90 Respiratory Rate: 16 O2 Sat (%): 91 Height: 167.64 cm Weight: 63.1 kg ANE Physical Exam - Airway Neck exam: FROM Mallampati Score: Class 1 Mouth exam: normal dental/mouth exam - Pulmonary Pulmonary: no respiratory distress - Cardiovascular Cardiovascular: regular rate and rhythym - ASA Status ASA Status: III ANE Anesthesia Plan Anesthesia Plan: general endotracheal anesthesia, epidural (epidural for pure post-op pain management) Lines/Monitors: arterial line (Possible arterial line. Possible central line.) Total IV Anesthesia: No
[2017-12-13] MEDS: PANTOPRAZOLE SODIUM 40 MG VIAL IVP SCH (08:43)
[2017-12-13] MEDS: LIDOCAINE 4%/MENTHOL 1% PATCH TD SCH (08:44)
--- NOTE | 2017-12-13 09:37 | ASMTCMCOM ---
CM Note CM Note Notes: CM spoke w/ KAREN Reynaga regarding d/c POC. Pt will most likely have surgery today. Pt will most likely be transferred to the ICU afterwards. Needs are TBD at this time. CM to follow. Plan: TBD Date Signed: 12/13/2017 09:36 AM Electronically Signed By:YAS Chavez
[2017-12-13] MEDS ORDERED: MIDAZOLAM 2 MG/2 ML VIAL IVP ONE (10:40)
[2017-12-13] MEDS ORDERED: LR 1,000 ML IV ONE (10:47)
[2017-12-13] MEDS ORDERED: PROPOFOL 200 MG/20 ML VIAL ONE (10:48)
[2017-12-13] MEDS ORDERED: fentaNYL 100 MCG/2 ML INJ ONE ×2 (10:48→12:47)
[2017-12-13] MEDS ORDERED: ONDANSETRON 4 MG/2 ML VIAL IVP PRN ×2 (12:26→13:33)
[2017-12-13] MEDS ORDERED: PROMETHAZINE HCL 25 MG/ML INJ IVP PRN (12:26)
[2017-12-13] MEDS ORDERED: LR 500 ML IV PRN (12:26)
[2017-12-13] MEDS ORDERED: fentaNYL 100 MCG/2 ML INJ IVP PRN (12:26)
[2017-12-13] MEDS ORDERED: PHENYLEPHRINE HCL 100 MCG/ML SYR IVP PRN (12:26)
[2017-12-13] MEDS ORDERED: HYDROmorphONE/DILAUDID 1 MG/ML INJ IVP PRN (12:26)
[2017-12-13] MEDS ORDERED: NALOXONE HCL 0.4 MG/ML INJ IVP PRN ×2 (12:26→13:33)
[2017-12-13] MEDS ORDERED: ONDANSETRON 4 MG/2 ML VIAL ONE (12:36)
[2017-12-13] MEDS ORDERED: SUGAMMADEX SODIUM 200 MG/2 ML VIAL IVP ONE (12:36)
[2017-12-13] MEDS ORDERED: ROCURONIUM 50 MG/5 ML VIAL ONE (12:36)
[2017-12-13] MEDS ORDERED: HYDROmorphONE/DILAUDID 2 MG/ML INJ ONE (13:21)
[2017-12-13] MEDS: HYDROmorphONE/DILAUDID 2 MG/ML INJ IVP PRN ×4 (13:23→14:04)
[2017-12-13] MEDS ORDERED: diphenhydrAMINE 25 MG CAP PO PRN (13:33)
[2017-12-13] MEDS ORDERED: fentaNYL 2MCG/ML&BUP 0.0625% in 100ML NS EP SCH (13:33)
[2017-12-13] MEDS ORDERED: NARCOTIC DRIP BAG-TOTAL ALL TYPES EP PRN (13:33)
--- NOTE | 2017-12-13 15:59 | POSTOPPROG ---
Post Op Note Date of Operation: 12/13/17 Surgeon: Ryder Navarrete Specimen Preparation Assistant: Deann Espana Anesthesiologist: Munir Bah Anesthesia: GET(General Endotracheal) Pre-op Diagnosis: gastric outlet obstruction, adenocarcinoma, possible ampullary Post-op Diagnosis: same, and carcinomatosis with omental and peritoneal implants. Indication: 71 Y F c N/V, gastric distention and obstruction. duodenal bx +CA Procedure: exploratory laparotomy, gastrojejunostomy, peritoneal and omental biopsies Findings: carcinomatosis, see post op dx. thick omentum. duodenum thick and immovable Inf/Abcess present in the surg proc area at time of surgery?: No EBL: Minimal Complications: none Specimen(s): multiple to pathology
[2017-12-13] MEDS: buPROPion 75 MG TAB TUBE SCH ×2 (16:55→21:08)
[2017-12-13] MEDS: guaiFENesin 200 MG/10 ML UDL TUBE SCH ×3 (16:56→21:10)
[2017-12-13] MEDS: SALONPAS TP SCH (16:58)
[2017-12-13] MEDS: PREGABALIN 100 MG CAP TUBE SCH ×3 (16:58→21:08)
[2017-12-13] MEDS: VENLAFAXINE HCL 37.5 MG TAB TUBE SCH ×2 (16:59→21:08)
[2017-12-13] MEDS: ENOXAPARIN 40 MG/0.4 ML SYR SC SCH (16:59)
[2017-12-13] MEDS: METOCLOPRAMIDE 10 MG/2 ML VIAL IVP SCH ×2 (17:20→23:29)
[2017-12-13] MEDS: ACETAMINOPHEN 325 MG TAB TUBE PRN (17:32)
[2017-12-13] MEDS: cefOXitin SODIUM 1 GM in STERILE WATER INJ 10.5 ML IV SCH ×2 (17:54→23:28)
--- NOTE | 2017-12-13 19:15 | POSTANESTH ---
Post Anesthetic Evaluation Cardiovascular Status: Normal, Stable, Similar to Pre-Op Cond Respiratory Status: Normal, Stable, Similar to Pre-op Cond. Level of Consciousness/Mental Status: Can Participate in Eval, Alert and Oriented Pain Control: Adequate, Prn Tx Ordered Nausea/Vomiting Control: Adequate, Prn Tx Ordered Complications Possibly Related to Anesthesia: None Noted (Patient with thoracic epidural. Likely pull within 1 day as surgery was significantly abreviated from planned surgery.)
[2017-12-13] MEDS ORDERED: TPN 1 EA BAG IV SCH (21:00)
[2017-12-13] MEDS: PATCH REMOVAL 1 EA PATCH TD SCH (21:14)
[2017-12-13] MEDS: TPN 1 EA BAG IV SCH (21:22)
[2017-12-13] MEDS: NS 1,000 ML IV SCH (23:28)
[2017-12-14] MEDS ORDERED: NS 500 ML IV ONE (00:32)
[2017-12-14] MEDS: guaiFENesin 200 MG/10 ML UDL TUBE SCH ×3 (02:26→10:51)
[2017-12-14] MEDS: HYDROmorphone HCL/NS 0.5 MG/ML SYR IVP PRN ×4 (05:41→16:09)
[2017-12-14] MEDS: METOCLOPRAMIDE 10 MG/2 ML VIAL IVP SCH ×4 (05:48→22:59)
[2017-12-14] MEDS: cefOXitin SODIUM 1 GM in STERILE WATER INJ 10.5 ML IV SCH ×2 (05:48→14:09)
[2017-12-14 06:12] LABS: PLATELET COUNT 459 10^3/uL (150-400)
[2017-12-14] MEDS: PANTOPRAZOLE SODIUM 40 MG VIAL IVP SCH (08:03)
[2017-12-14] MEDS: PREGABALIN 100 MG CAP TUBE SCH (08:03)
[2017-12-14] MEDS: LORazepam 2 MG/ML INJ IVP PRN ×2 (08:03→23:14)
[2017-12-14] MEDS: traMADol 50 MG TAB PO PRN (08:03)
[2017-12-14] MEDS: buPROPion 75 MG TAB TUBE SCH (08:04)
[2017-12-14] MEDS: VENLAFAXINE HCL 37.5 MG TAB TUBE SCH (08:10)
[2017-12-14] MEDS: LIDOCAINE 4%/MENTHOL 1% PATCH TD SCH (08:19)
[2017-12-14] MEDS ORDERED: DC NARCS MISC SCH (09:00)
[2017-12-14] MEDS ORDERED: REGARDING ANTICOAG MISC SCH (09:00)
[2017-12-14] MEDS: SALONPAS TP SCH (09:24)
--- NOTE | 2017-12-14 11:35 | HOSPPROG ---
Hospitalist Progress Note Assessment/Plan: Patient is a 71-year-old female who presented the emergency room with abdominal pain as well as nausea. She was transferred to the ICU because of aspiration pneumonia. It was noted that she had gastric outlet obstruction due to a duodenal mass. 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 She slowly improved. She continues to have an NG in place. And is also on TPN. Reviewed her care with Dr Burk * GOO -continues to have an NG in place -this is secondary to her duodenal mass -a gastrojejunostomy was performed on 12/13 * ampullary adenocarcinoma. -the biopsies from her lesion confirm this -s/p laparotomy on 12/13 with findings of carcinomatosis, Dr Burk to see today *post op ileus -will stop all oral medications via NG (no bowel sounds noted) * Malnutrition due to the GOO -on TPN, have added normal saline for her fluids to equal 100 mls an hour * pneumonia/resolved -aspiration -much improved/ on 2 liters -she has had a total of 14 days of abx (Ertapenem x 5 days and 9 days of Unasyn and Vancomycin) *hypokalemia -improved *left sided rib pain -chronic, better * acute hypoxemic respiratory failure -multifactorial -long hx of smoking and had pna * anemia -has been transfused a total of 3 units of packed red blood cells -continue close monitoring. Hemoglobin has been stable * depression and anxiety - Wellbutrin and Effexor -Ativan p.r.n. * nicotine dependence -patch -hx of extensive smoking for many years * chronic pain -usually on tramadol for this *dvt prophylaxis: LMWH * plan. Dr Burk to see, she will likely need palliative chemotherapy. Subjective: Sara has c/o pain with coughing and movement, but feels this is overall well managed. Objective: Vital Signs Temp Pulse Resp BP Pulse Ox 37.1 C 84 16 100/52 L 92 12/14/17 10:35 12/14/17 10:35 12/14/17 10:35 12/14/17 10:35 12/14/17 10:35 Laboratory Results 12/14/17 06:00 12/14/17 06:00 12/13/17 12/14/17 12/15/17 05:59 05:59 05:59 Intake Total 1224 4017 Output Total 3275 4595 Balance -2050 1492 PT 14.7 SEC (12.0-15.0) 12/06/17 04:40 INR 1.13 (0.83-1.16) 12/06/17 04:40 - Physical Exam Constitutional: not in pain, chronically ill appearing Eyes: PERRL Ears, Nose, Mouth, Throat: hearing normal Cardiovascular: regular rate and rhythym Respiratory: no respiratory distress, reduced air movement Skin: warm, No normal color (pale) Musculoskeletal: generalized weakness Neurologic: AAOx3 Psychiatric: interacting appropriately ICD10 Worksheet Patient Problems: Problems Problem Status Onset Dehydration Acute Vomiting Acute Diarrhea Acute
--- NOTE | 2017-12-14 12:36 | SOAPPROG ---
SOAP Progress Note Assessment/Plan: Assessment/Plan: 71 Y F diarrhea last week, N/V over weekend. Free air on CT. Nonsurgical abdomen on exam. Distended stomach, poor emptying. 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 Aspiration PNA. s/p gastrojejunostomy. +peritoneal and omental mets. Did not pursue Whipple. Hypotensive overnight. Epidural stopped. Improved. Ileus. Continue NPO, NGT, TPN. Continue reglan. Await for gastric/bowel function. Pathology pending. Oncology to be consulted. Could place port this stay if desired. S: Some pain since epidural stopped. New meds working. No N/V. No flatus, but some "rumbling" O: alert, nad ng in place ctab rrr abd soft, rare BS inc well dressed 12/14/17 12:33 Objective: Vital Signs Temp Pulse Resp BP Pulse Ox 37.1 C 84 16 100/52 L 92 12/14/17 10:35 12/14/17 10:35 12/14/17 10:35 12/14/17 10:35 12/14/17 10:35 Laboratory Results 12/14/17 06:00 12/14/17 06:00 12/13/17 12/14/17 12/15/17 05:59 05:59 05:59 Intake Total 1224 4017 Output Total 4086 2231 Balance -205 1492 PT 14.7 SEC (12.0-15.0) 12/06/17 04:40 INR 1.13 (0.83-1.16) 12/06/17 04:40 ICD10 Worksheet Patient Problems: Problems Problem Status Onset Dehydration Acute Vomiting Acute Diarrhea Acute
--- NOTE | 2017-12-14 13:46 | ASMTCMCOM ---
CM Note CM Note Notes: Patient went for surgery today and had an exploratory laparotomy, gastrojejunostomy, pertoneal and omental biopsies. Due to patient's insurance not covering rehab, D/C plan remains home health care as long as patient is medically stable and it is a safe discharge plan. CM will follow. Date Signed: 12/14/2017 01:45 PM Electronically Signed By:Johanna Chan LCSW
--- NOTE | 2017-12-14 14:08 | SOAPPROG ---
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 She was bypassed and is now recovering. This is not a curable situation but she can be treated with palliative intent with chemo (such as FOLFOX or gem/abraxane) that is fairly well tolerated. She will need further staging as an outpatient. She does not have much family support here (her sister is her main support and lives in [place]). Her current plan is to recover from her surgery then move to [place] to be closer to family support. We have a large associated practice in [place] ([facility] - [facility]) who would likely be able to assume her oncologic care. Interestingly, her father of pancreatic cancer which is closely related to this entity. Genetic counseling might be very appropriate. I discussed the above with the patient and her sister. I spent 40 min floor time in the above discussion and in coordination of care. Plan: - recover from surgery - PET/CT as an outpatient - genetic counseling as an outpatient - probable move to [place] to be near family for treatment 12/14/17 13:58 Subjective: Coughing up sputum. Expected post op pain. Active participant in today's conversation. Objective: Vital Signs Temp Pulse Resp BP Pulse Ox 37.1 C 84 16 100/52 L 92 12/14/17 10:35 12/14/17 10:35 12/14/17 10:35 12/14/17 10:35 12/14/17 10:35 Laboratory Results 12/14/17 06:00 12/14/17 06:00 12/12/17 12/13/17 12/14/17 23:59 23:59 23:59 Intake Total 2336 2362 1655 Output Total 2975 3265 360 Balance -639 -903 1295 PT 14.7 SEC (12.0-15.0) 12/06/17 04:40 INR 1.13 (0.83-1.16) 12/06/17 04:40 Physical Exam - Physical Exam General Appearance: alert, mild distress Respiratory: lungs clear Cardiac/Chest: regular rate, rhythm Skin: pallor Neuro/Psych: oriented x 3 ICD10 Worksheet Patient Problems: Problems Problem Status Onset Dehydration Acute Vomiting Acute Diarrhea Acute
--- NOTE | 2017-12-14 18:02 | POSTANESTH ---
Post Anesthetic Evaluation Cardiovascular Status: Normal, Stable, Similar to Pre-Op Cond Respiratory Status: Normal, Stable, Similar to Pre-op Cond. Level of Consciousness/Mental Status: Can Participate in Eval Pain Control: Adequate, Prn Tx Ordered Nausea/Vomiting Control: Adequate, Prn Tx Ordered Complications Possibly Related to Anesthesia: None Noted (Patient with hypotension overnight, RN contacted anesthesiology (Dr. Bah) given patient with thoracic epidural. Started with instructions to decrease infusion rate, then stop thoracic epidural infusion. Pressure improved. Hydromorphone IV PRN ordered by anesthesiology. Frequency of Hydromorphone PRN increased by hospitalist today. (Appreciate input) Patient's pain well controlled and blood pressure improved. Given patient's abreviated surgery and decreased surgical incision (vs. planned procedure), patient doing well enough for removal of thoracic epidural today. Catheter removed at 1800. Patient can be restarted on lovenox for DVT prophylaxis after 2200 this evening if appropriate per primary service.)
[2017-12-14] MEDS ORDERED: NALOXONE HCL 0.4 MG/ML INJ IVP PRN (18:16)
[2017-12-14] MEDS: HYDROmorphONE/DILAUDID 6 MG/30 ML PCA IV PRN (19:45)
[2017-12-14] MEDS: TPN 1 EA BAG IV SCH (21:18)
[2017-12-14] MEDS: PATCH REMOVAL 1 EA PATCH TD SCH (21:23)
[2017-12-15] MEDS: METOCLOPRAMIDE 10 MG/2 ML VIAL IVP SCH ×3 (05:18→18:12)
[2017-12-15] MEDS: SALONPAS TP SCH (07:43)
[2017-12-15] MEDS: LIDOCAINE 4%/MENTHOL 1% PATCH TD SCH (07:43)
[2017-12-15] MEDS: PANTOPRAZOLE SODIUM 40 MG VIAL IVP SCH (09:53)
--- NOTE | 2017-12-15 10:07 | SOAPPROG ---
SOAP Progress Note Assessment/Plan: Assessment/Plan: 71 Y F diarrhea last week, N/V over weekend. Free air on CT. Nonsurgical abdomen on exam. Distended stomach, poor emptying. 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 Aspiration PNA. s/p gastrojejunostomy. +peritoneal and omental mets. Did not pursue Whipple. Discussed with medicine. Appreciate oncology input. Will trial an NGT clamping today and check residual. Still with ileus--need to move slowly. Will likely need swallow eval once tube finally removed. Wounds well dressed c silver dressing--can leave in place up to 7 days. Continue pain control. Epidural out. S: just woke up. no flatus. no n/v. pain with coughing. O: alert, nad ng in place ctab rrr abd soft, very rare BS inc well dressed 12/15/17 10:04 Objective: Vital Signs Temp Pulse Resp BP Pulse Ox 37 C 91 16 106/52 L 93 12/15/17 08:00 12/15/17 08:00 12/15/17 08:00 12/15/17 08:00 12/15/17 08:00 Laboratory Results 12/14/17 06:00 12/15/17 04:10 12/14/17 12/15/17 12/16/17 05:59 05:59 05:59 Intake Total 4010 4130 Output Total 6351 1999 Balance 1492 144 PT 14.7 SEC (12.0-15.0) 12/06/17 04:40 INR 1.13 (0.83-1.16) 12/06/17 04:40 ICD10 Worksheet Patient Problems: Problems Problem Status Onset Dehydration Acute Vomiting Acute Diarrhea Acute
[2017-12-15] MEDS ORDERED: NYSTATIN SUSP 500000 UNIT/5 ML UDCUP PO SCH (12:00)
--- NOTE | 2017-12-15 12:03 | HOSPPROG ---
Hospitalist Progress Note Assessment/Plan: Patient is a 71-year-old female who presented the emergency room with abdominal pain as well as nausea. She was transferred to the ICU because of aspiration pneumonia. It was noted that she had gastric outlet obstruction due to a duodenal mass. 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 She slowly improved. She continues to have an NG in place. And is also on TPN. Reviewed her care with Dr Burk * GOO -continues to have an NG in place -this is secondary to her duodenal mass -a gastrojejunostomy was performed on 12/13 * ampullary adenocarcinoma. -the biopsies from her lesion confirm this -s/p laparotomy on 12/13 with findings of carcinomatosis, Dr Burk and myself met with the patient and her sister -plan is for them to f/u with Dr Burk to discuss possible chemotherapy for palliative treatment or no treatment *post op ileus -will stop all oral medications via NG (no bowel sounds noted) -trial of clamping NG, on Reglan * Malnutrition due to the GOO -on TPN, have added normal saline for her fluids to equal 100 mls an hour * pneumonia/resolved -aspiration -much improved/ on 2 liters -she has had a total of 14 days of abx (Ertapenem x 5 days and 9 days of Unasyn and Vancomycin) *hypokalemia -improved *left sided rib pain -chronic *thrush -nystatin "swish and spit" * acute hypoxemic respiratory failure -multifactorial -long hx of smoking and had pna * anemia -has been transfused a total of 3 units of packed red blood cells -continue close monitoring. Hemoglobin has been stable * depression and anxiety - Wellbutrin and Effexor -Ativan p.r.n. * nicotine dependence -patch -hx of extensive smoking for many years * chronic pain -usually on tramadol for this *dvt prophylaxis: LMWH * plan. cont current care, updated patient and her sister about the plan of care. Goal is to get her off TPN once she gets bowel sounds and can eat. Will need help at home, not clear she can go to SNF with her insurance. Sister is very supportive, patient may move to be closer to her sister for support. All of her oral medications are on hold. Subjective: Sara cont to have left sided pain and pain at incision site. Objective: Vital Signs Temp Pulse Resp BP Pulse Ox 36.9 C 87 16 115/53 L 94 12/15/17 10:00 12/15/17 10:00 12/15/17 10:00 12/15/17 10:00 12/15/17 10:00 Laboratory Results 12/14/17 06:00 12/15/17 04:10 12/14/17 12/15/17 12/16/17 05:59 05:59 05:59 Intake Total 4012 2144 Output Total 2525 1999 Balance 1492 144 PT 14.7 SEC (12.0-15.0) 12/06/17 04:40 INR 1.13 (0.83-1.16) 12/06/17 04:40 - Physical Exam Constitutional: chronically ill appearing, uncomfortable, No not in pain Eyes: PERRL Ears, Nose, Mouth, Throat: hearing normal Cardiovascular: regular rate and rhythym Respiratory: no respiratory distress, reduced air movement Gastrointestinal: tenderness, No normoactive bowel sounds Skin: warm Musculoskeletal: generalized weakness Neurologic: AAOx3 Psychiatric: interacting appropriately, not anxious ICD10 Worksheet Patient Problems: Problems Problem Status Onset Dehydration Acute Vomiting Acute Diarrhea Acute
[2017-12-15] MEDS: NYSTATIN SUSP 500000 UNIT/5 ML UDCUP PO SCH ×3 (12:07→21:20)
[2017-12-15] MEDS: LORazepam 2 MG/ML INJ IVP PRN ×2 (12:32→21:37)
--- NOTE | 2017-12-15 14:11 | SOAPPROG ---
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 She was bypassed and is now recovering. This is not a curable situation but she can be treated with palliative intent with chemo (such as FOLFOX or gem/abraxane) that is fairly well tolerated. She will need further staging as an outpatient. She does not have much family support here (her sister is her main support and lives in [place]). Her current plan is to recover from her surgery then move to [place] to be closer to family support. We have a large associated practice in [place] ([facility] - [facility]) who would likely be able to assume her oncologic care. Interestingly, her father of pancreatic cancer which is closely related to this entity. Genetic counseling might be very appropriate. Post acute setting disposition is still up in the air. Apparently there is an issue with her particular configuration of Medicare benefits. As far as prognosis is concerned, without further treatment, her prognosis is in the 3-6 month range. This might extend to 6-12 months with palliative therapy. I shared this with the patient's sister, but the patient is not currently interested in specifics. Plan: - recover from surgery - PET/CT as an outpatient - genetic counseling as an outpatient - probable move to [place] to be near family for treatment Subjective: NG tube clamped. No flatus yet. C/O bilateral shoulder pain. Walked x2 so far today. Objective: Vital Signs Temp Pulse Resp BP Pulse Ox 36.7 C 89 18 123/67 H 96 12/15/17 12:00 12/15/17 12:00 12/15/17 12:00 12/15/17 12:00 12/15/17 12:00 Laboratory Results 12/14/17 06:00 12/15/17 04:10 12/13/17 12/14/17 12/15/17 23:59 23:59 23:59 Intake Total 2362 2879 920 Output Total 3265 1710 650 Balance -903 1169 270 PT 14.7 SEC (12.0-15.0) 12/06/17 04:40 INR 1.13 (0.83-1.16) 12/06/17 04:40 Physical Exam - Physical Exam General Appearance: alert, mild distress Respiratory: lungs clear Cardiac/Chest: regular rate, rhythm Abdomen: No normal bowel sounds (quiet abdomen) Skin: warm/dry, pallor Neuro/Psych: no motor/sensory deficits, normal mood/affect, oriented x 3 ICD10 Worksheet Patient Problems: Problems Problem Status Onset Dehydration Acute Vomiting Acute Diarrhea Acute
--- NOTE | 2017-12-15 16:28 | ASMTCMCOM ---
CM Note CM Note Notes: Spoke with pt and her daughter about pt's insurance coverage. She has Medicare Part B only and [place] [employer] through [place] [employer]. 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 A copy of her insurance card is in the chart. Per the [employer] sales representative [phone], pt's [place] coverage is her "Medicare Part A." (Teachers do not pay into Social Security for Medicare Part A.) Also spoke with the [employer] sales representative [phone] who confirmed pt's [place] is her primary insurance (even though the card says "supplemental'). Discussed with Humberto at [employer] and provided contact info for [employer], if needed. She will pass this along and also ask her Business Office to call [employer] again. She may have a deductible and a copay but [employer] said she has SNF coverage for rehabilitation. Date Signed: 12/15/2017 04:27 PM Electronically Signed By:TORSTEN Lindsey
[2017-12-15] MEDS: HYDROmorphONE/DILAUDID 6 MG/30 ML PCA IV PRN (21:08)
[2017-12-15] MEDS: TPN 1 EA BAG IV SCH (21:17)
[2017-12-15] MEDS: PATCH REMOVAL 1 EA PATCH TD SCH (21:20)
[2017-12-16] MEDS: METOCLOPRAMIDE 10 MG/2 ML VIAL IVP SCH ×4 (00:18→17:31)
[2017-12-16] MEDS: PANTOPRAZOLE SODIUM 40 MG VIAL IVP SCH (08:33)
[2017-12-16] MEDS: NYSTATIN SUSP 500000 UNIT/5 ML UDCUP PO SCH ×4 (08:33→21:24)
[2017-12-16] MEDS: SALONPAS TP SCH (08:34)
[2017-12-16] MEDS: LIDOCAINE 4%/MENTHOL 1% PATCH TD SCH (08:34)
[2017-12-16] MEDS: LORazepam 2 MG/ML INJ IVP PRN ×2 (11:19→21:58)
--- NOTE | 2017-12-16 11:28 | SOAPPROG ---
SOAP Progress Note Assessment/Plan: Assessment: 71 Y F s/p gastrojejunostomy 12/14. +peritoneal and omental mets. Did not pursue Whipple. Appreciate onc input. S: Doing well today. Denies nausea. Would like to start drinking liquids. Not passing flatus yet. Did well with NG tube clamped all night. O: Alert Afebrile NG in place and clamped Cardiac: RRR Lungs: CTA bilaterally Abdomen: soft. rare BS. Dressing cdi Plan: Pt seen and evaluated with Dr. Navarrete. Start clear liquids. Keep NG tube in place until we know she can tolerate oral intake. Reglan to help things move along. Objective: Vital Signs Temp Pulse Resp BP Pulse Ox 36.5 C 82 18 122/65 H 97 12/16/17 10:00 12/16/17 10:00 12/16/17 10:00 12/16/17 10:00 12/16/17 10:00 Laboratory Results 12/14/17 06:00 12/15/17 04:10 12/15/17 12/16/17 12/17/17 05:59 05:59 05:59 Intake Total 2144 2375 Output Total 1999 Balance 144 2175 PT 14.7 SEC (12.0-15.0) 12/06/17 04:40 INR 1.13 (0.83-1.16) 12/06/17 04:40 ICD10 Worksheet Patient Problems: Problems Problem Status Onset Dehydration Acute Vomiting Acute Diarrhea Acute
[2017-12-16] MEDS: ENOXAPARIN 40 MG/0.4 ML SYR SC SCH (12:38)
[2017-12-16] MEDS: HYDROmorphONE/DILAUDID 6 MG/30 ML PCA IV PRN (14:00)
--- NOTE | 2017-12-16 14:17 | SOAPPROG ---
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 She was bypassed and is now recovering. This is not a curable situation but she can be treated with palliative intent with chemo (such as FOLFOX or gem/abraxane) that is fairly well tolerated. She will need further staging as an outpatient. She does not have much family support here (her sister is her main support and lives in [place]). Her current plan is to recover from her surgery then move to [place] to be closer to family support. We have a large associated practice in [place] ([facility] - [facility]) who would likely be able to assume her oncologic care. Interestingly, her father of pancreatic cancer which is closely related to this entity. Genetic counseling might be very appropriate. Post acute setting disposition is still up in the air. Her post hospitalization benefits are being clarified. As far as prognosis is concerned, without further treatment, her prognosis is in the 3-6 month range. This might extend to 6-12 months with palliative therapy. I shared this with the patient's sister, but the patient is not currently interested in specifics. She has no new questions today. Plan: - recover from surgery - PET/CT as an outpatient - genetic counseling as an outpatient - probable move to [place] to be near family for treatment Subjective: Hopes to get NG out soon. Objective: Vital Signs Temp Pulse Resp BP Pulse Ox 36.8 C 88 18 119/62 98 12/16/17 13:54 12/16/17 13:54 12/16/17 13:54 12/16/17 13:54 12/16/17 13:54 Laboratory Results 12/14/17 06:00 12/15/17 04:10 12/14/17 12/15/17 12/16/17 23:59 23:59 23:59 Intake Total 2879 2144 1151 Output Total 1710 850 Balance 1169 1294 1151 PT 14.7 SEC (12.0-15.0) 12/06/17 04:40 INR 1.13 (0.83-1.16) 12/06/17 04:40 Physical Exam - Physical Exam General Appearance: alert, no apparent distress Respiratory: lungs clear Cardiac/Chest: regular rate, rhythm Abdomen: normal bowel sounds Skin: warm/dry Neuro/Psych: alert, normal mood/affect, oriented x 3 ICD10 Worksheet Patient Problems: Problems Problem Status Onset Dehydration Acute Vomiting Acute Diarrhea Acute
--- NOTE | 2017-12-16 15:45 | HOSPPROG ---
Hospitalist Progress Note Assessment/Plan: Patient is a 71-year-old female who presented the emergency room with abdominal pain as well as nausea. She was transferred to the ICU because of aspiration pneumonia. It was noted that she had gastric outlet obstruction due to a duodenal mass. 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 She slowly improved. She continues to have an NG in place. And is also on TPN. First encounter, chart reviewed. * GOO -continues to have an NG in place, clamped, tolerating -this is secondary to her duodenal mass -a gastrojejunostomy was performed on 12/13 * ampullary adenocarcinoma. -the biopsies from her lesion confirm this -s/p laparotomy on 12/13 with findings of carcinomatosis, Dr Burk following -plan is for them to f/u with Dr Burk to discuss possible chemotherapy for palliative treatment or no treatment *post op ileus -some bowel sounds today -trial of clamping NG, on Reglan * Malnutrition due to the GOO -on TPN, normal saline for her fluids to equal 100 mls an hour * pneumonia/resolved -aspiration -much improved/ on 2 liters -she has had a total of 14 days of abx (Ertapenem x 5 days and 9 days of Unasyn and Vancomycin) *hypokalemia -improved *left sided rib pain -chronic *thrush -nystatin "swish and spit" * acute hypoxemic respiratory failure -multifactorial -long hx of smoking and had pna * anemia -has been transfused a total of 3 units of packed red blood cells -continue close monitoring. Hemoglobin has been stable * depression and anxiety - Wellbutrin and Effexor -Ativan p.r.n. * nicotine dependence -patch -hx of extensive smoking for many years * chronic pain -usually on tramadol for this *dvt prophylaxis: LMWH * plan. cont current care. Goal is to get her off TPN once she can eat. Will need help at home, not clear she can go to SNF with her insurance. Sister is very supportive, patient may move to be closer to her sister for support. All of her oral medications are on hold. Subjective: Feeling better today. No pain. Trying liquids. Objective: Vital Signs Temp Pulse Resp BP Pulse Ox 36.8 C 88 18 119/62 98 12/16/17 13:54 12/16/17 13:54 12/16/17 13:54 12/16/17 13:54 12/16/17 13:54 Laboratory Results 12/14/17 06:00 12/15/17 04:10 12/15/17 12/16/17 12/17/17 05:59 05:59 05:59 Intake Total 2144 2375 Output Total 1999 Balance 144 2175 PT 14.7 SEC (12.0-15.0) 12/06/17 04:40 INR 1.13 (0.83-1.16) 12/06/17 04:40 - Physical Exam Constitutional: no apparent distress, not in pain, chronically ill appearing Eyes: PERRL, anicteric sclera, EOMI Ears, Nose, Mouth, Throat: moist mucous membranes, hearing normal, ears appear normal, other (ngt) Cardiovascular: regular rate and rhythym, No JVD, No tachycardia Respiratory: no respiratory distress, no rales or rhonchi, clear to auscultation Gastrointestinal: tenderness, No ascites, No guarding Skin: warm, normal color, No mottled Musculoskeletal: no muscle tenderness, normal joint ROM, generalized weakness Neurologic: AAOx3 Psychiatric: interacting appropriately, not anxious, not encephalopathic, thought process linear ICD10 Worksheet Patient Problems: Problems Problem Status Onset Diarrhea Acute Vomiting Acute Dehydration Acute
--- NOTE | 2017-12-16 16:41 | ASMTCMCOM ---
CM Note CM Note Notes: Met with pt and her sister for psychosocial support. Pt has a new dx of carcinoma of the ampulla of vater. She also has peritoneal mets. Pt stated she has been given clear information about her dx and treatment options. Told her about local support group options for her and her sister. Submitted a [employer] request. LM for [facility] to visit with pt tomorrow. Date Signed: 12/16/2017 04:40 PM Electronically Signed By:Skylar Torres LCSW
[2017-12-16] MEDS: TPN 1 EA BAG IV SCH (21:24)
[2017-12-16] MEDS: PATCH REMOVAL 1 EA PATCH TD SCH (21:31)
[2017-12-17] MEDS: METOCLOPRAMIDE 10 MG/2 ML VIAL IVP SCH ×4 (00:09→18:26)
[2017-12-17] MEDS: NS 1,000 ML IV SCH (01:39)
[2017-12-17] MEDS: ENOXAPARIN 40 MG/0.4 ML SYR SC SCH (09:36)
[2017-12-17] MEDS: NYSTATIN SUSP 500000 UNIT/5 ML UDCUP PO SCH ×4 (09:36→21:21)
[2017-12-17] MEDS: LIDOCAINE 4%/MENTHOL 1% PATCH TD SCH (09:37)
[2017-12-17] MEDS: SALONPAS TP SCH (09:37)
[2017-12-17] MEDS: PANTOPRAZOLE SODIUM 40 MG VIAL IVP SCH (09:37)
--- NOTE | 2017-12-17 10:29 | SOAPPROG ---
SOAP Progress Note Assessment/Plan: Assessment: 71 Y F s/p gastrojejunostomy 12/14. +peritoneal and omental mets. Did not pursue Whipple. Appreciate onc input. S: Doing well today. Denies nausea. Would like to start drinking liquids. Not passing flatus yet. Did well with NG tube clamped all night. O: Alert Afebrile NG in place and clamped Cardiac: RRR Lungs: CTA bilaterally Abdomen: soft. rare BS. Dressing cdi Plan: Pt seen and evaluated with Dr. Navarrete. Start clear liquids. Keep NG tube in place until we know she can tolerate oral intake. Reglan to help things move along. 12/17/17 10:27 Continuing to improve. Tolerating sips of clears. Denies nausea. Feels the reglan is starting to help her bowels move, felt cramping last night. Still no flatus or BM though. Afebrile. Increased BS from yesterday. Pull NG tube today. Objective: Vital Signs Temp Pulse Resp BP Pulse Ox 37.0 C 89 16 110/61 91 L 12/17/17 07:40 12/17/17 07:40 12/17/17 07:40 12/17/17 07:40 12/17/17 07:40 Laboratory Results 12/14/17 06:00 12/17/17 05:00 12/16/17 12/17/17 12/18/17 05:59 05:59 05:59 Intake Total 2375 2119 Output Total 200 Balance 2175 2119 PT 14.7 SEC (12.0-15.0) 12/06/17 04:40 INR 1.13 (0.83-1.16) 12/06/17 04:40 ICD10 Worksheet Patient Problems: Problems Problem Status Onset Dehydration Acute Vomiting Acute Diarrhea Acute
--- NOTE | 2017-12-17 11:59 | ASMTCMCOM ---
CM Note CM Note Notes: Today Raul from [employer] was able to confirm that Pt's [employer] plan through her [employer] insurance is indeed her primary insurance and that Pt. does have a SNF benefit. Per Raul, Pt. pays a 30% copay on SNF days, coming out to about $100/day. This may be reimbursed to Pt. due to Pt. having a $4500 out of pocket max for the year, which will likely be met by [facility] admission. Jackr discussed this with Pt. in room today. Pt. OK with the plan to go to [facility] with these financial plans. Pt. and SWer also discussed her family and Ammy ties and her plans going forward. Discussed some issues regarding her mother's in her nineties in June 2017. Please note that Ng tube must be out before Pt. can go to [facility]. Hospitalist good with plan to d/c Wednesday or when appropriate. Date Signed: 12/17/2017 11:58 AM Electronically Signed By:Evangelina Espinal LCSW
--- NOTE | 2017-12-17 11:59 | SOAPPROG ---
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 She was bypassed and is now recovering. This is not a curable situation but she can be treated with palliative intent with chemo (such as FOLFOX or gem/abraxane) that is fairly well tolerated. She will need further staging as an outpatient. She does not have much family support here (her sister is her main support and lives in [place]). Her current plan is to recover from her surgery then move to [place] to be closer to family support. We have a large associated practice in [place] ([facility] - [facility]) who would likely be able to assume her oncologic care. Interestingly, her father of pancreatic cancer which is closely related to this entity. Genetic counseling might be very appropriate. The current plan it to aim for discharge to [facility] on Wednesday As far as prognosis is concerned, without further treatment, her prognosis is in the 3-6 month range. This might extend to 6-12 months with palliative therapy. I shared this with the patient's sister, but the patient is not currently interested in specifics. She has no new questions today. Plan: - recover from surgery - probably will get NG out today - PET/CT as an outpatient - genetic counseling as an outpatient - probable move to [place] to be near family for treatment Subjective: No complaints. Passed flatus today. Anxious to get NG out today. Objective: Vital Signs Temp Pulse Resp BP Pulse Ox 36.8 C 94 16 130/65 H 2 L 12/17/17 11:40 12/17/17 11:40 12/17/17 11:40 12/17/17 11:40 12/17/17 11:40 Laboratory Results 12/14/17 06:00 12/17/17 05:00 12/15/17 12/16/17 12/17/17 23:59 23:59 23:59 Intake Total 2144 2265 1005 Output Total 850 Balance 1294 2265 1005 PT 14.7 SEC (12.0-15.0) 12/06/17 04:40 INR 1.13 (0.83-1.16) 12/06/17 04:40 Physical Exam - Physical Exam General Appearance: alert, no apparent distress Respiratory: lungs clear Cardiac/Chest: regular rate, rhythm Abdomen: normal bowel sounds, non-tender, soft Skin: warm/dry, pallor Neuro/Psych: alert, normal mood/affect ICD10 Worksheet Patient Problems: Problems Problem Status Onset Dehydration Acute Vomiting Acute Diarrhea Acute
[2017-12-17] MEDS: LORazepam 2 MG/ML INJ IVP PRN ×2 (12:13→21:19)
--- NOTE | 2017-12-17 14:23 | HOSPPROG ---
Hospitalist Progress Note Assessment/Plan: Patient is a 71-year-old female who presented the emergency room with abdominal pain as well as nausea. She was transferred to the ICU because of aspiration pneumonia. It was noted that she had gastric outlet obstruction due to a duodenal mass. 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 She slowly improved. She continues to have an NG in place. And is also on TPN. * GOO -DC NGT today, D/W surgery -this is secondary to her duodenal mass -a gastrojejunostomy was performed on 12/13 * ampullary adenocarcinoma. -the biopsies from her lesion confirm this -s/p laparotomy on 12/13 with findings of carcinomatosis, D/W Dr Burk -plan is for them to f/u with Dr Burk to discuss possible chemotherapy for palliative treatment or no treatment *post op ileus -some bowel sounds today -positive flatus * Malnutrition due to the GOO -on TPN, titrate off - dc fluids * pneumonia/resolved -aspiration -much improved/ on 2 liters -she has had a total of 14 days of abx (Ertapenem x 5 days and 9 days of Unasyn and Vancomycin) *pain -trial po pain meds -oxy ir ordered *hypokalemia -improved *left sided rib pain -chronic *thrush -nystatin "swish and spit" * acute hypoxemic respiratory failure -multifactorial -long hx of smoking and had pna * anemia -has been transfused a total of 3 units of packed red blood cells -continue close monitoring. Hemoglobin has been stable * depression and anxiety - Wellbutrin and Effexor -Ativan p.r.n. * nicotine dependence -patch -hx of extensive smoking for many years * chronic pain -usually on tramadol for this *dvt prophylaxis: LMWH * plan. cont current care. Goal is to get her off TPN. Will need help at home, not clear she can go to SNF with her insurance. Sister is very supportive, patient may move to be closer to her sister for support. Subjective: Feeling better today. Up walking. No pain currently. Objective: Vital Signs Temp Pulse Resp BP Pulse Ox 36.8 C 94 16 125/56 H 94 12/17/17 11:40 12/17/17 14:00 12/17/17 14:00 12/17/17 14:00 12/17/17 14:00 Laboratory Results 12/14/17 06:00 12/17/17 05:00 12/16/17 12/17/17 12/18/17 05:59 05:59 05:59 Intake Total 2375 2119 Output Total 200 Balance 2175 2119 PT 14.7 SEC (12.0-15.0) 12/06/17 04:40 INR 1.13 (0.83-1.16) 12/06/17 04:40 - Physical Exam Constitutional: appears nourished, not in pain, chronically ill appearing Eyes: PERRL, anicteric sclera, EOMI Ears, Nose, Mouth, Throat: moist mucous membranes, hearing normal, ears appear normal Cardiovascular: regular rate and rhythym, No JVD, No edema Respiratory: no respiratory distress, no rales or rhonchi, reduced air movement Gastrointestinal: tenderness, No ascites, No guarding, No distension Skin: warm, normal color, No mottled Musculoskeletal: normal joint ROM, no joint effusions, generalized weakness Neurologic: AAOx3 Psychiatric: not anxious, not encephalopathic, thought process linear, poor memory ICD10 Worksheet Patient Problems: Problems Problem Status Onset Diarrhea Acute Vomiting Acute Dehydration Acute
[2017-12-17] MEDS: oxyCODONE IR 5 MG TAB PO PRN ×2 (15:22→18:26)
[2017-12-17] MEDS: traMADol 50 MG TAB PO PRN ×2 (16:34→21:18)
[2017-12-17] MEDS: PATCH REMOVAL 1 EA PATCH TD SCH (21:21)
[2017-12-17] MEDS: TPN 1 EA BAG IV SCH (23:20)
[2017-12-17] MEDS ORDERED: CEPACOL LOZENGE PO PRN (23:53)
[2017-12-18] MEDS: METOCLOPRAMIDE 10 MG/2 ML VIAL IVP SCH ×5 (00:12→23:45)
[2017-12-18] MEDS: oxyCODONE IR 5 MG TAB PO PRN ×3 (00:16→21:33)
[2017-12-18] MEDS: traMADol 50 MG TAB PO PRN ×2 (04:12→14:09)
[2017-12-18] MEDS: PANTOPRAZOLE SODIUM 40 MG VIAL IVP SCH (08:23)
[2017-12-18] MEDS: NYSTATIN SUSP 500000 UNIT/5 ML UDCUP PO SCH ×4 (08:23→21:32)
[2017-12-18] MEDS: SALONPAS TP SCH (08:23)
[2017-12-18] MEDS: ENOXAPARIN 40 MG/0.4 ML SYR SC SCH (08:23)
[2017-12-18] MEDS: LIDOCAINE 4%/MENTHOL 1% PATCH TD SCH (08:23)
--- NOTE | 2017-12-18 09:47 | HOSPPROG ---
Hospitalist Progress Note Assessment/Plan: Patient is a 71-year-old female who presented the emergency room with abdominal pain as well as nausea. She was transferred to the ICU because of aspiration pneumonia. It was noted that she had gastric outlet obstruction due to a duodenal mass. 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 She slowly improved. She continues to have an NG in place. And is also on TPN. * GOO -NGT DC'd -this is secondary to her duodenal mass -a gastrojejunostomy was performed on 12/13 * ampullary adenocarcinoma. -the biopsies from her lesion confirm this -s/p laparotomy on 12/13 with findings of carcinomatosis, D/W Dr Burk -plan is for them to f/u with Dr Burk to discuss possible chemotherapy for palliative treatment or no treatment *post op ileus -some bowel sounds today -positive flatus * Malnutrition due to the GOO - DC TPN - dc fluids * pneumonia/resolved -aspiration -much improved/ on 2 liters -she has had a total of 14 days of abx (Ertapenem x 5 days and 9 days of Unasyn and Vancomycin) *pain -trial po pain meds -oxy ir ordered -ultram *hypokalemia -improved *left sided rib pain -chronic *thrush -nystatin "swish and spit" * acute hypoxemic respiratory failure -multifactorial -long hx of smoking and had pna * anemia -has been transfused a total of 3 units of packed red blood cells -continue close monitoring. Hemoglobin has been stable * depression and anxiety - Wellbutrin and Effexor -Ativan p.r.n. * nicotine dependence -patch -hx of extensive smoking for many years * chronic pain -usually on tramadol for this *dvt prophylaxis: LMWH * plan. cont current care. Will need help at home, not clear she can go to SNF with her insurance. Sister is very supportive, patient may move to be closer to her sister for support. Subjective: Feeling tired today. No pain. Improving. Objective: Vital Signs Temp Pulse Resp BP Pulse Ox 36.7 C 90 16 104/58 L 90 L 12/18/17 07:35 12/18/17 07:35 12/18/17 07:35 12/18/17 07:35 12/18/17 07:35 Laboratory Results 12/14/17 06:00 12/17/17 05:00 12/17/17 12/18/17 12/19/17 05:59 05:59 05:59 Intake Total 2119 1686 Balance 2119 1686 PT 14.7 SEC (12.0-15.0) 12/06/17 04:40 INR 1.13 (0.83-1.16) 12/06/17 04:40 - Physical Exam Constitutional: appears nourished, not in pain, chronically ill appearing Eyes: PERRL, anicteric sclera, EOMI Ears, Nose, Mouth, Throat: moist mucous membranes, hearing normal, ears appear normal Cardiovascular: No JVD, No tachycardia, No edema Respiratory: no respiratory distress, no rales or rhonchi, reduced air movement Gastrointestinal: tenderness, No ascites, No guarding Skin: warm, normal color, No mottled Musculoskeletal: normal joint ROM, no joint effusions, generalized weakness Neurologic: AAOx3 Psychiatric: not anxious, not encephalopathic, thought process linear ICD10 Worksheet Patient Problems: Problems Problem Status Onset Diarrhea Acute Vomiting Acute Dehydration Acute
[2017-12-18] MEDS: LORazepam 0.5 MG TAB PO PRN ×2 (14:09→21:33)
--- NOTE | 2017-12-18 15:50 | SOAPPROG ---
JOSE GUADALUPE Progress Note Assessment/Plan: Assessment: 71 yo with metastatic pancreatic cancer s/p gastrojejunostomy Regular diet S: Passing flatus and hungry O: Incision cdi soft, bowel sounds present Plan: 11/27/17 10:09 11/27/17 10:11 11/28/17 12:07 12/18/17 15:44 Objective: Vital Signs Temp Pulse Resp BP Pulse Ox 36.8 C 83 14 102/57 L 98 12/18/17 15:24 12/18/17 15:24 12/18/17 15:24 12/18/17 15:24 12/18/17 15:24 Laboratory Results 12/14/17 06:00 12/17/17 05:00 12/17/17 12/18/17 12/19/17 05:59 05:59 05:59 Intake Total 2119 1686 Balance 2119 1686 PT 14.7 SEC (12.0-15.0) 12/06/17 04:40 INR 1.13 (0.83-1.16) 12/06/17 04:40 ICD10 Worksheet Patient Problems: Problems Problem Status Onset Dehydration Acute Vomiting Acute Diarrhea Acute
--- NOTE | 2017-12-18 16:19 | SOAPPROG ---
SOAP Progress Note Assessment/Plan: A/P: * Unresectable adenocarcinoma of the ampulla of Vater with GOO and peritoneal carcinomatosis. Recovering from bypass. Palliative chemotherapy is an option. She will need further staging as an outpatient. She lives alone and does not have much local support. Her current plan is to recover from her surgery then move to [place] to be with her sister there. Plan: Likely d/c to rehab on Wednesday. PET/CT as an outpatient. Genetic counseling as an outpatient (father pancreatic cancer, ?BRCA). Probable move to [place] to be near family for treatment. 12/18/17 16:15 Subjective: No new concerns. Not much appetite. Pain control in adequate. Passing gas. O: VS reviewed. Gen: fatigued appearing but NAD. Lungs: breathing comfortably. Abd: incisions without erythema, +BS. Objective: Vital Signs Temp Pulse Resp BP Pulse Ox 36.8 C 83 14 102/57 L 98 12/18/17 15:24 12/18/17 15:24 12/18/17 15:24 12/18/17 15:24 12/18/17 15:24 Laboratory Results 12/14/17 06:00 12/17/17 05:00 12/17/17 12/18/17 12/19/17 05:59 05:59 05:59 Intake Total 2119 1686 Balance 2119 1686 PT 14.7 SEC (12.0-15.0) 12/06/17 04:40 INR 1.13 (0.83-1.16) 12/06/17 04:40 ICD10 Worksheet Patient Problems: Problems Problem Status Onset Dehydration Acute Vomiting Acute Diarrhea Acute
[2017-12-18] MEDS: PATCH REMOVAL 1 EA PATCH TD SCH (21:23)
[2017-12-18] MEDS: ALTEPLASE 2 MG VIAL IVP PRN ×2 (23:46→23:47)
[2017-12-19] MEDS: ONDANSETRON 4 MG/2 ML VIAL IVP PRN (01:41)
[2017-12-19] MEDS: traMADol 50 MG TAB PO PRN (01:41)
[2017-12-19] MEDS: METOCLOPRAMIDE 10 MG/2 ML VIAL IVP SCH ×4 (05:27→23:16)
[2017-12-19] MEDS: oxyCODONE IR 5 MG TAB PO PRN (06:08)
[2017-12-19] MEDS: LORazepam 0.5 MG TAB PO PRN (07:28)
[2017-12-19] MEDS ORDERED: ACETAMINOPHEN 325 MG TAB PO PRN (08:00)
--- NOTE | 2017-12-19 08:08 | SOAPPROG ---
SOAP Progress Note Assessment/Plan: Assessment: 71 yo with metastatic pancreatic cancer s/p gastrojejunostomy Regular diet Can try to eat more today DC to SNF soon S: Tolerated soup and crackers. Passing flatus and had BM O: Incision cdi soft, bowel sounds present Plan: 11/27/17 10:09 11/27/17 10:11 11/28/17 12:07 12/18/17 15:44 12/19/17 08:07 Objective: Vital Signs Temp Pulse Resp BP Pulse Ox 36.8 C 85 14 83/61 L 94 12/19/17 08:00 12/19/17 08:00 12/19/17 08:00 12/19/17 08:00 12/19/17 08:00 Laboratory Results 12/14/17 06:00 12/17/17 05:00 12/18/17 12/19/17 12/20/17 05:59 05:59 05:59 Intake Total 1686 Balance 1686 PT 14.7 SEC (12.0-15.0) 12/06/17 04:40 INR 1.13 (0.83-1.16) 12/06/17 04:40 ICD10 Worksheet Patient Problems: Problems Problem Status Onset Dehydration Acute Vomiting Acute Diarrhea Acute
[2017-12-19] MEDS ORDERED: VENLAFAXINE HCL 37.5 MG TAB PO SCH (09:00)
[2017-12-19] MEDS ORDERED: buPROPion 75 MG TAB PO SCH (09:00)
[2017-12-19] MEDS: ENOXAPARIN 40 MG/0.4 ML SYR SC SCH (10:32)
[2017-12-19] MEDS: PREGABALIN 100 MG CAP PO SCH ×3 (10:32→21:32)
[2017-12-19] MEDS: NYSTATIN SUSP 500000 UNIT/5 ML UDCUP PO SCH ×4 (10:32→21:32)
[2017-12-19] MEDS: ZENPEP 25000 UNIT PO SCH ×2 (10:33→12:59)
[2017-12-19] MEDS: LIDOCAINE 4%/MENTHOL 1% PATCH TD SCH (10:33)
[2017-12-19] MEDS: buPROPion 75 MG TAB PO SCH ×2 (10:33→21:32)
[2017-12-19] MEDS: SALONPAS TP SCH (10:34)
[2017-12-19] MEDS: PANTOPRAZOLE SODIUM 40 MG VIAL IVP SCH (10:41)
--- NOTE | 2017-12-19 10:51 | HOSPPROG ---
Hospitalist Progress Note Assessment/Plan: Patient is a 71-year-old female who presented the emergency room with abdominal pain as well as nausea. She was transferred to the ICU because of aspiration pneumonia. It was noted that she had gastric outlet obstruction due to a duodenal mass. 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 * GOO -NGT DC'd -this is secondary to her duodenal mass -a gastrojejunostomy was performed on 12/13 * ampullary adenocarcinoma. -the biopsies from her lesion confirm this -s/p laparotomy on 12/13 with findings of carcinomatosis, D/W Dr Burk -plan is for them to f/u with Dr Burk to discuss possible chemotherapy for palliative treatment or no treatment *post op ileus -resolved -positive flatus * Malnutrition due to the GOO - DC TPN - dc fluids -ensure * pneumonia/resolved -aspiration -much improved/ on 2 liters -she has had a total of 14 days of abx (Ertapenem x 5 days and 9 days of Unasyn and Vancomycin) *pain -trial po pain meds -oxy ir ordered -ultram *hypokalemia -improved *left sided rib pain -chronic *thrush -nystatin "swish and spit" * acute hypoxemic respiratory failure -multifactorial -long hx of smoking and had pna * anemia -has been transfused a total of 3 units of packed red blood cells -continue close monitoring. Hemoglobin has been stable * depression and anxiety - Wellbutrin and Effexor -Ativan p.r.n. * nicotine dependence -patch -hx of extensive smoking for many years * chronic pain -usually on tramadol for this *dvt prophylaxis: LMWH * plan. SNF on Wednesday if doing well. Sister is very supportive, patient may move to be closer to her sister for support. Subjective: Feeling well. Small appetite. No pain. No issues. Objective: Vital Signs Temp Pulse Resp BP Pulse Ox 36.8 C 85 14 83/61 L 94 12/19/17 08:00 12/19/17 08:00 12/19/17 08:00 12/19/17 08:00 12/19/17 08:00 Laboratory Results 12/14/17 06:00 12/17/17 05:00 12/18/17 12/19/17 12/20/17 05:59 05:59 05:59 Intake Total 1686 Balance 1686 PT 14.7 SEC (12.0-15.0) 12/06/17 04:40 INR 1.13 (0.83-1.16) 12/06/17 04:40 - Physical Exam Constitutional: appears nourished, not in pain, chronically ill appearing Eyes: PERRL, anicteric sclera, EOMI Ears, Nose, Mouth, Throat: moist mucous membranes, hearing normal, ears appear normal Cardiovascular: regular rate and rhythym, No JVD, No edema Gastrointestinal: tenderness, No ascites, No distension Skin: warm, normal color, No mottled Musculoskeletal: normal joint ROM, no joint effusions, generalized weakness Neurologic: AAOx3 Psychiatric: interacting appropriately, not anxious, not encephalopathic ICD10 Worksheet Patient Problems: Problems Problem Status Onset Diarrhea Acute Vomiting Acute Dehydration Acute
[2017-12-19] MEDS: VENLAFAXINE HCL 37.5 MG TAB PO SCH ×2 (11:24→21:32)
[2017-12-19] MEDS: PROTEASE PO SCH (17:32)
[2017-12-19] MEDS: AMYLASE PO SCH (17:32)
[2017-12-19] MEDS: LIPASE PO SCH (17:32)
[2017-12-19] MEDS: PATCH REMOVAL 1 EA PATCH TD SCH (21:33)
[2017-12-20] MEDS: LORazepam 0.5 MG TAB PO PRN (04:02)
[2017-12-20] MEDS: NS 1,000 ML IV SCH (05:30)
[2017-12-20] MEDS: METOCLOPRAMIDE 10 MG/2 ML VIAL IVP SCH (05:30)
[2017-12-20] MEDS: NYSTATIN SUSP 500000 UNIT/5 ML UDCUP PO SCH ×4 (09:45→21:18)
[2017-12-20] MEDS: buPROPion 75 MG TAB PO SCH ×2 (09:46→21:18)
[2017-12-20] MEDS: VENLAFAXINE HCL 37.5 MG TAB PO SCH ×2 (09:46→21:19)
[2017-12-20] MEDS: PREGABALIN 100 MG CAP PO SCH ×3 (09:46→21:18)
[2017-12-20] MEDS: ZENPEP 25000 UNIT PO SCH ×2 (09:47→13:01)
[2017-12-20] MEDS: PANTOPRAZOLE SODIUM 40 MG VIAL IVP SCH (09:47)
[2017-12-20] MEDS: ENOXAPARIN 40 MG/0.4 ML SYR SC SCH (09:58)
[2017-12-20] MEDS: LIDOCAINE 4%/MENTHOL 1% PATCH TD SCH (10:01)
--- NOTE | 2017-12-20 10:05 | HOSPPROG ---
Hospitalist Progress Note Assessment/Plan: # GOO d/t duodenal mass - resolved s/p gastrojejunostomy # post-op ileus - resolved; stop reglan # ampullary adenocarcinoma with peritoneal mets - will f/u Dr Burk as outpatient for PET and potential chemo - getting port tomorrow # anemia - likely slow GI loss; stable now - has received 3U PRBC - protonix IV -> PO # FEN - off TPN; tolerating PO # thrush - nystatin # acute hypoxic resp failure - much better # aspiration pneumonia - completed course of abx # pain, acute on chronic - cont tramadol, oxy IR # hyperNa - resolved # MADAI - resolved # tobacco use # pancreatic insufficiency - on enzymes # depr/anxiety - cont wellbutrin, effexor # dvt ppx - lovenox Subjective: not eating much Objective: Vital Signs Temp Pulse Resp BP Pulse Ox 37.3 C 97 18 104/52 L 90 L 12/20/17 08:00 12/20/17 08:00 12/20/17 08:00 12/20/17 08:00 12/20/17 08:00 Laboratory Results 12/20/17 05:30 12/20/17 05:30 12/19/17 12/20/17 12/21/17 05:59 05:59 05:59 Intake Total 150 Balance 150 PT 14.7 SEC (12.0-15.0) 12/06/17 04:40 INR 1.13 (0.83-1.16) 12/06/17 04:40 chart reviewed op note reviewed CXR reviewed - Physical Exam Constitutional: no apparent distress, appears nourished Eyes: anicteric sclera Ears, Nose, Mouth, Throat: hearing normal Cardiovascular: regular rate and rhythym, no murmur, rub, or gallop Respiratory: no respiratory distress, no rales or rhonchi Gastrointestinal: No distension Genitourinary: No macdonald in urethra Skin: warm Musculoskeletal: No generalized weakness Neurologic: AAOx3 Psychiatric: interacting appropriately ICD10 Worksheet Patient Problems: Problems Problem Status Onset Diarrhea Acute Vomiting Acute Dehydration Acute
[2017-12-20] MEDS: SALONPAS TP SCH (10:06)
--- NOTE | 2017-12-20 10:16 | ASMTCMCOM ---
CM Note CM Note Notes: KRISTOFER spoke w/ Dr. Escalante regarding d/c POC. Dr. Navarrete plans on putting in a port tomorrow. Possible d/c for tomorrow. KRISTOFER notified and sent updates to Judith at [facility]. Judith is in the process of getting auth from [employer] NG tube was taken out on 12/17/17. CM to follow. Plan: [facility] Date Signed: 12/20/2017 10:16 AM Electronically Signed By:YAS Chavez
--- NOTE | 2017-12-20 11:44 | SOAPPROG ---
SOAP Progress Note Assessment/Plan: Assessment: 71 Y F s/p gastrojejunostomy 12/14. +peritoneal and omental mets. Did not pursue Whipple. S: No new complaints, doing well. Denies nausea. Not much of an appetite, but eating some solid food along with fluids. TPN has been stopped. O: Alert Afebrile Cardiac: RRR Lungs: CTA bilaterally Abdomen: Soft, nontender, +BS Plan: Pt seen and evaluated with Dr. Navarrete. Pt will need a port placed for palliative chemotherapy. Would like to get her set up for surgery prior to discharge, possibly tomorrow. Discharge after port placement. Pt planning to move near her sister to recover. 12/20/17 11:41 Objective: Vital Signs Temp Pulse Resp BP Pulse Ox 37.3 C 97 18 104/52 L 90 L 12/20/17 08:00 12/20/17 08:00 12/20/17 08:00 12/20/17 08:00 12/20/17 08:00 Laboratory Results 12/20/17 05:30 12/20/17 05:30 12/19/17 12/20/17 12/21/17 05:59 05:59 05:59 Intake Total 150 Balance 150 PT 14.7 SEC (12.0-15.0) 12/06/17 04:40 INR 1.13 (0.83-1.16) 12/06/17 04:40 ICD10 Worksheet Patient Problems: Problems Problem Status Onset Dehydration Acute Vomiting Acute Diarrhea Acute
[2017-12-20] MEDS: PROTEASE PO SCH (17:26)
[2017-12-20] MEDS: AMYLASE PO SCH (17:26)
[2017-12-20] MEDS: LIPASE PO SCH (17:26)
[2017-12-20] MEDS: PATCH REMOVAL 1 EA PATCH TD SCH (21:20)
[2017-12-21] MEDS: LORazepam 0.5 MG TAB PO PRN ×2 (03:10→22:28)
[2017-12-21] MEDS: NS 1,000 ML IV SCH ×2 (03:11→22:30)
[2017-12-21] MEDS ORDERED: NS 1,000 ML IV SCH (05:45)
[2017-12-21] MEDS: PANTOPRAZOLE SODIUM 40 MG TAB PO SCH (09:26)
[2017-12-21] MEDS: VENLAFAXINE HCL 37.5 MG TAB PO SCH ×2 (09:26→20:55)
[2017-12-21] MEDS: PREGABALIN 100 MG CAP PO SCH ×3 (09:26→20:54)
[2017-12-21] MEDS: buPROPion 75 MG TAB PO SCH ×2 (09:26→20:55)
[2017-12-21] MEDS: NYSTATIN SUSP 500000 UNIT/5 ML UDCUP PO SCH ×4 (09:27→20:54)
[2017-12-21] MEDS: ENOXAPARIN 40 MG/0.4 ML SYR SC SCH (09:32)
[2017-12-21] MEDS: LIDOCAINE 4%/MENTHOL 1% PATCH TD SCH (09:33)
[2017-12-21] MEDS: ZENPEP 25000 UNIT PO SCH ×2 (09:33→13:58)
[2017-12-21] MEDS: SALONPAS TP SCH (09:34)
--- NOTE | 2017-12-21 10:43 | SOAPPROG ---
SOAP Progress Note Assessment/Plan: Assessment/Plan: 71 Y F diarrhea last week, N/V over weekend. Free air on CT. Nonsurgical abdomen on exam. Distended stomach, poor emptying. 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 Aspiration PNA. Power port placement with flouroscopic guidance today. Awaiting OR to give us a time. Risks and options discussed. NPO since last night. Hold blood thinners. No CI to d/c after port placement once alert and stable and post op CXR ok. Still, could be late in the day and better to d/c in the am. s/p gastrojejunostomy. +peritoneal and omental mets. Did not pursue Whipple. NGT out. TPN stopped. Tolerating solid food. S: had an ensure and chicken salad last night. O: alert, nad ctab rrr abd soft, inc cdi, no erythema. +BS. 12/21/17 10:37 Objective: Vital Signs Temp Pulse Resp BP Pulse Ox 36.8 C 91 16 106/55 L 91 L 12/21/17 08:00 12/21/17 08:00 12/21/17 08:00 12/21/17 08:00 12/21/17 08:00 Laboratory Results 12/20/17 05:30 12/20/17 05:30 12/20/17 12/21/17 12/22/17 05:59 05:59 05:59 Intake Total 150 1600 Balance 150 1600 PT 14.7 SEC (12.0-15.0) 12/06/17 04:40 INR 1.13 (0.83-1.16) 12/06/17 04:40 ICD10 Worksheet Patient Problems: Problems Problem Status Onset Dehydration Acute Vomiting Acute Diarrhea Acute
[2017-12-21] MEDS ORDERED: ceFAZolin 2 GM/SWFI 2 GM/20 ML SYR IVP ONE (14:31)
[2017-12-21] MEDS ORDERED: BISACODYL 10 MG SUPP PR PRN (14:40)
[2017-12-21] MEDS ORDERED: POLYETHYLENE GLYCOL 3350 17 GM PKT PO PRN (14:40)
[2017-12-21] MEDS ORDERED: LACTULOSE 20 GM/30 ML UDCUP PO PRN (14:40)
[2017-12-21] MEDS ORDERED: MAGNESIUM HYDROXIDE 30 ML UDCUP PO PRN (14:40)
--- NOTE | 2017-12-21 16:38 | HOSPPROG ---
Hospitalist Progress Note Assessment/Plan: # GOO d/t duodenal mass - resolved s/p gastrojejunostomy # post-op ileus - resolved; stop reglan # ampullary adenocarcinoma with peritoneal mets - will f/u Dr Burk - does not think she will want chemo, will not place port # anemia - likely slow GI loss; stable now - has received 3U PRBC - protonix IV -> PO # FEN - off TPN; tolerating PO # thrush - nystatin # acute hypoxic resp failure - much better # aspiration pneumonia - completed course of abx # pain, acute on chronic - cont tramadol, oxy IR # hyperNa - resolved # MADAI - resolved # tobacco use # pancreatic insufficiency - on enzymes # depr/anxiety - cont wellbutrin, effexor # dvt ppx - lovenox Subjective: long discussion with patient, sister and Dr Navarrete Objective: Vital Signs Temp Pulse Resp BP Pulse Ox 36.4 C 88 18 106/68 97 12/21/17 15:34 12/21/17 15:34 12/21/17 15:34 12/21/17 15:34 12/21/17 15:34 Laboratory Results 12/20/17 05:30 12/20/17 05:30 12/20/17 12/21/17 12/22/17 05:59 05:59 05:59 Intake Total 150 1600 Balance 150 1600 PT 14.7 SEC (12.0-15.0) 12/06/17 04:40 INR 1.13 (0.83-1.16) 12/06/17 04:40 - Time Spent With Patient Time Spent with Patient: greater than 35 minutes Time Spent with Patient: Greater than 35 minutes spent on this patients care, greater than 50% of time spent counseling, educating, and coordinating care regarding the above mentioned plan. - Physical Exam Constitutional: no apparent distress, appears nourished ICD10 Worksheet Patient Problems: Problems Problem Status Onset Diarrhea Acute Vomiting Acute Dehydration Acute
[2017-12-21] MEDS: traMADol 50 MG TAB PO PRN ×2 (18:49→23:21)
[2017-12-21] MEDS: LIPASE PO SCH (18:52)
[2017-12-21] MEDS: PROTEASE PO SCH (18:52)
[2017-12-21] MEDS: AMYLASE PO SCH (18:52)
[2017-12-21] MEDS: PATCH REMOVAL 1 EA PATCH TD SCH (20:53)
[2017-12-21] MEDS: SENNOSIDES/DOCUSATE SODIUM TAB PO SCH (20:54)
[2017-12-22] MEDS: LORazepam 0.5 MG TAB PO PRN ×2 (06:03→12:21)
[2017-12-22] MEDS: traMADol 50 MG TAB PO PRN ×2 (06:03→11:04)
[2017-12-22 08:28] VITALS: BP 105/55
[2017-12-22] MEDS: VENLAFAXINE HCL 37.5 MG TAB PO SCH (09:04)
[2017-12-22] MEDS: NYSTATIN SUSP 500000 UNIT/5 ML UDCUP PO SCH (09:04)
[2017-12-22] MEDS: PANTOPRAZOLE SODIUM 40 MG TAB PO SCH (09:05)
[2017-12-22] MEDS: SALONPAS TP SCH (09:05)
[2017-12-22] MEDS: ZENPEP 25000 UNIT PO SCH (09:05)
[2017-12-22] MEDS: PREGABALIN 100 MG CAP PO SCH (09:05)
[2017-12-22] MEDS: buPROPion 75 MG TAB PO SCH (09:05)
[2017-12-22] MEDS: LIDOCAINE 4%/MENTHOL 1% PATCH TD SCH (09:05)
[2017-12-22] MEDS: SENNOSIDES/DOCUSATE SODIUM TAB PO SCH (09:06)
--- NOTE | 2017-12-22 09:48 | SOAPPROG ---
SOAP Progress Note Assessment/Plan: Assessment: 71 Y F s/p gastrojejunostomy 12/14. +peritoneal and omental mets. Did not pursue Whipple. S: Pt sleeping. Did not want to wake her up. Had planned for port placement yesterday for palliative chemo, but pt declined surgery. She would like to forego any further treatment. Plan: Happy to come back if pt has concerns. Ok to be discharged from our standpoint. Follow up with Dr. Navarrete in our office next week. 12/22/17 09:45 Objective: Vital Signs Temp Pulse Resp BP Pulse Ox 36.8 C 88 18 105/55 L 94 12/22/17 08:00 12/22/17 08:00 12/22/17 08:00 12/22/17 08:00 12/22/17 08:00 Laboratory Results 12/20/17 05:30 12/20/17 05:30 12/21/17 12/22/17 12/23/17 05:59 05:59 05:59 Intake Total 1600 1400 Balance 1600 1400 PT 14.7 SEC (12.0-15.0) 12/06/17 04:40 INR 1.13 (0.83-1.16) 12/06/17 04:40 ICD10 Worksheet Patient Problems: Problems Problem Status Onset Dehydration Acute Vomiting Acute Diarrhea Acute
--- NOTE | 2017-12-22 10:29 | SOAPPROG ---
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 Recovering from bypass. Palliative chemotherapy is an option, but amadeo has declined chemotherapy. She lives alone and does not have much local support ,but wants to go to rehab and then home. She is NOT planning on going to [place] at this time to be with her sister. I told she is encouraged to check in with her PCP, Dr. Montiel, as well as with Dr. Burk an OP. She will need ACP Plan: Likely d/c to rehab on today. 12/22/17 10:25 Subjective: Roseline wants to go to rehab. She declines palliative chemotherapy. She has a minor amount of inframammary pain today which is chronic Objective: Vital Signs Temp Pulse Resp BP Pulse Ox 36.8 C 88 18 105/55 L 94 12/22/17 08:00 12/22/17 08:00 12/22/17 08:00 12/22/17 08:00 12/22/17 08:00 Laboratory Results 12/20/17 05:30 12/20/17 05:30 12/21/17 12/22/17 12/23/17 05:59 05:59 05:59 Intake Total 1600 1400 Balance 1600 1400 PT 14.7 SEC (12.0-15.0) 12/06/17 04:40 INR 1.13 (0.83-1.16) 12/06/17 04:40 - Time Spent With Patient Time Spent With Patient: I reviewed her situation and plans today over 30 min ICD10 Worksheet Patient Problems: Problems Problem Status Onset Diarrhea Acute Vomiting Acute Dehydration Acute
--- NOTE | 2017-12-22 10:40 | PDIAF ---
- Diagnosis Diagnosis: adenocarnioma Code Status: Full Code - Medication Management Discharge Medications: Medications to Continue on Transfer Lipase/Protease/Amylase [Zenhayleyp 25,000 Unit Capsule] 2 each PO BID@ [Last Taken 3 Days Ago ~11/19/17] buPROPion XL [Wellbutrin 150mg XL] 300 mg PO HS 03/29/17 [Last Taken 3 Days Ago ~11/19/17] Acetamn/Diphenhydramine 500/25 [Tylenol PM (*)] 1 each PO HS 11/22/17 [Last Taken 3 Days Ago ~11/19/17] Lipase/Protease/Amylase [Zenpep Dr 25,000 Unit Capsule] 2 each PO AD 11/22/17 [ Last Taken 3 Days Ago ~11/19/17] Lipase/Protease/Amylase [Zenpep Dr 25,000 Unit Capsule] 3 each PO DAILY18 [Last Taken 3 Days Ago ~11/19/17] Pregabalin [Lyrica 100mg (*)] 100 mg PO TID 11/22/17 [Last Taken 3 Days Ago ~05/31] Tizanidine HCl [Zanaflex] 4 mg PO HS 11/22/17 [Last Taken 3 Days Ago ~11/19/17] Venlafaxine Xr [Effexor Xr 75MG (*)] 75 mg PO HS 11/22/17 [Last Taken 3 Days Ago ~11/19/17] Acetaminophen [Tylenol 325mg (*)] 650 mg PO Q4 PRN tab 12/22/17 [Last Taken Unknown] LORazepam [Ativan (*)] 0.5 mg PO Q4HRS PRN tab 12/22/17 [Last Taken Unknown] Lidocaine 4%/Menthol 1% [Icy Hot Lidocaine/Menthol 4%/1% Patch (*)] 1 patch TD DAILY patch 12/22/17 [Last Taken Unknown] Pantoprazole Sodium [Protonix 40mg (*)] 40 mg PO DAILY tab 12/22/17 [Last Taken Unknown] Patch Removal 1 ea TD DAILY21 patch 12/22/17 [Last Taken Unknown] Polyethylene Glycol 3350 [Miralax 17 gm (*)] 17 gm PO DAILY PRN pkt 12/22/17 [ Last Taken Unknown] Sennosides/Docusate Sodium [Senokot-S] 1 - 2 tab PO BID tab 12/22/17 [Last Taken Unknown] Sodium Cl Nasal [[place] (*)] 1 spray EACHNARE Q6 PRN btl 12/22/17 [Last Taken Unknown] oxyCODONE IR [Oxycodone Ir (*)] 5 mg PO Q4HRS PRN tab 12/22/17 [Last Taken Unknown] traMADol [Ultram 50 mg (*)] 50 mg PO Q4 PRN tab 12/22/17 [Last Taken Unknown] Discharge Medications: Refer to the Discharge Home Medication list for PRN reason. PICC Care - Routine: N/A - Orders Services needed: Registered Nurse, Physical Therapy, Occupational Therapy Isolation Type: None Diet Recommendation: low fat Additional Instructions: Avoid heavy lifting for 4-6 weeks after surgery. You may shower over your incision, gently wash with soap and water. You may continue eating a regular diet as tolerated. Call with fever, chills, or increased pain. - Follow Up Care Current Providers and Referrals: Ryder Navarrete MD [Medical Doctor] - follow up in 1 week Patient,NotPresent [Unknown] - As per Instructions Angel Burk MD [Medical Doctor] -
--- NOTE | 2017-12-22 10:55 | ASMTCMCOM ---
CM Note CM Note Notes: Pt decided not to get port, wants to discharge, ROUGH ROUNDER notified. CM called Raul at [facility] and they can take pt today. Date Signed: 12/22/2017 10:54 AM Electronically Signed By:Natividad Pena RN
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
--- NOTE | 2017-12-22 20:06 | GDS ---
[f rep st] DISCHARGE SUMMARY DISCHARGE DIAGNOSES: 1. Gastroesophageal outlet obstruction. 2. Postoperative ileus. 3. Ampullary adenocarcinoma with peritoneal metastasis. 4. Anemia. 5. Thrush. 6. Acute hypoxemic respiratory failure. 7. Aspiration pneumonia. 8. Pain. 9. Hypernatremia. 10. Acute kidney injury. 11. Tobacco use. 12. Pancreatic insufficiency. 13. Anxiety. CONSULTATIONS: 1. Hematology. 2. Surgery. PHYSICAL EXAMINATION: GENERAL: The patient is alert VITAL SIGNS: Afebrile at 36.8; pulse is 88; r espiratory rate is 18; blood pressure is 105/55. She is saturating 94% on 2 L. I have seen and eval uated the patient on the day of discharge. HOSPITAL COURSE: The patient is a 71-year-old female who presented to the emergency room with compla ints of abdominal pain. She was evaluated and diagnosed with: 1. Gastric outlet obstruction. This is in the setting of a duodenal mass. During this hospitalizat ion, she received surgical intervention and a gastrojejunostomy was placed. She is tolerating this w ell and is tolerating a regular diet at this point. 2. Postoperative ileus. This has resolved. 3. Ampullary adenocarcinoma with peritoneal metastasis. The patient has opted to not have any chemo therapy, since being given this diagnosis. Palliative chemotherapy was offered to her, and she is re fusing at this time. She is aware of hospice options and will look into this in the future. 4. Anemia. This is multifactorial and appears to be stable prior stable prior to disposition. The patient received 3 units of packed red blood cells during this hospital course. 5. Thrush. This has resolved. 6. Acute hypoxemic respiratory failure. This is significantly improved. 7. Aspiration pneumonia. This was treated with a course of antibiotic therapy and has resolved. 8. Hyponatremia. This is resolved. 9. Pancreatic insufficiency. She has been placed on enzymes. DISPOSITION: The patient will be discharged to [facility] for further rehabilitation and management. She does have a long-term plan to move to [place] where her sister resides and live with her in the last months of her diagnosis. There are no pending studies. DISCHARGE MEDICATIONS: Please refer to EMR form. TIME SPENT WITH PATIENT: I spent greater than 35 minutes in the care, coordination, and management o f this patient's disposition. FOLLOWUP: Followup will be with Dr. Humberto Navarrete as well as Dr. Burk, her oncologist. /[id number]/MODL
--- NOTE | 2017-12-27 10:07 | PQFORM ---
PHYSICIAN QUERY FORM Needs Your Response This query form is being sent to you to assure this patient record is coded properly. Please respond to the question below: WOODEN BARREL MECHANIC QUESTION: Dr Escalante Sepsis/Possible Sepsis was documented in the Progress Note and then the Dx was dropped. There was no mention of Sepsis on the Discharge Summary. Did this patient have Sepsis present on admission ? ___ Yes _x__ No ___ Other (Please Specify ) ___ Unable to Determine Thank You Yolanda LERMA Swing Tender INSTRUCTIONS FOR RESPONSE: Answer question by clicking on the "Edit Document" button. Move cursor to area below the stars. When complete, hit "Save." Click on the "Sign" button, then click "Sign" again. Type in your PIN and hit "Enter." MTDD
--- NOTE | 2018-01-19 12:52 | GOP ---
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 PROCEDURE PERFORMED: Exploratory laparotomy, gastrojejunostomy, peritoneal and omental biopsies. FINDINGS: The patient was found to have diffuse carcinomatosis involving the omentum as well as some peritoneal implants together with an obstructing tumor of the duodenum which is going into the mesen polo and surrounding the vessels in the retropancreatic area. ESTIMATED BLOOD LOSS: Less than 25 mL. DESCRIPTION OF PROCEDURE: The patient was taken to the operating room. She received satisfactory ge neral endotracheal anesthesia by Dr. Bah, placed in supine position, prepped and draped in usual s terile fashion. A midline incision was made and carried through the linea alba. The abdomen was car efully entered. There was no evidence of widespread metastatic carcinoma although there was thicknes s of the omentum. The liver was checked and appeared to be free of metastatic disease. A hard mass was palpable at the duodenum and head of the pancreas. The omentum was elevated up and it had multip le thickened spots. A piece of omentum was dissected free with the Harmonic Scalpel and sent out to Pathology. Some other peritoneal implants were also biopsied and sent to Pathology suggestive of met astatic cancer. Meantime, the lesser sac was opened. The posterior wall of the stomach was exposed. A loop of jejunum was brought up in antecolic fashion, and a [id number] anastomosis was created t o the most dependent portion of the stomach in a 2-layer fashion using 2-0 silk for the anterior and posterior layers and running 3-0 Vicryl suture for the inner layer. We created a 3 fingerbreadth katie stomosis. NG tube was positioned through the anastomosis. The suture line appeared to be hemostatic . The wound was irrigated. The biopsy sites were checked, and the abdomen was then closed with a ru nning #1 PDS suture for the linea alba, reinforced periodically with interrupted 0 Vicryl buried rete ntion sutures. The skin was closed with skin willian. She tolerated the procedure well. She was ta kevin to the recovery room in good condition. There were no complications. /[id number]/MODL
== END 2017-12-22 13:47 | DRG 326 ==
LOC: EDUNIT# → INTOOBSV 13:36 → F3E 16:08 → OBSVTOIN 11-23 15:15 → F2N 11-25 10:28 → F3E 12-05 21:20
PROVIDERS: ADMIT Internal Medicine; ATTEND Student in an Organized Health Care Education/Training Program
PROC: 0DB98ZX Excision of Duodenum, Via Natural or Artificial Opening Endoscopic, Diagnostic (ICD-10-PCS; 2017-11-25)
PROC: 0DB48ZX Excision of Esophagogastric Junction, Via Natural or Artificial Opening Endoscopic, Diagnostic (ICD-10-PCS; 2017-11-25)
PROC: 30233N1 Transfusion of Nonautologous Red Blood Cells into Peripheral Vein, Percutaneous Approach (ICD-10-PCS; 2017-11-26)
PROC: 02HV33Z Insertion of Infusion Device into Superior Vena Cava, Percutaneous Approach (ICD-10-PCS; 2017-11-27)
PROC: 0DBU0ZX Excision of Omentum, Open Approach, Diagnostic (ICD-10-PCS; principal; 2017-12-13 10:30)
PROC: 0D160ZA Bypass Stomach to Jejunum, Open Approach (ICD-10-PCS; principal; 2017-12-13 10:30)
PROC: 0DBW0ZX Excision of Peritoneum, Open Approach, Diagnostic (ICD-10-PCS; principal; 2017-12-13 10:30)
DX: C78.6 Secondary malignant neoplasm of retroperitoneum and peritoneum (principal); J69.0 Pneumonitis due to inhalation of food and vomit; C24.1 Malignant neoplasm of ampulla of Vater; J96.01 Acute respiratory failure with hypoxia; K56.7 Ileus, unspecified; B37.0 Candidal stomatitis; D63.8 Anemia in other chronic diseases classified elsewhere; N17.9 Acute kidney failure, unspecified; K86.89 Other specified diseases of pancreas; E87.0 Hyperosmolality and hypernatremia; E87.6 Hypokalemia; G89.29 Other chronic pain; F17.210 Nicotine dependence, cigarettes, uncomplicated; E46 Unspecified protein-calorie malnutrition; E83.52 Hypercalcemia; F41.8 Other specified anxiety disorders
CPT/HCPCS: 82607-90; 86301-90; 96374; 97110-GP; 97116-GP; 97161-GP; 97165-GO; 97530-GO; 97530-GP; 97535-GO; A9585; C1751; G0378; G8978-GP-CI; G8978-GP-CJ; G8979-GP-CI; G8980-GP-CJ; G8987-GO-CI; G8987-GO-CJ; G8988-GO-CI; J0295; J0694; J1170; J1335; J1650; J1940; J2060; J2250; J2370; J2405; J2550; J2704; J2765; J2997; J3010; J3370; J3480; J7613; P9016; Q9967; Q9968